=== PATIENT | female | born 1940 | race Caucasian/White ===

== ENCOUNTER 2019-01-06 11:16 | Emergency (ER) | payer MEDICARE ==
[2019-01-06] MEDS ORDERED: Sodium Chloride 0.9% 1000 ML 1,000 ML IV STA (11:47)
[2019-01-06] MEDS ORDERED: Sodium Chloride 0.9% 1000 ML 1,000 ML ONE (11:58)
[2019-01-06 12:00] LABS: Hematocrit 41.2 % (35-47); Hemoglobin 13.4 gm/dl (12.0-16.0); Mean Cell Volume 89.4 fl (78-100); Mean Corpuscular Hemoglobin 29.1 pg (26-32); Mean Corpuscular Hgb Concent. 32.5 g/dl (32-36); Platelet Count 523 K/mm3 (150-450); Red Blood Count 4.61 M/mm3 (4.1-5.4); Red Cell Distribution Width 13.5 % (11.5-14.0); White Blood Count 7.1 K/mm3 (4.0-10.5)
[2019-01-06 12:03] LABS: Appearance CLEAR (CLEAR); Bilirubin NEGATIVE (NEGATIVE); Blood NEGATIVE Ery/ul (0-5); Glucose NEGATIVE (NEGATIVE); Ketones NEGATIVE (NEGATIVE); Leukocyte Esterase NEGATIVE (NEGATIVE); Nitrite NEGATIVE (NEGATIVE); Protein,Urine Dip NEGATIVE (Negative); Specific Gravity 1.006 (1.005-1.025); Urobilinogen NEGATIVE mg/dL (0-1); WBC 0-2 /HPF (0-5)
[2019-01-06 12:14] LABS: ALBUMIN 4.2 g/dL (3.5-5.0); ALKALINE PHOSPHATASE 74 U/L (38-126); ANION GAP 16.4 MEQ/L (5-15); BLOOD UREA NITROGEN 16 mg/dL (7-17); CHLORIDE 99 mmol/L (98-107); Calcium 10.1 mg/dL (8.4-10.2); Carbon Dioxide 27 mmol/L (22-30); Creatinine 1 0.91 mg/dL (0.52-1.04); Glucose 106 mg/dL (74-106); Potassium 4.4 mmol/L (3.5-5.1); SGOT/AST 24 U/L (14-36); SGPT/ALT 21 U/L (0-35); SODIUM 138 mmol/L (137-145); Total Protein 7.8 g/dL (6.3-8.2)
--- NOTE | 2019-01-06 12:36 | ERPHSYRPT ---
- History of Present Illness Time Seen by Provider: 01/06/19 11:45 Source: patient Exam Limitations: no limitations Patient Subjective Stated Complaint: [place] like she has had flu like symptoms a couple of weeks ago and then thought she was getting better and now is extremely weak, decreased appetite, and night sweats Triage Nursing Assessment: Pt reports that about 2 weeks ago she felt like she had flu like symptoms and went and saw Kalpana French, was placed on Doxyclyline and also had an infusion of something, they found a spot on her lung and she is to have a CT done tomorrow at [facility], pt now feels extremely weak, has a decreased appetite and is waking with night sweats, BP 154/83, afebrile, denies diarrhea, denies vomiting, she found her daughter about a week ago with still unknown cause Physician History: 78 y/o white female presents with weakness, decreased appetite and flu sx for 2 weeks. pt states she did have to crawl through a window 2 weeks ago and found her daughter . pt has had a cxr within the last week. there is a "spot" present and pt has a chest ct scheduled for tomorrow. pt denies cp, denies abd pain, and denies n/v/d Timing/Duration: week(s) (2) Severity: mild Associated Symptoms: weakness Allergies/Adverse Reactions: No Known Drug Allergies Allergy (Unverified 01/06/19 11:44) Home Medications: Alendronate Sodium 70 mg [Fosamax 70 MG] 70 mg PO WEEKLY 01/04/19 [History ] Doxycycline Hyclate 100 mg [Vibramycin 100 MG] 100 mg PO DAILY 01/04/19 [ History] Enalapril Maleate 10 mg [Vasotec 10 MG] 10 mg PO DAILY 01/04/19 [History] Hx Tetanus, Diphtheria Vaccination/Date Given: Yes Hx Influenza Vaccination/Date Given: Yes Hx Pneumococcal Vaccination/Date Given: No - Review of Systems Constitutional: Weakness Eyes: No Symptoms Ears, Nose, & Throat: No Symptoms Respiratory: No Symptoms Cardiac: No Symptoms Abdominal/Gastrointestinal: Appetite Changes Genitourinary Symptoms: No Symptoms Musculoskeletal: No Symptoms Skin: No Symptoms Neurological: No Symptoms Psychological: No Symptoms Endocrine: No Symptoms Hematologic/Lymphatic: No Symptoms Immunological/Allergic: No Symptoms All Other Systems: Reviewed and Negative - Past Medical History Pertinent Past Medical History: Yes Neurological History: No Pertinent History ENT History: No Pertinent History Cardiac History: No Pertinent History Respiratory History: No Pertinent History Endocrine Medical History: No Pertinent History Musculoskeletal History: Osteoarthritis GI Medical History: Hemorrhoids History: No Pertinent History Psycho-Social History: Anxiety, Depression Female Reproductive Disorders: No Pertinent History Other Medical History: States " depression because i found my daughter a week ago" - Past Surgical History Past Surgical History: Yes Neuro Surgical History: No Pertinent History Cardiac: No Pertinent History Respiratory: No Pertinent History Gastrointestinal: No Pertinent History Genitourinary: No Pertinent History Musculoskeletal: No Pertinent History Female Surgical History: Hysterectomy Other Surgical History: BACK SURGERY - Social History Smoking Status: Never smoker Exposure to second hand smoke: No Drug Use: none Patient Lives Alone: Yes - Nursing Vital Signs Nursing Vital Signs: Initial Vital Signs Temperature 97.7 F 01/06/19 11:32 Blood Pressure 154/83 01/06/19 11:32 O2 Sat by Pulse Oximetry 96 01/06/19 11:32 Pain Scale Pain Intensity 0 - Physical Exam General Appearance: no apparent distress, alert, anxiety Eye Exam: PERRL/EOMI, eyes nml inspection Ears, Nose, Throat Exam: normal ENT inspection, moist mucous membranes Neck Exam: normal inspection, non-tender, supple, full range of motion Respiratory Exam: normal breath sounds, lungs clear, airway intact, No chest tenderness, No respiratory distress Cardiovascular Exam: regular rate/rhythm, normal heart sounds, normal peripheral pulses Gastrointestinal/Abdomen Exam: soft, normal bowel sounds, No tenderness, No guarding Pelvic Exam: not done Back Exam: normal inspection, normal range of motion, No CVA tenderness, No vertebral tenderness Extremity Exam: normal inspection, normal range of motion, pelvis stable Neurologic Exam: alert, oriented x 3, cooperative, synchronizer II-XII nml as tested Skin Exam: normal color, warm, dry Lymphatic Exam: No adenopathy SpO2 Interpretation: normal SpO2: 97 O2 Delivery: Room Air - Course Nursing assessment & vital signs reviewed: Yes EKG Interpreted by Me: RATE (78), Sinus Rhythm, NORMAL AXIS, Non-specific ST Changes, Other (no changes when compared to ekg dated 11/11/13) Ordered Tests: Active Orders 24 hr Category Date Time Status Clean Catch Urine Specimen STAT Care 01/06/19 11:47 Active EKG-ER Only STAT Care 01/06/19 11:48 Active IV Insertion STAT Care 01/06/19 11:47 Active Orthostatic Vital Signs STAT Care 01/06/19 11:47 Active CBC W DIFF Stat Lab 01/06/19 11:59 Completed CMP Stat Lab 01/06/19 11:59 Completed Manual Differential NC Stat Lab 01/06/19 11:59 Completed TROPONIN Q3H Lab 01/06/19 11:59 Completed TROPONIN Q3H Lab 01/06/19 15:00 Ordered TROPONIN Q3H Lab 01/06/19 18:00 Ordered TROPONIN Q3H Lab 01/06/19 21:00 Ordered UA W/RFX UR CULTURE Stat Lab 01/06/19 11:59 Completed Medication Summary Discontinued Medications Generic Name Dose Route Start Last Admin Trade Name Freq PRN Reason Stop Dose Admin Sodium Chloride 1,000 mls @ 999 mls/hr 01/06/19 11:47 01/06/19 12:01 Sodium Chloride 0.9% 1000 Ml IV 01/06/19 12:47 999 mls/hr .Q1H1M STA Administration Sodium Chloride Confirm 01/06/19 11:58 Sodium Chloride 0.9% 1000 Ml Administered 01/06/19 11:59 Dose 1,000 mls @ ud .ROUTE .STK-MED ONE Lab/Rad Data: Laboratory Result Diagrams 01/06/19 11:59 01/06/19 11:59 Laboratory Results 01/06/19 01/06/19 01/06/19 Range/Units 11:59 11:59 11:59 WBC 7.1 (4.0-10.5) K/mm3 RBC 4.61 (4.1-5.4) M/mm3 Hgb 13.4 (12.0-16.0) gm/dl Hct 41.2 (35-47) % MCV 89.4 (78-100) fl MCH 29.1 (26-32) pg MCHC 32.5 (32-36) g/dl RDW 13.5 (11.5-14.0) % Plt Count 523 H (150-450) K/mm3 MPV 10.0 H (6-9.5) fl Sodium 138 (137-145) mmol/L Potassium 4.4 (3.5-5.1) mmol/L Chloride 99 (98-107) mmol/L Carbon Dioxide 27 (22-30) mmol/L Anion Gap 16.4 H (5-15) MEQ/L BUN 16 (7-17) mg/dL Creatinine 0.91 (0.52-1.04) mg/dL Estimated GFR > 60.0 ML/MIN Glucose 106 (74-106) mg/dL Calcium 10.1 (8.4-10.2) mg/dL Total Bilirubin 0.40 (0.2-1.3) mg/dL AST 24 (14-36) U/L ALT 21 (0-35) U/L Alkaline Phosphatase 74 (38-126) U/L Troponin I < 0.012 (0.000-0.034) ng/mL Serum Total Protein 7.8 (6.3-8.2) g/dL Albumin 4.2 (3.5-5.0) g/dL Urine Color (YELLOW) Urine Appearance (CLEAR) Urine pH (5-6) Ur Specific [place] (1.005-1.025) Urine Protein (Negative) Urine Ketones (NEGATIVE) Urine Blood (0-5) Garth/ul Urine Nitrite (NEGATIVE) Urine Bilirubin (NEGATIVE) Urine Urobilinogen (0-1) mg/dL Ur Leukocyte Esterase (NEGATIVE) Urine WBC (Auto) (0-5) /HPF Urine RBC (Auto) (0-2) /HPF U Epithel Cells (Auto) (FEW) /HPF Urine Bacteria (Auto) (NEGATIVE) /HPF Urine Culture Reflexed (NO) Urine Glucose (NEGATIVE) mg/dL 01/06/19 Range/Units 11:59 WBC (4.0-10.5) K/mm3 RBC (4.1-5.4) M/mm3 Hgb (12.0-16.0) gm/dl Hct (35-47) % MCV (78-100) fl MCH (26-32) pg MCHC (32-36) g/dl RDW (11.5-14.0) % Plt Count (150-450) K/mm3 MPV (6-9.5) fl Sodium (137-145) mmol/L Potassium (3.5-5.1) mmol/L Chloride (98-107) mmol/L Carbon Dioxide (22-30) mmol/L Anion Gap (5-15) MEQ/L BUN (7-17) mg/dL Creatinine (0.52-1.04) mg/dL Estimated GFR ML/MIN Glucose (74-106) mg/dL Calcium (8.4-10.2) mg/dL Total Bilirubin (0.2-1.3) mg/dL AST (14-36) U/L ALT (0-35) U/L Alkaline Phosphatase (38-126) U/L Troponin I (0.000-0.034) ng/mL Serum Total Protein (6.3-8.2) g/dL Albumin (3.5-5.0) g/dL Urine Color STRAW (YELLOW) Urine Appearance CLEAR (CLEAR) Urine pH 6.0 (5-6) Ur Specific [place] 1.006 (1.005-1.025) Urine Protein NEGATIVE (Negative) Urine Ketones NEGATIVE (NEGATIVE) Urine Blood NEGATIVE (0-5) Garth/ul Urine Nitrite NEGATIVE (NEGATIVE) Urine Bilirubin NEGATIVE (NEGATIVE) Urine Urobilinogen NEGATIVE (0-1) mg/dL Ur Leukocyte Esterase NEGATIVE (NEGATIVE) Urine WBC (Auto) 0-2 (0-5) /HPF Urine RBC (Auto) NONE (0-2) /HPF U Epithel Cells (Auto) NONE (FEW) /HPF Urine Bacteria (Auto) NONE (NEGATIVE) /HPF Urine Culture Reflexed NO (NO) Urine Glucose NEGATIVE (NEGATIVE) mg/dL - Progress Progress: unchanged Counseled pt/family regarding: lab results, diagnosis, need for follow-up - Departure Departure Disposition: Home Clinical Impression: Weakness, Poor appetite Condition: Stable Critical Care Time: No Referrals: KAT FRENCH NP [Primary Care Provider] - Additional Instructions: increase your oral intake. keep your cat scan appointment for tomorrow. follow up with primary doctor for further management
[2019-01-06 13:37] LABS: Basophil 1 % (0.0-1.0); Eosinophil 1 % (0.00-3.0); Granulocyte Absolute (ANC) 4.48 (1.4-6.9); Lymphocytes 26 % (24-44); Monocyte 9 % (0.0-12.0); Neutrophils 63 % (36.0-66.0); Platelet Estimate INCREASED (NORMAL); Total Cells Counted 100
[2019-01-06 13:54] VITALS: BP 149/88; PULSE 77; O2SAT 95
== END 2019-01-06 13:56 | disposition home or self-care (01) ==
LOC: ED 11:16
DX: R53.1 Weakness (principal); R63.0 Anorexia
CPT/HCPCS: 36415; 80053; 81001; 84484; 85025; 93005; 96360; 99284

== ENCOUNTER 2019-07-22 04:13 | Emergency (ER) | payer BC, MEDICARE ==
[2019-07-22] MEDS ORDERED: PYRIDIUM 200 MG PO SCH (04:21)
[2019-07-22] MEDS ORDERED: PYRIDIUM 200 MG ONE (04:27)
[2019-07-22] MEDS ORDERED: Catapres 0.1 MG PO ONE (04:28)
[2019-07-22 04:32] VITALS: O2SAT 98
[2019-07-22] MEDS ORDERED: ZOFRAN ODT 4 MG PO ONE (04:34)
[2019-07-22 04:37] LABS: Appearance CLEAR (CLEAR); Bilirubin NEGATIVE (NEGATIVE); Blood NEGATIVE Ery/ul (0-5); Glucose NEGATIVE (NEGATIVE); Ketones SMALL (NEGATIVE); Leukocyte Esterase NEGATIVE (NEGATIVE); Mucus SLIGHT /HPF (NEGATIVE); Nitrite NEGATIVE (NEGATIVE); Protein,Urine Dip NEGATIVE (Negative); Specific Gravity 1.004 (1.005-1.025); Urobilinogen NEGATIVE mg/dL (0-1)
[2019-07-22] MEDS ORDERED: ZOFRAN ODT 4 MG ONE (04:37)
--- NOTE | 2019-07-22 04:42 | ERPHSYRPT ---
- History of Present Illness Time Seen by Provider: 07/22/19 04:20 Source: patient Exam Limitations: no limitations Patient Subjective Stated Complaint: pt arrived in er tonight stating that she cannot urinate and her uti seems to be getting worse.pt saw [employer] analyst yohana villela. has been on antibitics for this uti.has finished macrobid and is now taking cipro and is not feeling any better. pt has pain in lower abdomen and into legs. she rates pain as 8/10 Triage Nursing Assessment: pt shaking and gaurding lower abdomen stating that she has terrible pain there. Physician History: patient had urinary symptoms for the past 3 weeks. She been seen by her medical provider, who started her on Macrobid. She then was given a prescription for ciprofloxacin, but she finished Macrobid before starting ciprofloxacin. She's only been on ciprofloxacin for 2 days. She has dysuria, urinary frequency and suprapubic discomfort. Timing/Duration: week(s) (3), worse Activites at Onset: none Quality: burning Onset Location: suprapubic Pain Radiation: none Severity of Pain-Max: severe Severity of Pain-Current: severe Prior abdominal problems: similar symptoms, UTI Sexual intercourse history: not active Modifying Factors: Worsens With: urinating Associated Symptoms: dysuria, urinary frequency, No abdominal pain, No fever, No chills, No diaphoresis, No nausea, No vomiting, No nocturia, No polyuria, No loss of bladder control, No lower back pain, No lumps, No mass, No swelling, No syncope, No vaginal discharge, No vaginal fluid leakage Allergies/Adverse Reactions: No Known Drug Allergies Allergy (Verified 07/22/19 04:37) Home Medications: Alendronate Sodium 70 mg [Fosamax 70 MG] 70 mg PO WEEKLY 01/04/19 [History ] Doxycycline Hyclate 100 mg [Vibramycin 100 MG] 100 mg PO DAILY 01/04/19 [ History] Enalapril Maleate 10 mg [Vasotec 10 MG] 10 mg PO DAILY 01/04/19 [History] Ciprofloxacin HCl [Cipro] 500 mg PO DAILY 07/22/19 [History] Hx Tetanus, Diphtheria Vaccination/Date Given: Yes Hx Influenza Vaccination/Date Given: Yes Hx Pneumococcal Vaccination/Date Given: No - Review of Systems Constitutional: No Fever, No Chills, No Fatigue Eyes: No Eye Pain, No Vision Changes Ears, Nose, & Throat: No Mouth Pain, No Mouth Swelling, No Hoarse, No Painful Swallowing Respiratory: No Cough, No Dyspnea Cardiac: No Chest Pain, No Palpitations Abdominal/Gastrointestinal: Abdominal Pain, No Nausea, No Vomiting, No Hematemesis, No Hematochezia, No Melena Genitourinary Symptoms: Dysuria, Frequency, Urgency, No Hematuria, No Flank Pain , No Vaginal Discharge Musculoskeletal: No Arthralgias, No Back Pain, No Neck Pain Neurological: No Dizziness, No Focal Weakness, No Paralysis, No Parasthesia Psychological: No Anxiety Hematologic/Lymphatic: No Easy Bleeding, No Easy Bruising All Other Systems: Reviewed and Negative - Past Medical History Pertinent Past Medical History: Yes Neurological History: No Pertinent History ENT History: No Pertinent History Cardiac History: No Pertinent History, Hypertension Respiratory History: No Pertinent History Endocrine Medical History: No Pertinent History Musculoskeletal History: Osteoarthritis GI Medical History: Hemorrhoids History: No Pertinent History Psycho-Social History: Anxiety, Depression Female Reproductive Disorders: No Pertinent History Other Medical History: States " depression because i found my daughter a week ago" - Past Surgical History Past Surgical History: Yes Neuro Surgical History: No Pertinent History Cardiac: No Pertinent History Respiratory: No Pertinent History Gastrointestinal: No Pertinent History Genitourinary: No Pertinent History Musculoskeletal: No Pertinent History Female Surgical History: Hysterectomy Other Surgical History: BACK SURGERY - Social History Smoking Status: Never smoker Exposure to second hand smoke: No Drug Use: none Patient Lives Alone: Yes - Nursing Vital Signs Nursing Vital Signs: Initial Vital Signs Temperature 97.7 F 07/22/19 04:17 Pulse Rate 72 07/22/19 04:17 Respiratory Rate 18 07/22/19 04:17 O2 Sat by Pulse Oximetry 98 07/22/19 04:17 Pain Scale Pain Intensity 6 - Physical Exam General Appearance: no apparent distress Eye Exam: PERRL/EOMI, eyes nml inspection, No scleral icterus Ears, Nose, Throat Exam: normal ENT inspection, pharynx normal Neck Exam: normal inspection, non-tender, supple, full range of motion, No meningismus Respiratory Exam: normal breath sounds, lungs clear, airway intact, No chest tenderness, No respiratory distress, No diminished breath sounds, No accessory muscle use, No crackles/rales, No rhonchi, No wheezing, No stridor Cardiovascular Exam: regular rate/rhythm, normal heart sounds, normal peripheral pulses, capillary refill <2 sec Gastrointestinal/Abdomen Exam: soft, normal bowel sounds, No tenderness, No distention, No mass, No ecchymosis, No rebound Pelvic Exam: normal external exam, other (positive painless mass buldging out of the the vaginal introitus, consistent with the bladder prolaspsing; reductions attempts help place the anterior vaginal wall back into the vagina; examination chaperoned by Gisel Vasquez, DB and Paulina Dumont RN), No vaginal bleeding Rectal Exam: No hemorrhoids Back Exam: normal inspection, normal range of motion, No CVA tenderness, No vertebral tenderness, No decreased range of motion Extremity Exam: normal range of motion, pelvis stable, No inflammation, No swelling Neurologic Exam: alert, oriented x 3, cooperative, tnt powder worker II-XII nml as tested, normal mood/affect, sensation nml, No motor deficits, No agitation, No motor weakness Skin Exam: normal color, warm, dry, No rash, No jaundice, No cyanosis SpO2 Interpretation: normal SpO2: 98 O2 Delivery: Room Air - Course Nursing assessment & vital signs reviewed: Yes Ordered Tests: Active Orders 24 hr Category Date Time Status UA W/RFX UR CULTURE Stat Lab 07/22/19 04:20 Uncollected Medication Summary Generic Name Dose Route Start Last Admin Trade Name Freq PRN Reason Stop Dose Admin Phenazopyridine HCl 200 mg 07/22/19 04:21 07/22/19 04:30 Pyridium 200 Mg PO 08/21/19 04:20 200 mg TID KARLIE Administration Discontinued Medications Generic Name Dose Route Start Last Admin Trade Name Freq PRN Reason Stop Dose Admin Clonidine 0.1 mg 07/22/19 04:28 07/22/19 04:41 Catapres 0.1 Mg PO 07/22/19 04:29 Not Given STAT ONE Ondansetron HCl 4 mg 07/22/19 04:34 07/22/19 04:38 Zofran Odt 4 Mg PO 07/22/19 04:35 4 mg STAT ONE Administration Ondansetron HCl Confirm 07/22/19 04:37 Zofran Odt 4 Mg Administered 07/22/19 04:38 Dose 4 mg .ROUTE .STK-MED ONE Lab/Rad Data: Laboratory Results 07/22/19 Range/Units 04:25 Urine Color STRAW (YELLOW) Urine Appearance CLEAR (CLEAR) Urine pH 8.0 (5-6) Ur Specific [place] 1.004 (1.005-1.025) Urine Protein NEGATIVE (Negative) Urine Ketones SMALL (NEGATIVE) Urine Blood NEGATIVE (0-5) Garth/ul Urine Nitrite NEGATIVE (NEGATIVE) Urine Bilirubin NEGATIVE (NEGATIVE) Urine Urobilinogen NEGATIVE (0-1) mg/dL Ur Leukocyte Esterase NEGATIVE (NEGATIVE) Urine WBC (Auto) NONE (0-5) /HPF Urine RBC (Auto) NONE (0-2) /HPF U Epithel Cells (Auto) NONE (FEW) /HPF Urine Bacteria (Auto) NONE (NEGATIVE) /HPF Urine Mucus (Auto) SLIGHT (NEGATIVE) /HPF Urine Culture Reflexed NO (NO) Urine Glucose NEGATIVE (NEGATIVE) mg/dL patient has a urine culture from 07/06/2019: Grew out Proteus mirabilis and was pansensitive; did not mention if the culture was sensitive to nitrofurantoin. - Progress Progress: improved Air Movement: good Progress Note: 07/22/19 05:44 Some improvement with pyridium 07/22/19 06:05 Some success with reduction of bladder prolapse Counseled pt/family regarding: lab results, diagnosis, need for follow-up - Departure Departure Disposition: Home Clinical Impression: Dysuria, Female bladder prolapse, Essential hypertension Condition: Good Critical Care Time: No Referrals: KAT VILLELA NP [Primary Care Provider] - 07/22/19 (call to see if she has any referrals) GUY NINA [COURTESY STAFF] - 07/22/19 (Urologist for your reference-can help with your cystocele (bladder prolapse)) Instructions: High Blood Pressure (DC), Urinary Tract Infection, Adult (DC), Dysuria, Adult (DC), Cystocele and Rectocele (DC) Additional Instructions: it appears according to your examination that you have a prolapsed bladder also known as a cystocele. This is probably contributing to your urinary symptoms. Finish your ciprofloxacin and give the Urologist referral a call today to make an appointment to discuss further evaluation and management of your findings today. Use the medication prescribed for symptomatic relief as needed, but be aware that it will cause discoloration of urine and sometimes is excreted in tears and sweat also. Return immediately back to the emergency department if you have any new fever, no bowel pain, worsening back pain, new skin rashes, or any other concerning signs or symptoms that were not present on today's emergency department visit immediate reevaluation in the emergency department. Forms: Work/School Release Form Prescriptions: Phenazopyridine HCl 200 mg [Pyridium 200 mg] 200 mg PO TID PRN #6 tablet PRN Reason: Dysuria/Urinary Symptoms
[2019-07-22 06:28] VITALS: BP 148/89; PULSE 81
== END 2019-07-22 06:27 | disposition home or self-care (01) ==
LOC: ED 04:13
DX: R30.0 Dysuria (principal); N81.10 Cystocele, unspecified; I10 Essential (primary) hypertension; Z79.899 Other long term (current) drug therapy; F41.9 Anxiety disorder, unspecified; F32.9 Major depressive disorder, single episode, unspecified; M19.90 Unspecified osteoarthritis, unspecified site
CPT/HCPCS: 81001; 99283; Q0162; A9270-GY

== ENCOUNTER 2021-02-17 14:22 | Emergency (ER) | payer BC, MEDICARE ==
[2021-02-17] MEDS ORDERED: Zofran 4 MG/2 ML VIAL ONE (14:55)
[2021-02-17] MEDS ORDERED: Zofran 4 MG/2 ML VIAL IV ONE (15:45)
[2021-02-17] MEDS ORDERED: SUBLIMAZE 100 MCG/2 ML IV ONE (15:45)
[2021-02-17] MEDS ORDERED: SUBLIMAZE 100 MCG/2 ML ONE (15:53)
[2021-02-17 17:11] VITALS: BP 167/83; PULSE 73; O2SAT 95
--- NOTE | 2021-02-17 17:21 | ERPHSYRPT ---
- History of Present Illness Time Seen by Provider: 02/17/21 15:45 Source: patient Exam Limitations: no limitations Patient Subjective Stated Complaint: Fall Triage Nursing Assessment: Patient brought back to ED and transferred to bed with assist of 1. Patient A+O X 3. Patient's skin pink, warm and dry. Patient complains of injuries after a fall prior to coming into ED. Patient states she was standing on a 6 foot ladder cleaning out her gutters when she stood on the top of her trash can to reach for something causing the wheels on trashcan to move causing patient to fall landing on left arm and foot. Patient has obvious deformity to left wrist with bruising and swelling. Patient also has bruising and swelling to left outer ankle. Patient's left leg noted to be shorter. Patient complains of pain to left arm and foot 07/08. Patient diaphoretic. Physician History: Is an 80-year-old white female who was cleaning the gutters on her house standing on a 6 foot ladder when she attempted to step off the ladder onto a trash can that had wheels which went out from under her and she fell. She complains of pain in both feet and in the left wrist. She denies any loss of consciousness pain in her head neck back pelvis store abdomen. Occurred: just prior to arrival Reason for Fall: fell from height Injuries/Pain Location: upper extremity, lower extremity (Left wrist both feet) Loss of Consciousness: no loss of consciousness Quality: throbbing Severity of Pain-Max: severe Severity of Pain-Current: severe Modifying Factors: Improves With: movement Associated Symptoms (Fall): extremity injury Allergies/Adverse Reactions: No Known Drug Allergies Allergy (Verified 02/17/21 14:35) Home Medications: Alendronate Sodium 70 mg [Fosamax 70 MG] 70 mg PO WEEKLY 01/04/19 [History] Doxycycline Hyclate 100 mg [Vibramycin 100 MG] 100 mg PO DAILY 01/04/19 [History] Enalapril Maleate 10 mg [Vasotec 10 MG] 10 mg PO DAILY 01/04/19 [History] Ciprofloxacin HCl [Cipro] 500 mg PO DAILY 07/22/19 [History] Hx Tetanus, Diphtheria Vaccination/Date Given: Yes Hx Influenza Vaccination/Date Given: Yes Hx Pneumococcal Vaccination/Date Given: No Immunizations Up to Date: Yes Travel Risk - International Travel Have you traveled outside of the country in past 3 weeks: No - Coronavirus Screening Are you exhibiting any of the following symptoms?: No Close contact with a COVID-19 positive Pt in past 14-21 Days: No - Vaccine Status Have you recieved a Covid-19 vaccination: Yes Rad Technologist: Moderna - Vaccination Dates Date of 2cond Vaccination (if applicable): November 28, 2020 - Review of Systems Constitutional: No Fever, No Chills Eyes: No Symptoms Ears, Nose, & Throat: No Symptoms Respiratory: No Cough, No Dyspnea Cardiac: No Chest Pain, No Edema, No Syncope Abdominal/Gastrointestinal: No Abdominal Pain, No Nausea, No Vomiting, No Diarrhea Genitourinary Symptoms: No Dysuria Musculoskeletal: No Back Pain, No Neck Pain Skin: No Rash Neurological: No Dizziness, No Focal Weakness, No Sensory Changes Psychological: No Symptoms Endocrine: No Symptoms All Other Systems: Reviewed and Negative - Past Medical History Pertinent Past Medical History: Yes Neurological History: No Pertinent History ENT History: No Pertinent History Cardiac History: No Pertinent History, Hypertension Respiratory History: No Pertinent History Endocrine Medical History: No Pertinent History Musculoskeletal History: Osteoarthritis GI Medical History: Hemorrhoids History: No Pertinent History Psycho-Social History: Anxiety, Depression Female Reproductive Disorders: No Pertinent History Other Medical History: States " depression because i found my daughter a week ago" - Past Surgical History Past Surgical History: Yes Neuro Surgical History: No Pertinent History Cardiac: No Pertinent History Respiratory: No Pertinent History Gastrointestinal: No Pertinent History Genitourinary: No Pertinent History Musculoskeletal: No Pertinent History Female Surgical History: Hysterectomy Other Surgical History: BACK SURGERY - Social History Smoking Status: Never smoker Exposure to second hand smoke: Yes Drug Use: none Patient Lives Alone: Yes - Female History Hx Now: No - Nursing Vital Signs Nursing Vital Signs: Initial Vital Signs Pulse Rate 66 02/17/21 15:30 Respiratory Rate 18 02/17/21 15:30 Blood Pressure 152/65 02/17/21 15:30 O2 Sat by Pulse Oximetry 96 02/17/21 15:30 Pain Scale Pain Intensity 10 - [place] Coma Score Best Eye Response (Miki): (4) open spontaneously Best Verbal Response ([place]): (5) oriented Best Motor Response (Miki): (6) obeys commands [place] Total: 15 - Physical Exam General Appearance: moderate distress, alert Head Injury: no evidence of injury Eye Exam: PERRL/EOMI ENT Exam: airway nml Neck Exam: normal inspection, No tenderness Respiratory/Chest Exam: normal breath sounds, No chest tenderness, No respiratory distress Cardiovascular Exam: normal heart sounds Gastrointestinal Exam: soft, No tenderness, No distention, No guarding, No ecchymosis Rectal Exam: deferred Back Exam: normal inspection, No vertebral tenderness Extremity Exam: other (Examination of the left upper extremity shows a swan-neck deformity of the wrist with an obvious fracture neurovascular tendon are intact pulses intact cap refill is good. There is also tenderness in both heels the left worse than the right) Neurologic Exam: alert, oriented x 3, cooperative, nml cerebellar function, No motor deficits, No sensory deficit Skin Exam: normal color, warm, dry SpO2 Interpretation: normal SpO2: 95 O2 Delivery: Room Air Procedures - Splinting Location of Splint: Left, Wrist Type of Splint: Orthoglass Short Arm Splint Splint Applied By: ED Nurse Pre-Proc Neuro Vasc Exam: normal Post-Proc Neuro Vasc Exam: neurovascular intact - Course Nursing assessment & vital signs reviewed: Yes - Radiology Exams Other X-ray Interpretation: Interpreted by me, Other (X-rays of the feet show bilateral calcaneus fractures x-rays of the left wrist shows a comminuted displaced fracture of the wrist) Ordered Tests: Active Orders 24 hr Category Date Time Status ANKLE (3 VIEWS) Stat Exams 02/17/21 14:52 Taken ANKLE (3 VIEWS) Stat Exams 02/17/21 16:10 Taken FOOT (MINIMUM 3 VIEWS) Stat Exams 02/17/21 14:53 Taken FOOT (MINIMUM 3 VIEWS) Stat Exams 02/17/21 16:10 Taken WRIST (MIN 3 VIEWS) Stat Exams 02/17/21 14:53 Taken Medication Summary Discontinued Medications Generic Name Dose Route Start Last Admin Trade Name Freq PRN Reason Stop Dose Admin Fentanyl Citrate Confirm 02/17/21 15:53 Sublimaze 100 Mcg/2 Ml Administered 02/17/21 15:54 Dose 100 mcg .ROUTE .STK-MED ONE Ondansetron HCl Confirm 02/17/21 14:55 Zofran 4 Mg/2 Ml Vial Administered 02/17/21 14:56 Dose 4 mg .ROUTE .STK-MED ONE - Progress Progress: improved - Departure Departure Disposition: Transfer (Deferred to [facility] to Dr. June was the accepting physician) Clinical Impression: Bilateral calcaneal fractures, Left wrist fracture Condition: Fair Critical Care Time: No Referrals: KAT JARA, AYUSH [Primary Care Provider] -
--- NOTE | 2021-02-17 22:05 | XRAY ---
Indication: Pain following fall. Comparison: None 3 view right ankle demonstrates osteopenia. No other bony, articular, or soft tissue abnormalities.
--- NOTE | 2021-02-17 22:07 | XRAY ---
Indication: Pain following fall. Comparison: None 3 view left ankle demonstrates nondisplaced plantar calcaneus fracture with soft tissue swelling. Incidental osteopenia. No other bony, articular, or soft tissue abnormalities. Comment: Interpreting ER clinician does not report fracture. I gave telephone report to Dr. Yao at 2203 hrs on February 17, 2021.
--- NOTE | 2021-02-17 22:09 | XRAY ---
Indication: Pain following fall. Comparison: None 3 nonweightbearing views left foot demonstrates nondisplaced plantar calcaneus fracture with soft tissue swelling. Incidental osteopenia and old distal 5th metatarsal fracture. No other bony, articular, or soft tissue abnormalities. Comment: Interpreting ER clinician does not report fracture. I gave telephone report to Dr. Yao at 2203 hrs on February 17, 2021.
--- NOTE | 2021-02-17 22:09 | XRAY ---
Indication: Pain following fall. Comparison: None 3 nonweightbearing views right foot demonstrates osteopenia and old 3rd metatarsal head fracture. No other bony, articular, or soft tissue abnormalities.
--- NOTE | 2021-02-17 22:11 | XRAY ---
Indication: Pain following fall. Comparison: None 3 view left wrist demonstrates comminuted and displaced distal radius/ulna fractures with bayonet apposition/alignment, intra-articular fracture extension, and soft tissue swelling. Elsewhere osteopenia and mild degenerative changes 1st metacarpal multangular articulation. No other bony, articular, or soft tissue abnormalities. Comment: Interpreting ER clinician does not report fracture. I gave telephone report to Dr. Yao at 2203 hrs on February 17, 2021.
== END 2021-02-17 18:15 | disposition short-term general hospital (02) ==
LOC: ED 14:22
DX: S92.002A Unspecified fracture of left calcaneus, initial encounter for closed fracture (principal); S92.001A Unspecified fracture of right calcaneus, initial encounter for closed fracture; W11.XXXA Fall on and from ladder, initial encounter; Y93.9 Activity, unspecified; Y92.9 Unspecified place or not applicable
CPT/HCPCS: 73110; 73610; 73630; 96374; 96375; 99285; J2405; J3010

== ENCOUNTER 2022-05-05 16:34 | Emergency (ER) | payer MEDICARE, OTHER ==
--- NOTE | 2022-05-05 16:41 | ERPHSYRPT ---
- History of Present Illness Time Seen by Provider: 05/05/22 16:41 Source: patient Exam Limitations: no limitations Physician History: This is an 81-year-old white female who presents to the emergency department after 8 days of having back pain. Patient has a history of hypertension and osteoporosis. She went to urgent care a couple of days ago and they gave her an injection of some type of medication but she does not recall the name of that. She states she did not have any imaging done and she was not provided with any type of prescription. Her back pain has persisted. She did not fall or have any acute traumatic injury. She has no urinary issues. Patient drove herself into the hospital and cannot get a ride home per her report. Timing/Duration: day(s) (8) Method of Injury: other (No injury) Quality: aching, cramping Back Pain Location: lumbar spine, paraspinous muscles Severity of Pain-Max: moderate Severity of Pain-Current: moderate Modifying Factors: Improves With: movement Associated Symptoms: lower back pain, muscle spasms, No urinary incontinence, No loss of bowel control, No problems urinating, No numbness in legs/feet, No sensory/motor loss, No tingling in legs/feet Previous symptoms: no prior history Allergies/Adverse Reactions: No Known Drug Allergies Allergy (Verified 02/17/21 14:35) Home Medications: Alendronate Sodium 70 mg [Fosamax 70 MG] 70 mg PO WEEKLY 01/04/19 [History] Enalapril Maleate 10 mg [Vasotec 10 MG] 10 mg PO DAILY 01/04/19 [History] Carvedilol [Coreg ] 6.25 mg PO BID 05/05/22 [History] Pravastatin Sodium 20 mg PO DAILY 05/05/22 [History] Hx Tetanus, Diphtheria Vaccination/Date Given: Yes Hx Influenza Vaccination/Date Given: Yes Hx Pneumococcal Vaccination/Date Given: No Travel Risk - International Travel Have you traveled outside of the country in past 3 weeks: No - Coronavirus Screening Are you exhibiting any of the following symptoms?: No Close contact with a COVID-19 positive Pt in past 14-21 Days: No - Vaccine Status Have you recieved a Covid-19 vaccination: Yes Wire Bound Box Machine Helper: Moderna - Vaccination Dates Date of 2cond Vaccination (if applicable): November 28, 2020 - Review of Systems Constitutional: No Symptoms Eyes: No Symptoms Ears, Nose, & Throat: No Symptoms Respiratory: No Symptoms Cardiac: No Symptoms Abdominal/Gastrointestinal: No Symptoms Genitourinary Symptoms: No Symptoms Musculoskeletal: Back Pain Skin: No Symptoms Neurological: No Symptoms Psychological: No Symptoms Endocrine: No Symptoms Hematologic/Lymphatic: No Symptoms Immunological/Allergic: No Symptoms All Other Systems: Reviewed and Negative - Past Medical History Pertinent Past Medical History: Yes Neurological History: No Pertinent History ENT History: No Pertinent History Cardiac History: No Pertinent History, Hypertension Respiratory History: No Pertinent History Endocrine Medical History: No Pertinent History Musculoskeletal History: Osteoarthritis GI Medical History: Hemorrhoids History: No Pertinent History Psycho-Social History: Anxiety, Depression Female Reproductive Disorders: No Pertinent History Other Medical History: States " depression because i found my daughter a week ago" - Past Surgical History Past Surgical History: Yes Neuro Surgical History: No Pertinent History Cardiac: No Pertinent History Respiratory: No Pertinent History Gastrointestinal: No Pertinent History Genitourinary: No Pertinent History Musculoskeletal: No Pertinent History Female Surgical History: Hysterectomy Other Surgical History: BACK SURGERY - Social History Smoking Status: Never smoker Exposure to second hand smoke: Yes Drug Use: none Patient Lives Alone: Yes - Nursing Vital Signs Nursing Vital Signs: Initial Vital Signs Temperature 98.5 F 05/05/22 16:35 Pulse Rate 80 05/05/22 16:35 Respiratory Rate 18 05/05/22 16:35 Blood Pressure 184/122 05/05/22 16:35 O2 Sat by Pulse Oximetry 97 05/05/22 16:35 Pain Scale Pain Intensity [Left Lower 8 Back] Pain Intensity 8 - Physical Exam General Appearance: no apparent distress, alert, anxiety, thin Eye Exam: PERRL/EOMI, eyes nml inspection Ears, Nose, Throat Exam: normal ENT inspection, moist mucous membranes Neck Exam: normal inspection, non-tender, supple, full range of motion Respiratory Exam: normal breath sounds, lungs clear, airway intact, No chest tenderness, No respiratory distress Cardiovascular Exam: regular rate/rhythm, normal heart sounds, normal peripheral pulses Gastrointestinal Exam: soft, normal bowel sounds, No tenderness Pelvic Exam: not done Rectal Exam: not done Back Exam: vertebral tenderness (Mild lumbar level), decreased range of motion, muscle spasm, No CVA tenderness Extremity Exam: normal inspection, normal range of motion, pelvis stable, other (Pedal pulses are strong and equal bilaterally) Neurologic Exam: alert, oriented x 3, cooperative, retail brand ambassador II-XII nml as tested, normal mood/affect, nml cerebellar function, nml station & gait, sensation nml Skin Exam: normal color, warm, dry Lymphatic Exam: No adenopathy SpO2 Interpretation: normal O2 Delivery: Room Air - Course Nursing assessment & vital signs reviewed: Yes Ordered Tests: Active Orders 24 hr Category Date Time Status LUMBAR SPINE W/O [CT] Stat Exams 05/05/22 17:52 Taken Medication Summary Discontinued Medications Generic Name Dose Route Start Last Admin Trade Name Freq PRN Reason Stop Dose Admin Hydrocodone Bitart/Acetaminophen 2 tab 05/05/22 18:04 Hydrocodone/Apap 5/325 Mg Tablet PO 05/05/22 18:05 SENT HOME W/ PATIENT ONE Hydrocodone Bitart/Acetaminophen Confirm 05/05/22 18:09 Hydrocodone/Apap 5/325 Mg Tablet Administered 05/05/22 18:10 Dose 2 tab .ROUTE .STK-MED ONE - Progress Progress: unchanged Progress Note: 05/05/22 18:37 CAT scan of lumbar spine shows L1 compression fracture that is of indeterminate age. There is also some mild cord compression in the L3-L4, L4-L5 spaces. There are multilevel degenerative changes in the lumbar spine Counseled pt/family regarding: diagnosis, need for follow-up, rad results - Departure Departure Disposition: Home Clinical Impression: Compression fx, lumbar spine Condition: Stable Critical Care Time: No Referrals: KAT JARA NP [Primary Care Provider] - Follow up/PCP as directed Additional Instructions: Take your medication as prescribed. Call your primary care provider's office tomorrow to make arrangements for follow-up appointment and referral to a back specialist if indicated. Do not do any excessive lifting bending twisting running or jumping activity. Prescriptions: Hydrocodone/APAP 5/325 [[place] 5/325 mg] 1 each PO Q8H PRN PRN #6 tablet MDD 3 PRN Reason: Pain Prednisone 10 mg [Deltasone 10 mg] 10 mg PO TID #12 tablet
[2022-05-05 17:22] VITALS: BP 176/109; PULSE 89; O2SAT 95
[2022-05-05] MEDS ORDERED: NORCO 5/325 MG PO ONE (18:04)
[2022-05-05] MEDS ORDERED: NORCO 5/325 MG ONE (18:09)
--- NOTE | 2022-05-05 20:20 | XRAY ---
Indication: Low back pain 1 week. Multiple contiguous axial images obtained through the lumbar spine. Sagittal and coronal reformatted images obtained. Comparison: June 14, 2008 Osseous structures remain demineralized. Worsening L2-L3 and L4-S1 degenerative disc disease with now disc space loss and degenerative vacuum disc phenomena. Again bilateral L5 spondylolysis with worsening 5-6 mm anterolisthesis, previously 3-4 mm. Interval L4 kyphoplasty. New L1 compression fracture with approximately 25-50% height loss of uncertain chronicity without spinal canal or foraminal stenosis. Remaining visualized noncontrasted soft tissues again demonstrates mild bibasilar fibrosis/scarring and worsening mild scattered aortoiliac calcifications without AAA. Impression: 1. New L1 compression fracture of uncertain chronicity. 2. Status post L4 kyphoplasty. 3. Again osteopenia with worsening multilevel degenerative disc disease. 4. Again L5 spondylolysis with worsening grade 1-2 listhesis. Comment: Preliminary interpretation made by [facility]. No critical discrepancy.
== END 2022-05-05 18:45 | disposition home or self-care (01) ==
LOC: ED 16:34
DX: M48.56XA Collapsed vertebra, not elsewhere classified, lumbar region, initial encounter for fracture (principal); M54.50 Low back pain, unspecified; I10 Essential (primary) hypertension; Z79.891 Long term (current) use of opiate analgesic; Z79.52 Long term (current) use of systemic steroids; Z79.899 Other long term (current) drug therapy
CPT/HCPCS: 72131; 99283; A9270-GY

== ENCOUNTER 2022-09-29 16:00 | Emergency (ER) | payer MEDICARE, OTHER ==
[2022-09-29] MEDS ORDERED: NORCO 5/325 MG ONE ×2 (16:30→17:54)
[2022-09-29] MEDS ORDERED: NORCO 5/325 MG PO ONE ×2 (16:30→17:40)
[2022-09-29] MEDS ORDERED: DELTASONE 20 MG ONE (16:30)
[2022-09-29 16:34] VITALS: O2SAT 96
[2022-09-29 16:36] LABS: Appearance CLEAR (CLEAR); Bilirubin NEGATIVE (NEGATIVE); Glucose NEGATIVE (NEGATIVE); Ketones TRACE (NEGATIVE); RBC TRACE-INTACT Ery/ul (0-5); Specific Gravity 1.015 (1.005-1.025)
[2022-09-29 16:37] LABS: Dipstick done @ ? MAIN LAB; Nitrite NEGATIVE (NEGATIVE); Protein,Urine Dip NEGATIVE (Negative); Urobilinogen 0.2 mg/dL (0-1)
[2022-09-29 16:38] LABS: Bacteria RARE /HPF (NEGATIVE); Epithelial Cells RARE /HPF (FEW); Mucus SLIGHT /HPF (NEGATIVE); RBC 0-2 /HPF (0-2)
[2022-09-29 16:42] LABS: Urine Cultured Indicated? YES
[2022-09-29 17:13] LABS: INFLUENZA A NEGATIVE (NEGATIVE); INFLUENZA B NEGATIVE (NEGATIVE); RESPIRATORY SYNCTIAL VIRUS NEGATIVE (Negative)
[2022-09-29 17:18] LABS: SARS-CoV-2 Xpert Express POSITIVE (NEGATIVE)
[2022-09-29] MEDS ORDERED: Sodium Chloride 0.9% 1000 ML 1,000 ML IV SCH (17:45)
--- NOTE | 2022-09-29 17:53 | ERPHSYRPT ---
- History of Present Illness Time Seen by Provider: 09/29/22 16:30 Source: patient Exam Limitations: no limitations Patient Subjective Stated Complaint: C/O lower back pain that started yesterday. Patient states she was putting up [place] decorations at home yesterday and may have twisted her back lifting the heavy chest lid. Triage Nursing Assessment: Patient brought back to the ED in w/c. She is alert and oriented. No SOB. Body movements are slow related to pain level. Patient displaying s/s of pain. No skin alterations noted to back. Physician History: Patient is an 82-year-old female who is very pleasant who presents with low back pain. She was putting up [place] decorations yesterday in her home and thinks she lifted the lid of a very heavy chest which exacerbated her low back pain. In April of last year she had an episode of low back pain which was due to spinal stenosis and compression fracture of L1. 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 She does have a history of hypertension and osteopenia. Timing/Duration: yesterday Method of Injury: bending, lifting Quality: sharp, aching Back Pain Location: lumbar spine Back Pain Radiation: lower legs Modifying Factors: Improves With: movement Associated Symptoms: nausea, numbness in legs/feet, tingling in legs/feet, lower back pain Previous symptoms: no prior history Allergies/Adverse Reactions: No Known Drug Allergies Allergy (Verified 09/29/22 16:20) Home Medications: Alendronate Sodium 70 mg [Fosamax 70 MG] 70 mg PO WEEKLY 01/04/19 [History] Enalapril Maleate 10 mg [Vasotec 10 MG] 10 mg PO BID 01/04/19 [History] Carvedilol [Coreg ] 6.25 mg PO BID 05/05/22 [History] Pravastatin Sodium 40 mg PO DAILY 05/05/22 [History] Amlodipine Besylate [Norvasc] 1 tab PO DAILY 09/29/22 [History] Hx Tetanus, Diphtheria Vaccination/Date Given: Yes Hx Influenza Vaccination/Date Given: No (Last one in 2020) Hx Pneumococcal Vaccination/Date Given: No Immunizations Up to Date: Yes Travel Risk - International Travel Have you traveled outside of the country in past 3 weeks: No - Coronavirus Screening Are you exhibiting any of the following symptoms?: Yes Symptoms: Fever, Headaches/Body Aches/Fatigue - Vaccine Status Have you recieved a Covid-19 vaccination: Yes 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 - Vaccination Dates Date of 2cond Vaccination (if applicable): November 28, 2020 - Review of Systems Constitutional: No Fever, No Chills Eyes: No Symptoms Ears, Nose, & Throat: No Symptoms Respiratory: No Cough, No Dyspnea Cardiac: No Chest Pain, No Edema, No Syncope Abdominal/Gastrointestinal: No Abdominal Pain, No Nausea, No Vomiting, No Diarrhea Genitourinary Symptoms: No Dysuria Musculoskeletal: Arthralgias, Back Pain, Myalgias, No Neck Pain Skin: No Rash Neurological: No Dizziness, No Focal Weakness, No Sensory Changes Psychological: No Symptoms Endocrine: No Symptoms All Other Systems: Reviewed and Negative - Past Medical History Pertinent Past Medical History: Yes Neurological History: No Pertinent History ENT History: No Pertinent History Cardiac History: High Cholesterol, Hypertension Respiratory History: No Pertinent History Endocrine Medical History: No Pertinent History Musculoskeletal History: Osteoarthritis, Osteoporosis GI Medical History: Hemorrhoids History: No Pertinent History Psycho-Social History: Anxiety, Depression Female Reproductive Disorders: No Pertinent History Other Medical History: States " depression because i found my daughter a week ago" - Past Surgical History Past Surgical History: Yes Neuro Surgical History: No Pertinent History Cardiac: No Pertinent History Respiratory: No Pertinent History Gastrointestinal: No Pertinent History Genitourinary: No Pertinent History Musculoskeletal: No Pertinent History Female Surgical History: Hysterectomy Other Surgical History: BACK SURGERY - Social History Smoking Status: Never smoker Exposure to second hand smoke: Yes Drug Use: none Patient Lives Alone: Yes - Nursing Vital Signs Nursing Vital Signs: Initial Vital Signs Temperature 98 F 09/29/22 16:21 Pulse Rate 70 09/29/22 16:21 Respiratory Rate 19 09/29/22 16:21 Blood Pressure 186/100 09/29/22 16:21 O2 Sat by Pulse Oximetry 96 09/29/22 16:21 Pain Scale Pain Intensity [Lower back] 10 Pain Intensity 10 - Physical Exam General Appearance: moderate distress Eye Exam: PERRL/EOMI, eyes nml inspection Ears, Nose, Throat Exam: normal ENT inspection Neck Exam: normal inspection, non-tender, supple, full range of motion, No meningismus, No midline tenderness Respiratory Exam: normal breath sounds, lungs clear, No respiratory distress Cardiovascular Exam: regular rate/rhythm, normal heart sounds Gastrointestinal Exam: soft, normal bowel sounds Pelvic Exam: not done Rectal Exam: deferred Back Exam: vertebral tenderness, decreased range of motion, point tenderness Extremity Exam: normal inspection, normal range of motion, No calf tenderness, No pedal edema Neurologic Exam: alert, oriented x 3, cooperative Skin Exam: normal color, warm, dry, No rash SpO2 Interpretation: normal SpO2: 96 O2 Delivery: Room Air - Course Nursing assessment & vital signs reviewed: Yes Ordered Tests: Active Orders 24 hr Category Date Time Status IV Insertion STAT Care 09/29/22 17:41 Ordered LUMBAR SPINE W/O [CT] Stat Exams 09/29/22 16:26 Taken BLOOD CULTURE Stat Lab 09/29/22 17:42 Ordered CBC W DIFF Stat Lab 09/29/22 17:41 Ordered CMP Stat Lab 09/29/22 17:41 Ordered CULTURE,URINE Stat Lab 09/29/22 16:28 Received Lactic Acid Stat Lab 09/29/22 17:41 Ordered UA W/RFX CULTURE Stat Lab 09/29/22 16:28 Completed Medication Summary Generic Name Dose Route Start Last Admin Trade Name Freq PRN Reason Stop Dose Admin Sodium Chloride 1,000 mls @ 100 mls/hr 09/29/22 17:45 Sodium Chloride 0.9% 1000 Ml IV 10/29/22 17:44 .Q10H KARLIE Prednisone 20 mg 09/30/22 16:30 09/29/22 16:33 Prednisone 20 Mg Tablet PO 09/30/22 16:31 20 mg STAT ONE Administration Discontinued Medications Generic Name Dose Route Start Last Admin Trade Name Freq PRN Reason Stop Dose Admin Hydrocodone Bitart/Acetaminophen 1 tab 09/29/22 16:30 09/29/22 16:33 Hydrocodone/Apap 5/325 1 Tab Tablet PO 09/29/22 16:31 1 tab STAT ONE Administration Hydrocodone Bitart/Acetaminophen Confirm 09/29/22 16:30 Hydrocodone/Apap 5/325 1 Tab Tablet Administered 09/29/22 16:31 Dose 1 tab .ROUTE .STK-MED ONE Hydrocodone Bitart/Acetaminophen 1 tab 09/29/22 17:40 Hydrocodone/Apap 5/325 1 Tab Tablet PO 09/29/22 17:41 STAT ONE Prednisone Confirm 09/29/22 16:30 Prednisone 20 Mg Tablet Administered 09/29/22 16:31 Dose 20 mg .ROUTE .STK-MED ONE Lab/Rad Data: Laboratory Results 09/29/22 09/29/22 Range/Units 16:40 16:28 Urinalys Dipstick Clnc MAIN LAB Urine Color YELLOW (YELLOW) Urine Appearance CLEAR (CLEAR) Urine pH 7.0 (5-6) Ur Specific [place] 1.015 (1.005-1.025) POC Urine Protein Conf NEGATIVE (Negative) Urine Ketones TRACE A (NEGATIVE) Urine Nitrite NEGATIVE (NEGATIVE) Urine Bilirubin NEGATIVE (NEGATIVE) Urine Urobilinogen 0.2 (0-1) mg/dL Urine Leukocytes TRACE A (NEGATIVE) Urine WBC (Auto) 6-10 A (0-5) /HPF Urine RBC (Auto) 0-2 (0-2) /HPF U Epithel Cells (Auto) RARE (FEW) /HPF Urine Bacteria (Auto) RARE (NEGATIVE) /HPF Urine RBC TRACE-INTACT A (0-5) Garth/ul Urine Mucus (Auto) SLIGHT A (NEGATIVE) /HPF Ur Culture Indicated? YES Urine Glucose NEGATIVE (NEGATIVE) mg/dL Influenza Type A Ag NEGATIVE (NEGATIVE) Influenza Type B Ag NEGATIVE (NEGATIVE) RSV (PCR) NEGATIVE (Negative) SARS-CoV-2 (PCR) POSITIVE A (NEGATIVE) - Progress Progress Note: 09/29/22 17:53 There is some uncertainty as to whether the patient's back discomfort is a result of exacerbation of some of her chronic back problems or whether it could represent back pain related to COVID. Either way the patient is insistent on going home she wants some pain medicine and some steroids which is the regimen she was treated with before and she did well. 09/29/22 18:07 I wish to make certain that it is clear that this patient was offered admission. Patient is quite adamant that she wants to go home. It appears that most of her pain is due to compression fracture new of L2, endplate deformities of T11, and a suspected fracture of the left sacrum. - Departure Departure Disposition: Home Clinical Impression: Compression fx, lumbar spine, COVID Condition: Stable Critical Care Time: No Referrals: KAT JARA VETERINARY PHYSIOLOGIST [Primary Care Provider] - Follow up/PCP as directed Instructions: Low Back Pain (DC) Prescriptions: Hydrocodone/Acetaminophen [Hydrocodone-Acetamin 5-325 mg] 1 tab PO Q6HPRN PRN 3 Days #12 tablet MDD 4 PRN Reason: Pain Prednisone 5 mg [Deltasone 5 mg] 10 mg PO BID 6 Days #12 tablet ondansetron HCL [Zofran] 4 mg PO Q8H 7 Days #21 tablet
[2022-09-29] MEDS ORDERED: Hydromorphone 1 mg/ml Injection IM ONE (17:54)
[2022-09-29] MEDS ORDERED: ZOFRAN ODT 4 MG PO ONE (17:55)
[2022-09-29] MEDS ORDERED: ZOFRAN ODT 4 MG ONE (18:07)
[2022-09-29] MEDS ORDERED: Hydromorphone 1 mg/ml Injection ONE (18:07)
[2022-09-29 18:09] VITALS: BP 181/95; PULSE 70
--- NOTE | 2022-09-29 19:48 | XRAY ---
Indication: New onset low back pain. No known injury. Multiple contiguous axial images obtained through the lumbar spine. Sagittal and coronal reformatted images obtained. Comparison: May 05, 2022 Again age-related osteopenia, multilevel broadbase degenerative disc disease again greatest at L4-S1 levels, and L4 kyphoplasty. Progressive worsening L1 compression fracture with now near-complete collapse now encroaching on the spinal canal and T12-L1 foramina. New nondisplaced corner fracture left anterior sacrum adjacent to SI joint and also new incompletely visualized T11 fracture. No obvious large central disc herniation or canal stenosis. Again incidental bilateral L5 spondylolysis with grade 1-2 listhesis. Visualized noncontrasted soft tissues again demonstrates mild scattered aortoiliac calcifications. New small hiatal hernia. Impression: 1. New nondisplaced left sacral fracture and incompletely visualized T11 fracture. 2. Progressive worsening L1 compression fracture with spinal canal and foraminal encroachment as detailed. 3. New small hiatal hernia. 4. Stable chronic findings including osteopenia, multilevel degenerative spondylosis, bilateral L5 spondylolysis with grade 1-2 listhesis, and arteriosclerotic disease. Comment: Preliminary interpretation made by [facility] [[email or web address]]. No critical discrepancy.
[2022-09-30] MEDS ORDERED: DELTASONE 20 MG PO ONE (16:30)
== END 2022-09-29 18:31 | disposition home or self-care (01) ==
LOC: ED 16:00
DX: S32.020A Wedge compression fracture of second lumbar vertebra, initial encounter for closed fracture (principal); X50.0XXA Overexertion from strenuous movement or load, initial encounter; Y93.E9 Activity, other interior property and clothing maintenance; U07.1 COVID-19; M54.50 Low back pain, unspecified; I10 Essential (primary) hypertension; E78.5 Hyperlipidemia, unspecified; Z79.891 Long term (current) use of opiate analgesic; Z79.52 Long term (current) use of systemic steroids; Z79.899 Other long term (current) drug therapy
CPT/HCPCS: 0241U; 72131; 81015; 87086; 96372; 99284; J1170; Q0162; A9270-GY

== ENCOUNTER 2022-10-02 03:44 | Emergency (ER) | payer MEDICARE, OTHER ==
[2022-10-02] MEDS ORDERED: TYLENOL EXTRA STRENGTH 500 MG PO STA (04:09)
[2022-10-02 04:11] VITALS: BP 166/90; PULSE 82; O2SAT 93
[2022-10-02] MEDS ORDERED: TYLENOL EXTRA STRENGTH 500 MG ONE (04:15)
[2022-10-02] MEDS ORDERED: NORCO 5/325 MG PO ONE (04:37)
[2022-10-02] MEDS ORDERED: NORCO 5/325 MG ONE (04:43)
--- NOTE | 2022-10-02 04:45 | ERPHSYRPT ---
- History of Present Illness Time Seen by Provider: 10/02/22 04:07 Source: patient Exam Limitations: no limitations Patient Subjective Stated Complaint: pt states she is having lower back pain, since 09/28/22. she was here on 09/29/22 and was given medications but she has ran out of them. states she hasnt lifted anything or pulled anything Triage Nursing Assessment: pt brought to room via wheelchair, was able to transfer to bed SBA. pt is A&O x 3. complaint of lower back pain 07/08. pt drove herself here, states she lives alone. Physician History: 82 years old female presented today in the ER with chief complaint of low back pain for the last 4 days. Patient apparently was lifting some [employer] tree boxes and started to have pain in the low back. She was evaluated in the ER the next day and had a CT done with nondisplaced sacral fracture, does have chronic compression fracture of L1. She does not have any numbness tingling or weakness of lower extremities. She was also positive for COVID-19 and was given pain medication as she did not wanted to stay in the hospital. She is done with her pain medication but still having a lot of pain and cannot sleep as she ran out of pain medicine this evening. She denies a fall or trauma. Timing/Duration: day(s) (4), gradual onset, worse Method of Injury: unknown Quality: sharp, throbbing Back Pain Location: lumbar spine, coccyx, paraspinous muscles Severity of Pain-Max: severe Severity of Pain-Current: severe Modifying Factors: Improves With: pain medication. Worsens With: movement Associated Symptoms: lower back pain, muscle spasms, No fever, No sweating, No urinary incontinence, No loss of bowel control, No nausea, No vomiting, No problems urinating, No numbness in legs/feet, No weakness, No sensory/motor loss, No tingling in legs/feet Previous symptoms: same symptoms as today Allergies/Adverse Reactions: No Known Drug Allergies Allergy (Verified 10/03/22 02:23) Home Medications: Alendronate Sodium 70 mg [Fosamax 70 MG] 70 mg PO WEEKLY 01/04/19 [History] Enalapril Maleate 10 mg [Vasotec 10 MG] 10 mg PO BID 01/04/19 [History] Carvedilol [Coreg ] 6.25 mg PO BID 05/05/22 [History] Pravastatin Sodium 40 mg PO EVENING MEAL 05/05/22 [History] Amlodipine Besylate [Norvasc] 5 mg PO BID 09/29/22 [History] Hx Tetanus, Diphtheria Vaccination/Date Given: No Hx Influenza Vaccination/Date Given: No Hx Pneumococcal Vaccination/Date Given: No Immunizations Up to Date: No Travel Risk - International Travel Have you traveled outside of the country in past 3 weeks: No - Coronavirus Screening Are you exhibiting any of the following symptoms?: No - Vaccine Status Have you recieved a Covid-19 vaccination: Yes Manager Voice: Moderna - Vaccination Dates Date of 2cond Vaccination (if applicable): November 28, 2020 - Review of Systems Constitutional: No Symptoms Ears, Nose, & Throat: No Symptoms Respiratory: No Symptoms Cardiac: No Symptoms Abdominal/Gastrointestinal: No Symptoms Genitourinary Symptoms: No Symptoms Musculoskeletal: Back Pain Skin: No Symptoms Neurological: No Symptoms Psychological: No Symptoms Endocrine: No Symptoms Hematologic/Lymphatic: No Symptoms Immunological/Allergic: No Symptoms - Past Medical History Pertinent Past Medical History: Yes Neurological History: No Pertinent History ENT History: No Pertinent History Cardiac History: High Cholesterol, Hypertension Respiratory History: No Pertinent History Endocrine Medical History: No Pertinent History Musculoskeletal History: Osteoarthritis, Osteoporosis GI Medical History: Hemorrhoids History: No Pertinent History Psycho-Social History: Anxiety, Depression Female Reproductive Disorders: No Pertinent History Other Medical History: States " depression because i found my daughter a week ago" - Past Surgical History Past Surgical History: Yes Neuro Surgical History: No Pertinent History Cardiac: No Pertinent History Respiratory: No Pertinent History Gastrointestinal: No Pertinent History Genitourinary: No Pertinent History Musculoskeletal: No Pertinent History Female Surgical History: Hysterectomy Other Surgical History: BACK SURGERY - Social History Smoking Status: Never smoker Exposure to second hand smoke: Yes Drug Use: none Patient Lives Alone: Yes - Nursing Vital Signs Nursing Vital Signs: Initial Vital Signs Pulse Rate 82 10/02/22 04:00 Blood Pressure 166/90 10/02/22 04:00 O2 Sat by Pulse Oximetry 93 L 10/02/22 04:00 Pain Scale Pain Intensity 6 - Physical Exam General Appearance: no apparent distress, alert Eye Exam: PERRL/EOMI Ears, Nose, Throat Exam: normal ENT inspection Neck Exam: normal inspection, supple, full range of motion Respiratory Exam: normal breath sounds, lungs clear Cardiovascular Exam: regular rate/rhythm, normal heart sounds Gastrointestinal Exam: soft, normal bowel sounds, No tenderness Back Exam: normal inspection, vertebral tenderness, decreased range of motion (Lower lumbar/sacral area), muscle spasm, point tenderness, No normal range of motion, No CVA tenderness Extremity Exam: normal inspection, normal range of motion, pelvis stable Neurologic Exam: alert, oriented x 3, cooperative, steel cutter II-XII nml as tested, sensation nml, No motor deficits Skin Exam: normal color SpO2 Interpretation: normal SpO2: 93 O2 Delivery: Room Air Ordered Tests: Medication Summary Discontinued Medications Generic Name Dose Route Start Last Admin Trade Name Kieran PRN Reason Stop Dose Admin Acetaminophen 1,000 mg 10/02/22 04:09 10/02/22 04:16 Acetaminophen 500 Mg Tablet PO 10/02/22 04:10 1,000 mg STAT STA Administration Acetaminophen Confirm 10/02/22 04:15 Acetaminophen 500 Mg Tablet Administered 10/02/22 04:16 Dose 1,000 mg .ROUTE .STK-MED ONE Hydrocodone Bitart/Acetaminophen 1 tab 10/02/22 04:37 10/02/22 04:43 Hydrocodone/Apap 5/325 1 Tab Tablet PO 10/02/22 04:38 1 tab SENT HOME W/ PATIENT ONE Administration Hydrocodone Bitart/Acetaminophen Confirm 10/02/22 04:43 Hydrocodone/Apap 5/325 1 Tab Tablet Administered 10/02/22 04:44 Dose 1 tab .ROUTE .STK-MED ONE - Progress Progress: improved, pain not gone completely Progress Note: 10/02/22 04:38 82-year-old is evaluated for low back pain for the last 4 to 5 days after she tried to lift something. She was evaluated the next day and here and had a nondisplaced sacral fracture and also has old compression fracture L1 with no severe stenosis but what she has at her baseline from previous scan. She is moving lower extremities but has pain. Patient drove herself and does not want any narcotic pain medication. She is given Tylenol with some relief but still have pain. Negative neuro exam in lower extremity. I have given her 1 pill to go home and given a prescription of [place] to go home as well. She is advised to follow-up with Ortho/pain management for reevaluation and may need some injectables locally to control the pain. At this point I do not think she needs any other work-up or neuroimaging and can be discharged with outpatient follow- up. Counseled pt/family regarding: diagnosis, need for follow-up - Departure Departure Disposition: Home Clinical Impression: Low back pain Condition: Stable Critical Care Time: No Referrals: KAT JARA NP [Primary Care Provider] - Follow up/PCP as directed (Call today for appointment) Instructions: Low Back Pain (DC) Additional Instructions: Follow-up with primary care for reevaluation. Use cane/walker for ambulation to avoid a fall. Return to ER for excruciating back pain, numbness tingling weakness of lower extremities/loss of bowel or bladder control Prescriptions: Hydrocodone/Acetaminophen [Hydrocodone-Acetamin 5-325 mg] 1 tab PO Q6HPRN PRN 3 Days #12 tablet MDD 4 PRN Reason: Pain
== END 2022-10-02 04:50 | disposition home or self-care (01) ==
LOC: ED 03:44
DX: M54.50 Low back pain, unspecified (principal); E78.5 Hyperlipidemia, unspecified; I10 Essential (primary) hypertension; Z79.891 Long term (current) use of opiate analgesic; Z79.899 Other long term (current) drug therapy
CPT/HCPCS: 99281; A9270-GY

== ENCOUNTER 2022-10-03 02:21 | Inpatient (IN) | payer MEDICARE, OTHER ==
--- NOTE | 2022-10-03 02:43 | ERPHSYRPT ---
- History of Present Illness Time Seen by Provider: 10/03/22 02:30 Source: patient, EMS Exam Limitations: no limitations Patient Subjective Stated Complaint: Pt reports "My back is hurting and the medicine they gave me yesterday isn't helping." Triage Nursing Assessment: Pt transfered from EMS cot to ED cot by staff. Alert and oriented x3. No apparent respiratory distress. Skin W/D/P. No obvious deformities of low back. Intact ROM. Intact sensation. Physician History: This is an 82-year-old white female who has been to our emergency department 3 times in the last 5 days for complaints of lower back pain. This morning she was brought into the emergency department via ambulance service. Patient was given prescriptions for [place] 5/325 two different times and each time for 3 days as well as 6 days worth of prednisone. Patient was here in this emergency department 24 hours ago and was given the second round of the [place] medication. She states that that pain is not helping her. Patient has a history of anxiety and depression. Patient states that in the last 5 days she has never fallen or tripped or injured her back that way. She has a history of osteopenia and is taking Fosamax. She has history of hypertension and hyperlipidemia. A CT scan of the lumbar spine and pelvis reveals an old compression fracture of L1, T11 endplate deformity as well as a compression fracture of L2 and a possible sacral fracture. Patient is here primarily because the pain medicine that she last took at 9 PM on 10/02/2022 has not helped her much. She has not lost sensation in her legs. She has no loss of bowel or bladder control. Patient has thus far refused admission into the hospital. She does have an appointment to see her primary care provider, nurse nick French in 24 hours. On 09/29/2022, the patient's COVID status was positive. Timing/Duration: day(s) (5) Method of Injury: other (No injury) Quality: aching Back Pain Location: lumbar spine Back Pain Radiation: buttocks Severity of Pain-Max: moderate Severity of Pain-Current: moderate Modifying Factors: Improves With: movement Associated Symptoms: lower back pain, No urinary incontinence, No numbness in legs/feet, No sensory/motor loss, No tingling in legs/feet Previous symptoms: same symptoms as today, recently seen, recently treated Allergies/Adverse Reactions: No Known Drug Allergies Allergy (Verified 10/03/22 02:23) Home Medications: Alendronate Sodium 70 mg [Fosamax 70 MG] 70 mg PO WEEKLY 01/04/19 [History] Enalapril Maleate 10 mg [Vasotec 10 MG] 10 mg PO BID 01/04/19 [History] Carvedilol [Coreg ] 6.25 mg PO BID 05/05/22 [History] Pravastatin Sodium 40 mg PO DAILY 05/05/22 [History] Amlodipine Besylate [Norvasc] 5 mg PO BID 09/29/22 [History] Hx Tetanus, Diphtheria Vaccination/Date Given: No Hx Influenza Vaccination/Date Given: No Hx Pneumococcal Vaccination/Date Given: No Travel Risk - International Travel Have you traveled outside of the country in past 3 weeks: No - Coronavirus Screening Are you exhibiting any of the following symptoms?: Yes Symptoms: Vomiting/Diarrhea, Headaches/Body Aches/Fatigue Close contact with a COVID-19 positive Pt in past 14-21 Days: No - Vaccine Status Have you recieved a Covid-19 vaccination: Yes 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 - Vaccination Dates Date of 2cond Vaccination (if applicable): November 28, 2020 - Review of Systems Constitutional: No Symptoms Eyes: No Symptoms Ears, Nose, & Throat: No Symptoms Respiratory: No Symptoms Cardiac: No Symptoms Abdominal/Gastrointestinal: No Symptoms Genitourinary Symptoms: No Symptoms Musculoskeletal: Back Pain Skin: No Symptoms Neurological: No Symptoms Psychological: No Symptoms Endocrine: No Symptoms Hematologic/Lymphatic: Easy Bruising Immunological/Allergic: No Symptoms All Other Systems: Reviewed and Negative - Past Medical History Pertinent Past Medical History: Yes Neurological History: No Pertinent History ENT History: No Pertinent History Cardiac History: High Cholesterol, Hypertension Respiratory History: No Pertinent History Endocrine Medical History: No Pertinent History Musculoskeletal History: Osteoarthritis, Osteoporosis GI Medical History: Hemorrhoids History: No Pertinent History Psycho-Social History: Anxiety, Depression Female Reproductive Disorders: No Pertinent History Other Medical History: States " depression because i found my daughter a week ago" - Past Surgical History Past Surgical History: Yes Neuro Surgical History: No Pertinent History Cardiac: No Pertinent History Respiratory: No Pertinent History Gastrointestinal: No Pertinent History Genitourinary: No Pertinent History Musculoskeletal: No Pertinent History Female Surgical History: Hysterectomy Other Surgical History: BACK SURGERY - Social History Smoking Status: Never smoker Exposure to second hand smoke: No Drug Use: none Patient Lives Alone: Yes - Nursing Vital Signs Nursing Vital Signs: Initial Vital Signs Temperature 98.9 F 10/03/22 02:23 Pulse Rate 79 10/03/22 02:23 Respiratory Rate 17 10/03/22 02:23 Blood Pressure 178/90 10/03/22 02:23 O2 Sat by Pulse Oximetry 96 10/03/22 02:23 Pain Scale Pain Intensity [Lower Back] 10 Pain Intensity 10 - Physical Exam General Appearance: mild distress (To moderate distress), alert, anxiety, thin Eye Exam: PERRL/EOMI, post op pupil defect (L) Ears, Nose, Throat Exam: normal ENT inspection, moist mucous membranes Neck Exam: normal inspection, non-tender, supple, full range of motion Respiratory Exam: normal breath sounds, lungs clear, airway intact, No chest tenderness, No respiratory distress Cardiovascular Exam: regular rate/rhythm, normal heart sounds, normal peripheral pulses Gastrointestinal Exam: soft, normal bowel sounds, No tenderness Pelvic Exam: not done Rectal Exam: not done Back Exam: normal inspection, vertebral tenderness (Lumbar level), decreased range of motion Extremity Exam: normal inspection, normal range of motion, pelvis stable Peripheral Pulses: dorsalis-pedis (R): 3+, dorsalis-pedis (L): 3+ Neurologic Exam: alert, oriented x 3, cooperative, 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, normal mood/affect Skin Exam: normal color, warm, dry Lymphatic Exam: No adenopathy SpO2 Interpretation: normal SpO2: 96 O2 Delivery: Room Air Ordered Tests: Medication Summary Discontinued Medications Generic Name Dose Route Start Last Admin Trade Name Javyq PRN Reason Stop Dose Admin Methylprednisolone Sodium 0 mg 10/03/22 03:05 10/03/22 03:19 Succinate 125 mg/ Sterile IM 10/03/22 03:06 125 mg Water 2 ml STAT ONE Administration Hydromorphone HCl 0.5 mg 10/03/22 03:05 10/03/22 03:24 Hydromorphone 1 Mg/1ml Inj 1 Mg/Ml Syringe IM 10/03/22 03:06 0.5 mg STAT ONE Administration Hydromorphone HCl Confirm 10/03/22 03:11 Hydromorphone 1 Mg/1ml Inj 1 Mg/Ml Syringe Administered 10/03/22 03:12 Dose 1 mg .ROUTE .STK-MED ONE Methylprednisolone Sodium Succinate Confirm 10/03/22 03:11 Methylprednis Sod Succ 125 Mg/2 Ml Vial Administered 10/03/22 03:12 Dose 125 mg .ROUTE .STK-MED ONE Ondansetron HCl 4 mg 10/03/22 03:06 10/03/22 03:19 Zofran 4 Mg/Udtablet Orally Disintegrating PO 10/03/22 03:07 4 mg STAT ONE Administration Ondansetron HCl Confirm 10/03/22 03:11 Zofran 4 Mg/Udtablet Orally Disintegrating Administered 10/03/22 03:12 Dose 4 mg .ROUTE .STK-MED ONE Orphenadrine Citrate 60 mg 10/03/22 03:05 10/03/22 03:20 Orphenadrine Citrate 60 Mg/2 Ml Vial IM 10/03/22 03:06 60 mg STAT ONE Administration Orphenadrine Citrate Confirm 10/03/22 03:11 Orphenadrine Citrate 60 Mg/2 Ml Vial Administered 10/03/22 03:12 Dose 60 mg .ROUTE .STK-MED ONE Sterile Water Confirm 10/03/22 03:11 Water For Injection,Sterile 10 Ml Vial Administered 10/03/22 03:12 Dose 10 ml IJ .STK-MED ONE - Progress Progress: improved, pain not gone completely Progress Note: 10/03/22 02:41 Medical decision making: This patient has plenty of pain medication at home. It does not seem to be helping her much. She has appointment to see her primary care provider tomorrow morning. There does not appear to be any need for emergent surgery. She may require physical therapy and rehab as an outpatient at an extended care facility. We will provide her with injections of pain medication, muscle relaxant, and steroids. We will reassess her pain after she receives these medications here. During her stay in the emergency department the other 2 visits, she received oral steroids and oral pain medication. 10/03/22 02:58 Medical decision-making: This patient has lower back pain. The outpatient therapy that she is on is not helping. I reviewed the CAT scan of her lumbar spine which shows a nondisplaced sacral fracture. A worsening L1 compression fracture that is encroaching the spinal canal but is not compressing the cord. There is no obvious central disc herniation or canal stenosis. There is a T11 endplate deformity present. The patient does not have loss of bowel or bladder control. I did speak with Dr. Reyna, the hospitalist today for the hospital. The patient is COVID-positive and Dr. Reyna states that there is nothing different that he can do to help her pain than what she would be doing as an outpatient. Dr. Reyna declines admission/placement in observation. With a positive COVID test, I voiced my concern that she would likely not be able to be evaluated as an outpatient at her appointment tomorrow. My plan is to provide the patient with medication as stated above here in the emergency department and have her contact her primary care provider later today by phone to make arrangements for evaluation and possible admission to an extended care facility to arrange physical therapy. 10/03/22 03:02 Discussed with : Rad Counseled pt/family regarding: diagnosis, need for follow-up - Departure Departure Disposition: Home Clinical Impression: Lumbar compression fracture, Nondisplaced zone I fracture of sacrum Condition: Stable Critical Care Time: No Referrals: KAT FRENCH NP [Primary Care Provider] - Follow up/PCP as directed Additional Instructions: Continue the [place] pain medication as prescribed. Continue your steroid medication as prescribed. Fill the prescription for new medication which will help your pain as well. Call nurse practitioner Manolo this morning, 10/03/2022, and let them know you are COVID-positive. Also let them know that you have a compression fracture at the L1 level as well as a sacral fracture. Discussed with them options of physical therapy and possible rehab at extended-care facility on a short-term basis. Prescriptions: Orphenadrine Citrate 100 mg [Norflex 100 MG Tablet] 100 mg PO BID #10 tab
[2022-10-03] MEDS ORDERED: Hydromorphone 1 mg/ml Injection IM ONE ×3 (03:05→06:45)
[2022-10-03] MEDS ORDERED: Norflex 60 MG/2 ML IM ONE (03:05)
[2022-10-03] MEDS ORDERED: solu-MEDROL 125 MG, Sterile H2O 10 ml 2 ML IM ONE ×2 (03:05)
[2022-10-03] MEDS ORDERED: ZOFRAN ODT 4 MG PO ONE (03:06)
[2022-10-03] MEDS ORDERED: ZOFRAN ODT 4 MG ONE (03:11)
[2022-10-03] MEDS ORDERED: solu-MEDROL ONE (03:11)
[2022-10-03] MEDS ORDERED: Sterile H2O 10 ml IJ ONE (03:11)
[2022-10-03] MEDS ORDERED: Hydromorphone 1 mg/ml Injection ONE ×3 (03:11→07:01)
[2022-10-03] MEDS ORDERED: Norflex 60 MG/2 ML ONE (03:11)
[2022-10-03 07:49] LABS: INFLUENZA A NEGATIVE (NEGATIVE); INFLUENZA B NEGATIVE (NEGATIVE); RESPIRATORY SYNCTIAL VIRUS NEGATIVE (Negative); SARS-CoV-2 Xpert Express NEGATIVE (NEGATIVE)
[2022-10-03] MEDS ORDERED: DUONEB 0.5-3 MG/3 ml Neb IH PRN (09:13)
--- NOTE | 2022-10-03 10:50 | XRAY ---
Indication: shelter placement. Comparison: January 04, 2019 Portable chest again demonstrates COPD with tiny calcified granulomas. New small right effusion with adjacent minimal infiltrate/atelectasis. Heart not enlarged. Bony thorax intact with osteopenia, degenerative changes, and T8/L4 kyphoplasty. New recent CT proven L1 compression fracture.
[2022-10-03] MEDS: Hydromorphone 1 mg/ml Injection IV PRN ×3 (10:52→20:27)
[2022-10-03] MEDS: Zofran 4 MG/2 ML VIAL IV PRN ×2 (10:52→15:48)
[2022-10-03] MEDS: PROTONIX 40 MG IV IV SCH (10:52)
[2022-10-03 11:55] LABS: Hematocrit 43.2 % (35-47); Hemoglobin 14.6 g/dL (12.0-16.0); Mean Cell Volume 87.1 fL (78-100); Mean Corpuscular Hemoglobin 29.4 pg (26-32); Mean Corpuscular Hgb Concent. 33.8 g/dL (32-36); Platelet Count 306 x10^3/uL (150-450); Red Blood Count 4.96 x10^6/uL (4.1-5.4); Red Cell Distribution Width 11.9 % (11.5-14.0)
[2022-10-03 12:05] LABS: ALBUMIN 4.7 g/dL (3.5-5.0); ALKALINE PHOSPHATASE 87 U/L (38-126); ANION GAP 14.8 MEQ/L (5-15); BLOOD UREA NITROGEN 17 mg/dL (7-17); CHLORIDE 90 mmol/L (98-107); Calcium 9.1 mg/dL (8.4-10.2); Carbon Dioxide 24 mmol/L (22-30); Creatinine 1 0.51 mg/dL (0.52-1.04); EST GLOMERULAR FILTRATION RATE > 60.0 ML/MIN; Glucose 129 mg/dL (74-106); Potassium 3.7 mmol/L (3.5-5.1); SGOT/AST 34 U/L (14-36); SGPT/ALT 23 U/L (0-35); SODIUM 125 mmol/L (137-145)
[2022-10-03] MEDS ORDERED: Zofran 4 MG/2 ML VIAL IV PRN (16:21)
[2022-10-03] MEDS ORDERED: NON-FORMULARY ITEM (Pravastatin Sodium [Pravastatin Sodium] 20 MG Tablet) PO SCH (18:00)
[2022-10-03] MEDS: Cyclobenzaprine 10 MG PO PRN (18:09)
[2022-10-03] MEDS: ZOCOR 20MG PO SCH (18:09)
[2022-10-03] MEDS: Sodium Chloride 0.9% 1000 ML 1,000 ML IV SCH (18:10)
[2022-10-03 19:18] LABS: Appearance Clear (Clear); Bilirubin Negative (Negative); Blood Trace (Negative); Glucose Negative (Negative); Ketones 80 (Negative); Leukocyte Esterase Moderate (Negative); Nitrite Negative (Negative); Ph 5.5 (4.6-8.0); Protein,Urine Dip 30 (Negative); Specific Gravity 1.015 (1.005-1.030); Urobilinogen 0.2 mg/dL (0.2)
[2022-10-03 19:52] LABS: ADD URINE CULTURE? NO (NO); Bacteria None Seen /HPF (None Seen); Epithelial Cells Few /HPF (None Seen); RBC NONE SEEN /HPF (0-5); WBC NONE SEEN /HPF (0-5)
[2022-10-03] MEDS: Vasotec 10 MG PO SCH (21:33)
[2022-10-03] MEDS: NORVASC 5 MG PO SCH (21:33)
[2022-10-03] MEDS: Coreg PO SCH (21:33)
[2022-10-03] MEDS ORDERED: ENALAPRIL MALEATE 10 MG PO SCH (22:00)
[2022-10-03] MEDS ORDERED: NON-FORMULARY ITEM (Amlodipine Besylate [Norvasc] 2.5 MG Tablet) PO SCH (22:00)
[2022-10-03 23:08] LABS: TSH, 3RD Generation 1.23 mIU/L (0.47-4.68)
[2022-10-04] MEDS: Hydromorphone 1 mg/ml Injection IV PRN ×2 (00:25→07:09)
[2022-10-04] MEDS: Cyclobenzaprine 10 MG PO PRN (01:51)
[2022-10-04 06:11] LABS: Absolute Neutrophil Ct (ANC) 4.62 x10^3/uL (1.4-6.9); BASOPHIL % 0.3 % (0.0-0.4); Basophil (Absolute #) 0.02 x10^3/uL (0-0.4); Eosinophil (Absolute #) 0.07 x10^3/uL (0-0.5); Hematocrit 39.6 % (35-47); Hemoglobin 12.9 g/dL (12.0-16.0); IMMATURE GRAN # 0.04 x10^3u/L (0.00-0.03); IMMATURE GRAN % 0.6 % (0.00-0.4); Lymphocyte (Absolute #) 1.03 x10^3/uL (1.0-4.6); Mean Cell Volume 88.2 fL (78-100); Mean Corpuscular Hemoglobin 28.7 pg (26-32); Mean Corpuscular Hgb Concent. 32.6 g/dL (32-36); Mean Platelet Volume 10.1 fL (7.5-11.0); Neutrophil % 67.1 % (36.0-66.0); Platelet Count 266 x10^3/uL (150-450); Red Blood Count 4.49 x10^6/uL (4.1-5.4); White Blood Count 6.9 x10^3/uL (4.0-10.5)
[2022-10-04 06:45] LABS: ALBUMIN 3.6 g/dL (3.5-5.0); ALKALINE PHOSPHATASE 67 U/L (38-126); ANION GAP 5.7 MEQ/L (5-15); BLOOD UREA NITROGEN 20 mg/dL (7-17); CHLORIDE 95 mmol/L (98-107); Calcium 8.2 mg/dL (8.4-10.2); Carbon Dioxide 31 mmol/L (22-30); EST GLOMERULAR FILTRATION RATE > 60.0 ML/MIN; Glucose 104 mg/dL (74-106); SGOT/AST 25 U/L (14-36); SGPT/ALT 16 U/L (0-35); SODIUM 128 mmol/L (137-145); Total Protein 6.3 g/dL (6.3-8.2)
[2022-10-04] MEDS: Sodium Chloride 0.9% 1000 ML 1,000 ML IV SCH ×2 (07:09→18:54)
--- NOTE | 2022-10-04 07:41 | PCM.HP ---
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 States she lifted a cedar chest lid 6 days ago putting away [employer] things when back pain started. CT lumbar spine shows new nondisplaced left sacral fracture and incompletely visualized T11 fracture and progressive worsening L1 compression fracture with spinal canal and foraminal encroachment . I spoke to Neurosurgeon Dr Coyle at [facility] who does Kyphoplasty and he states ptn will need back brace and if this fails after 6 weeks then possible Kyphoplasty. PMHx includes HTN,HLD,Arthritis,Osteoporosis,depression,anxiety.Patient is admitted for pain control ,brace and PT . - Review of Systems Constitutional: No Symptoms Eyes: No Symptoms Ears, Nose, & Throat: No Symptoms Respiratory: No Symptoms Cardiac: No Symptoms Abdominal/Gastrointestinal: No Symptoms Genitourinary Symptoms: No Symptoms Musculoskeletal: Back Pain, Injury Skin: No Symptoms Neurological: No Symptoms Psychological: Anxiety, Depression Endocrine: No Symptoms Hematologic/Lymphatic: No Symptoms Medications & Allergies Home Medications: Home Medication List Alendronate Sodium 70 mg [Fosamax 70 MG] 70 mg PO WEEKLY 01/04/19 [History Confirmed 10/03/22] Enalapril Maleate 10 mg [Vasotec 10 MG] 10 mg PO BID 01/04/19 [History Confirmed 10/03/22] Carvedilol [Coreg ] 6.25 mg PO BID 05/05/22 [History Confirmed 10/03/22] Pravastatin Sodium 40 mg PO EVENING MEAL 05/05/22 [History Confirmed 10/03/22] Amlodipine Besylate [Norvasc] 5 mg PO BID 09/29/22 [History Confirmed 10/03/22] Hydrocodone/Acetaminophen [Hydrocodone-Acetamin 5-325 mg] 1 tab PO Q6HPRN PRN 3 Days #12 tablet MDD 4 10/02/22 [Rx Confirmed 10/03/22] Orphenadrine Citrate 100 mg [Norflex 100 MG Tablet] 100 mg PO BID #10 tab 10/03/22 [Rx] Allergies/Adverse Reactions: Allergies Allergy/AdvReac Type Severity Reaction Status Date / Time No Known Drug Allergies Allergy Verified 10/03/22 02:23 - Past Medical History Past Medical History: Yes Neurological History: No Pertinent History ENT History: No Pertinent History Cardiac History: High Cholesterol, Hypertension Respiratory History: No Pertinent History Endocrine Medical History: No Pertinent History Musculoskelatal History: Fractures, Osteoarthritis, Osteoporosis GI Medical History: Hemorrhoids History: No Pertinent History Pyscho-Social History: Anxiety, Depression Reproductive Disorders: No Pertinent History Comment: States " depression because i found my daughter a week ago" - Female History Are you now?: No - Past Surgical History Past Surgical History: Yes Neuro Surgical History: No Pertinent History Cardiac History: No Pertinent History Respiratory Surgery: No Pertinent History GI Surgical History: Appendectomy Genitourinary Surgical Hx: No Pertinent History Musculskeletal Surgical Hx: No Pertinent History Female Surgical History: Hysterectomy Other Surgical History: BACK SURGERY 2015 - Social History Smoking Status: Never smoker Exposure to second hand smoke: No Alcohol: None Drug Use: none - Physical Exam Vital Signs: Vital Signs - 24 hr Temp Pulse Resp BP Pulse Ox 10/04/22 04:00 98.7 F 71 17 153/65 95 10/04/22 00:00 97.1 F 76 16 134/77 95 10/03/22 20:00 98.0 F 80 16 130/83 95 10/03/22 15:40 98.0 F 84 16 182/82 93 L 10/03/22 12:54 91 H 18 96 10/03/22 11:46 98.2 F 81 16 166/79 96 10/03/22 09:33 98.0 F 75 18 170/80 94 L 10/03/22 09:26 98.0 F 75 18 170/80 10/03/22 08:23 95 H 18 166/106 96 General Appearance: mild distress (LBP radiating to flank(fron L1 compressionfx)) Neurologic Exam: alert, oriented x 3, cooperative, sensation nml Eye Exam: eyes nml inspection Ears, Nose, Throat Exam: normal ENT inspection Neck Exam: normal inspection Respiratory Exam: normal breath sounds Cardiovascular Exam: regular rate/rhythm Gastrointestinal/Abdomen Exam: soft, No tenderness Pelvic Exam: not done Rectal Exam: not done Back Exam: vertebral tenderness (low thoracic to lumbar), muscle spasm Extremity Exam: normal inspection Results - Labs Lab/Micro Results: Lab Results-Last 24 Hours 10/03/22 10/03/22 10/03/22 Range/Units 07:00 11:42 11:42 WBC 7.0 (4.0-10.5) x10^3/uL RBC 4.96 (4.1-5.4) x10^6/uL Hgb 14.6 (12.0-16.0) g/dL Hct 43.2 (35-47) % MCV 87.1 (78-100) fL MCH 29.4 (26-32) pg MCHC 33.8 (32-36) g/dL RDW 11.9 (11.5-14.0) % Plt Count 306 (150-450) x10^3/uL MPV 10.0 (7.5-11.0) fL Gran % (36.0-66.0) % Immature Gran % (Auto) (0.00-0.4) % Nucleat RBC Rel Count (0.00-0.1) % Eos # (Auto) (0-0.5) x10^3/uL Immature Gran # (Auto) (0.00-0.03) x10^3u/L Absolute Lymphs (auto) (1.0-4.6) x10^3/uL Absolute Monos (auto) (0.0-1.3) x10^3/uL Absolute Nucleated RBC (0.00-0.01) x10^3u/L Lymphocytes % (24.0-44.0) % Monocytes % (0.0-12.0) % Eosinophils % (0.00-5.0) % Basophils % (0.0-0.4) % Absolute Granulocytes (1.4-6.9) x10^3/uL Basophils # (0-0.4) x10^3/uL Sodium 125 L (137-145) mmol/L Potassium 3.7 (3.5-5.1) mmol/L Chloride 90 L (98-107) mmol/L Carbon Dioxide 24 (22-30) mmol/L Anion Gap 14.8 (5-15) MEQ/L BUN 17 (7-17) mg/dL Creatinine 0.51 L (0.52-1.04) mg/dL Estimated GFR > 60.0 ML/MIN Glucose 129 H (74-106) mg/dL Calcium 9.1 (8.4-10.2) mg/dL Total Bilirubin 1.00 (0.2-1.3) mg/dL AST 34 (14-36) U/L ALT 23 (0-35) U/L Alkaline Phosphatase 87 (38-126) U/L NT-Pro-B Natriuret Pep (0-1800) pg/mL Serum Total Protein 8.0 (6.3-8.2) g/dL Albumin 4.7 (3.5-5.0) g/dL Vitamin B12 (239-931) pg/mL TSH 3rd Generation (0.47-4.68) mIU/L Urine Color (Yellow) Urine Appearance (Clear) Urine pH (4.6-8.0) Ur Specific Fence (1.005-1.030) Urine Protein (Negative) Urine Ketones (Negative) Urine Blood (Negative) Urine Nitrite (Negative) Urine Bilirubin (Negative) Urine Urobilinogen (0.2) mg/dL Ur Leukocyte Esterase (Negative) Urine Microscopic RBC (0-5) /HPF Urine Microscopic WBC (0-5) /HPF Ur Epithelial Cells (None Seen) /HPF Urine Bacteria (None Seen) /HPF Urine Culture Reflexed (NO) Urine Glucose (Negative) mg/dL Influenza Type A Ag NEGATIVE (NEGATIVE) Influenza Type B Ag NEGATIVE (NEGATIVE) RSV (PCR) NEGATIVE (Negative) SARS-CoV-2 (PCR) NEGATIVE (NEGATIVE) 10/03/22 10/03/22 10/03/22 Range/Units 16:19 Unknown Unknown WBC (4.0-10.5) x10^3/uL RBC (4.1-5.4) x10^6/uL Hgb (12.0-16.0) g/dL Hct (35-47) % MCV (78-100) fL MCH (26-32) pg MCHC (32-36) g/dL RDW (11.5-14.0) % Plt Count (150-450) x10^3/uL MPV (7.5-11.0) fL Gran % (36.0-66.0) % Immature Gran % (Auto) (0.00-0.4) % Nucleat RBC Rel Count (0.00-0.1) % Eos # (Auto) (0-0.5) x10^3/uL Immature Gran # (Auto) (0.00-0.03) x10^3u/L Absolute Lymphs (auto) (1.0-4.6) x10^3/uL Absolute Monos (auto) (0.0-1.3) x10^3/uL Absolute Nucleated RBC (0.00-0.01) x10^3u/L Lymphocytes % (24.0-44.0) % Monocytes % (0.0-12.0) % Eosinophils % (0.00-5.0) % Basophils % (0.0-0.4) % Absolute Granulocytes (1.4-6.9) x10^3/uL Basophils # (0-0.4) x10^3/uL Sodium (137-145) mmol/L Potassium (3.5-5.1) mmol/L Chloride (98-107) mmol/L Carbon Dioxide (22-30) mmol/L Anion Gap (5-15) MEQ/L BUN (7-17) mg/dL Creatinine (0.52-1.04) mg/dL Estimated GFR ML/MIN Glucose (74-106) mg/dL Calcium (8.4-10.2) mg/dL Total Bilirubin (0.2-1.3) mg/dL AST (14-36) U/L ALT (0-35) U/L Alkaline Phosphatase (38-126) U/L NT-Pro-B Natriuret Pep 599 (0-1800) pg/mL Serum Total Protein (6.3-8.2) g/dL Albumin (3.5-5.0) g/dL Vitamin B12 955 H (239-931) pg/mL TSH 3rd Generation 1.230 (0.47-4.68) mIU/L Urine Color Yellow (Yellow) Urine Appearance Clear (Clear) Urine pH 5.5 (4.6-8.0) Ur Specific Fence 1.015 (1.005-1.030) Urine Protein 30 (Negative) Urine Ketones 80 A (Negative) Urine Blood Trace (Negative) Urine Nitrite Negative (Negative) Urine Bilirubin Negative (Negative) Urine Urobilinogen 0.2 (0.2) mg/dL Ur Leukocyte Esterase Moderate A (Negative) Urine Microscopic RBC NONE SEEN (0-5) /HPF Urine Microscopic WBC NONE SEEN (0-5) /HPF Ur Epithelial Cells Few (None Seen) /HPF Urine Bacteria None Seen (None Seen) /HPF Urine Culture Reflexed NO (NO) Urine Glucose Negative (Negative) mg/dL Influenza Type A Ag (NEGATIVE) Influenza Type B Ag (NEGATIVE) RSV (PCR) (Negative) SARS-CoV-2 (PCR) (NEGATIVE) 10/04/22 10/04/22 Range/Units 05:30 05:30 WBC 6.9 (4.0-10.5) x10^3/uL RBC 4.49 (4.1-5.4) x10^6/uL Hgb 12.9 (12.0-16.0) g/dL Hct 39.6 (35-47) % MCV 88.2 (78-100) fL MCH 28.7 (26-32) pg MCHC 32.6 (32-36) g/dL RDW 12.0 (11.5-14.0) % Plt Count 266 (150-450) x10^3/uL MPV 10.1 (7.5-11.0) fL Gran % 67.1 H (36.0-66.0) % Immature Gran % (Auto) 0.6 H (0.00-0.4) % Nucleat RBC Rel Count 0.0 (0.00-0.1) % Eos # (Auto) 0.07 (0-0.5) x10^3/uL Immature Gran # (Auto) 0.04 H (0.00-0.03) x10^3u/L Absolute Lymphs (auto) 1.03 (1.0-4.6) x10^3/uL Absolute Monos (auto) 1.10 (0.0-1.3) x10^3/uL Absolute Nucleated RBC 0.00 (0.00-0.01) x10^3u/L Lymphocytes % 15.0 L (24.0-44.0) % Monocytes % 16.0 H (0.0-12.0) % Eosinophils % 1.0 (0.00-5.0) % Basophils % 0.3 (0.0-0.4) % Absolute Granulocytes 4.62 (1.4-6.9) x10^3/uL Basophils # 0.02 (0-0.4) x10^3/uL Sodium 128 L (137-145) mmol/L Potassium 4.0 (3.5-5.1) mmol/L Chloride 95 L (98-107) mmol/L Carbon Dioxide 31 H (22-30) mmol/L Anion Gap 5.7 (5-15) MEQ/L BUN 20 H (7-17) mg/dL Creatinine 0.60 (0.52-1.04) mg/dL Estimated GFR > 60.0 ML/MIN Glucose 104 (74-106) mg/dL Calcium 8.2 L (8.4-10.2) mg/dL Total Bilirubin 0.70 (0.2-1.3) mg/dL AST 25 (14-36) U/L ALT 16 (0-35) U/L Alkaline Phosphatase 67 (38-126) U/L NT-Pro-B Natriuret Pep (0-1800) pg/mL Serum Total Protein 6.3 (6.3-8.2) g/dL Albumin 3.6 (3.5-5.0) g/dL Vitamin B12 (239-931) pg/mL TSH 3rd Generation (0.47-4.68) mIU/L Urine Color (Yellow) Urine Appearance (Clear) Urine pH (4.6-8.0) Ur Specific Fence (1.005-1.030) Urine Protein (Negative) Urine Ketones (Negative) Urine Blood (Negative) Urine Nitrite (Negative) Urine Bilirubin (Negative) Urine Urobilinogen (0.2) mg/dL Ur Leukocyte Esterase (Negative) Urine Microscopic RBC (0-5) /HPF Urine Microscopic WBC (0-5) /HPF Ur Epithelial Cells (None Seen) /HPF Urine Bacteria (None Seen) /HPF Urine Culture Reflexed (NO) Urine Glucose (Negative) mg/dL Influenza Type A Ag (NEGATIVE) Influenza Type B Ag (NEGATIVE) RSV (PCR) (Negative) SARS-CoV-2 (PCR) (NEGATIVE) - Radiology Impressions Radiology Exams & Impressions: Radiology Procedures Category Date Time Status CHEST 1 VIEW (PORTABLE) Urgent Exams 10/03/22 10:07 Completed Assessment/Plan (1) Compression fx, lumbar spine Current Visit: Yes Status: Acute Qualifiers: Lumbar vertebra fracture level: L1 Assessment & Plan: Lumbar brace (2) Nondisplaced zone I fracture of sacrum Current Visit: Yes Status: Acute Qualifiers: Encounter type: subsequent encounter Code(s): S32.110A - NONDISPLACED ZONE I FRACTURE OF SACRUM, INIT FOR CLOS FX (3) Osteoporosis Current Visit: Yes Status: Chronic Assessment & Plan: currently on Fosamax, Vitamin D= Aug Code(s): M81.0 - AGE-RELATED OSTEOPOROSIS W/O CURRENT PATHOLOGICAL FRACTURE (4) Intractable back pain Current Visit: Yes Status: Acute Code(s): M54.9 - DORSALGIA, UNSPECIFIED
[2022-10-04] MEDS: DILAUDID 1 MG/1ML PCA SYRINGE IV PRN (07:51)
[2022-10-04] MEDS: PROTONIX 40 MG IV IV SCH (09:29)
[2022-10-04] MEDS: Vasotec 10 MG PO SCH ×2 (09:29→21:55)
[2022-10-04] MEDS: Coreg PO SCH ×2 (09:29→21:55)
[2022-10-04] MEDS: NEURONTIN PO SCH ×3 (09:29→21:55)
[2022-10-04] MEDS: NORVASC 5 MG PO SCH ×2 (09:29→21:55)
[2022-10-04] MEDS: Lidoderm Patch 5% TOP SCH (16:22)
[2022-10-04] MEDS: ZOCOR 20MG PO SCH (18:22)
[2022-10-05] MEDS: Sodium Chloride 0.9% 1000 ML 1,000 ML IV SCH ×2 (08:26→21:01)
[2022-10-05] MEDS: Coreg PO SCH ×2 (09:27→21:01)
[2022-10-05] MEDS: NORVASC 5 MG PO SCH ×2 (09:27→21:01)
[2022-10-05] MEDS: NEURONTIN PO SCH ×3 (09:27→21:01)
[2022-10-05] MEDS: Vasotec 10 MG PO SCH ×2 (09:27→21:01)
[2022-10-05] MEDS: Lidoderm Patch 5% TOP SCH (09:27)
[2022-10-05] MEDS: PROTONIX 40 MG IV IV SCH (09:27)
[2022-10-05] MEDS: ZOCOR 20MG PO SCH (17:42)
[2022-10-05] MEDS ORDERED: Robitussin 100 MG/5 ML PO PRN (17:55)
[2022-10-05] MEDS: Zithromax 250 MG TABLET PO SCH (18:10)
[2022-10-05] MEDS: Cyclobenzaprine 10 MG PO PRN (21:01)
[2022-10-05] MEDS ORDERED: OXYCODONE-ACETAMINOPHEN 10-325 PO PRN (21:08)
[2022-10-05] MEDS ORDERED: Duragesic 50MCG Patch TD SCH (21:15)
[2022-10-05] MEDS: DILAUDID 1 MG/1ML PCA SYRINGE IV PRN (21:44)
[2022-10-06] MEDS ORDERED: Fosamax 70 MG PO SCH (06:00)
[2022-10-06] MEDS: DILAUDID 1 MG/1ML PCA SYRINGE IV PRN (06:20)
[2022-10-06 06:27] LABS: Hematocrit 34.6 % (35-47); Hemoglobin 11.1 g/dL (12.0-16.0); Mean Cell Volume 90.6 fL (78-100); Mean Corpuscular Hemoglobin 29.1 pg (26-32); Mean Corpuscular Hgb Concent. 32.1 g/dL (32-36); Mean Platelet Volume 10.5 fL (7.5-11.0); Platelet Count 208 x10^3/uL (150-450); Red Blood Count 3.82 x10^6/uL (4.1-5.4); Red Cell Distribution Width 12.2 % (11.5-14.0); White Blood Count 6.8 x10^3/uL (4.0-10.5)
[2022-10-06 06:54] LABS: ANION GAP 3.2 MEQ/L (5-15); BLOOD UREA NITROGEN 13 mg/dL (7-17); CHLORIDE 102 mmol/L (98-107); Calcium 7.2 mg/dL (8.4-10.2); Carbon Dioxide 27 mmol/L (22-30); Creatinine 1 0.47 mg/dL (0.52-1.04); EST GLOMERULAR FILTRATION RATE > 60.0 ML/MIN; Glucose 104 mg/dL (74-106); Potassium 3.3 mmol/L (3.5-5.1); SODIUM 129 mmol/L (137-145)
[2022-10-06] MEDS: Sodium Chloride 0.9% 1000 ML 1,000 ML IV SCH ×2 (09:51→21:17)
[2022-10-06] MEDS: Vasotec 10 MG PO SCH ×2 (09:52→21:03)
[2022-10-06] MEDS: Coreg PO SCH ×2 (09:52→21:02)
[2022-10-06] MEDS: PROTONIX 40 MG IV IV SCH (09:52)
[2022-10-06] MEDS: Zithromax 250 MG TABLET PO SCH (09:52)
[2022-10-06] MEDS: NEURONTIN PO SCH ×3 (09:52→21:02)
[2022-10-06] MEDS: Lidoderm Patch 5% TOP SCH (09:53)
[2022-10-06] MEDS: NORVASC 5 MG PO SCH ×2 (09:57→21:03)
[2022-10-06] MEDS ORDERED: Duragesic 50MCG Patch TOP ONE (11:30)
[2022-10-06] MEDS: OXYCODONE-ACETAMINOPHEN 10-325 PO PRN ×2 (11:41→18:19)
[2022-10-06] MEDS: Cyclobenzaprine 10 MG PO PRN ×2 (11:41→21:09)
[2022-10-06] MEDS: Klor Con PO SCH ×4 (11:41→18:19)
[2022-10-06] MEDS: ZOCOR 20MG PO SCH (18:19)
[2022-10-07] MEDS: Sodium Chloride 0.9% 1000 ML 1,000 ML IV SCH (04:33)
[2022-10-07 05:30] LABS: Hematocrit 34.6 % (35-47); Hemoglobin 11.3 g/dL (12.0-16.0); Mean Cell Volume 89.2 fL (78-100); Mean Corpuscular Hemoglobin 29.1 pg (26-32); Mean Corpuscular Hgb Concent. 32.7 g/dL (32-36); Mean Platelet Volume 10.5 fL (7.5-11.0); Platelet Count 222 x10^3/uL (150-450); Red Blood Count 3.88 x10^6/uL (4.1-5.4); Red Cell Distribution Width 12.5 % (11.5-14.0); White Blood Count 9.6 x10^3/uL (4.0-10.5)
[2022-10-07] MEDS: OXYCODONE-ACETAMINOPHEN 10-325 PO PRN ×3 (05:44→22:41)
[2022-10-07 06:14] LABS: ANION GAP 4.8 MEQ/L (5-15); BLOOD UREA NITROGEN 11 mg/dL (7-17); CHLORIDE 101 mmol/L (98-107); Calcium 7.5 mg/dL (8.4-10.2); Carbon Dioxide 28 mmol/L (22-30); EST GLOMERULAR FILTRATION RATE > 60.0 ML/MIN; Glucose 117 mg/dL (74-106); MAGNESIUM 1.6 mg/dL (1.6-2.3); Potassium 4.1 mmol/L (3.5-5.1); SODIUM 130 mmol/L (137-145)
[2022-10-07] MEDS ORDERED: NEURONTIN PO SCH (07:15)
[2022-10-07] MEDS: Neurontin PO SCH ×4 (08:12→23:34)
[2022-10-07] MEDS: Lidoderm Patch 5% TOP SCH (08:12)
[2022-10-07] MEDS: Vasotec 10 MG PO SCH ×2 (08:13→22:41)
[2022-10-07] MEDS: NORVASC 5 MG PO SCH ×2 (08:13→22:41)
[2022-10-07] MEDS: PROTONIX 40 MG IV IV SCH (08:13)
[2022-10-07] MEDS: Coreg PO SCH ×2 (08:13→22:41)
[2022-10-07] MEDS: Zithromax 250 MG TABLET PO SCH (08:13)
[2022-10-07] MEDS ORDERED: Neurontin PO SCH (10:00)
[2022-10-07] MEDS: ENOXAPARIN SODIUM SQ SCH (11:11)
--- NOTE | 2022-10-07 14:05 | XRAY ---
Indication: Cough. Hypoxemia. Comparison: October 03, 2022 Portable chest now demonstrates borderline cardiomegaly with increasing small right and new tiny left effusions concerning for cardiac decompensation versus fluid overload. Worsening right mid to lower lung infiltrates/atelectasis. Stable COPD and old granulomatous disease.
[2022-10-07] MEDS: PIPERACILLIN/TAZOBACTAM 4.5 GM in Sodium Chloride 100ML MINI-BAG PLUS 100 ML IV SCH ×2 (16:07→23:33)
--- NOTE | 2022-10-07 17:12 | PCM.NOTE ---
Date and Time: 10/07/22 1706 Subjective Assessment: Patient states feeling weak ,lungs with coarse BS right mid lung. Is heavily sedated to control back pain. Is on Zithromax and will change to Zosyn. Will stop [employer] pump and patch that was started over the weekend . Will continue prn percocet and gabapentin. Objective Exam General Appearance: lethargy (alert when spoken to then falls to sleep ,is comfortable partially reclined in bed) Skin Exam: normal color, warm, dry Respiratory Exam: rhonchi (right mid) Cardiovascular Exam: regular rate/rhythm Gastrointestinal/Abdomen Exam: soft (nontender) Extremity Exam: normal inspection OBJECTIVE DATA Vital Signs: Vital Signs - 24 hr Temp Pulse Resp BP Pulse Ox 10/07/22 16:00 100.2 F 81 16 115/74 91 L 10/07/22 12:00 98.2 F 72 16 120/60 93 L 10/07/22 07:51 16 93 L 10/07/22 07:16 98.4 F 80 14 142/70 93 L 10/07/22 07:05 93 L 10/07/22 05:41 20 93 L 10/07/22 04:00 97.9 F 83 16 134/63 94 L 10/07/22 03:30 16 92 L 10/07/22 00:00 97.7 F 83 16 134/64 93 L 10/06/22 23:30 20 92 L 10/06/22 22:20 20 93 L 10/06/22 19:51 98.0 F 84 16 108/53 89 L 10/06/22 19:30 16 92 L 10/06/22 19:19 92 L 10/06/22 18:20 19 97 Pain Assessment - Last Documented Pain Intensity [Lower Back] 10 Pain Intensity 9 Pain Scale Used [facility] Intake and Output: Intake & Output 10/05/22 10/06/22 10/07/22 10/08/22 11:59 11:59 11:59 11:59 Intake Total 2849 2442 2584 240 Output Total 900 2000 1000 Balance 2849 1542 584 -423 Weight 46.1 kg 46.1 kg 43.8 kg Lab Results: Lab Results-Last 24 Hours 10/06/22 10/07/22 10/07/22 Range/Units 20:47 05:02 05:02 WBC 9.6 (4.0-10.5) x10^3/uL RBC 3.88 L (4.1-5.4) x10^6/uL Hgb 11.3 L (12.0-16.0) g/dL Hct 34.6 L (35-47) % MCV 89.2 (78-100) fL MCH 29.1 (26-32) pg MCHC 32.7 (32-36) g/dL RDW 12.5 (11.5-14.0) % Plt Count 222 (150-450) x10^3/uL MPV 10.5 (7.5-11.0) fL Sodium 130 L (137-145) mmol/L Potassium 4.1 4.1 (3.5-5.1) mmol/L Chloride 101 (98-107) mmol/L Carbon Dioxide 28 (22-30) mmol/L Anion Gap 4.8 L (5-15) MEQ/L BUN 11 (7-17) mg/dL Creatinine 0.40 L (0.52-1.04) mg/dL Estimated GFR > 60.0 ML/MIN Glucose 117 H (74-106) mg/dL Calcium 7.5 L (8.4-10.2) mg/dL Magnesium 1.6 (1.6-2.3) mg/dL NT-Pro-B Natriuret Pep (0-1800) pg/mL 10/07/22 Range/Units 05:02 WBC (4.0-10.5) x10^3/uL RBC (4.1-5.4) x10^6/uL Hgb (12.0-16.0) g/dL Hct (35-47) % MCV (78-100) fL MCH (26-32) pg MCHC (32-36) g/dL RDW (11.5-14.0) % Plt Count (150-450) x10^3/uL MPV (7.5-11.0) fL Sodium (137-145) mmol/L Potassium (3.5-5.1) mmol/L Chloride (98-107) mmol/L Carbon Dioxide (22-30) mmol/L Anion Gap (5-15) MEQ/L BUN (7-17) mg/dL Creatinine (0.52-1.04) mg/dL Estimated GFR ML/MIN Glucose (74-106) mg/dL Calcium (8.4-10.2) mg/dL Magnesium (1.6-2.3) mg/dL NT-Pro-B Natriuret Pep 309 (0-1800) pg/mL Radiology Exams: Radiology Procedures Category Date Time Status CHEST 1 VIEW (PORTABLE) Urgent Exams 10/07/22 13:05 Completed Multi-Disciplinary Progress Notes: Multi-Disciplinary Progress Notes 10/07/22 16:06 Physical Therapy Note by Manolo(L#[id number])Marycruz PT. WAS SEEN BY P.T. THIS AM. IN BED AND SLEEPY W/ GRANDDAUGHTER PRESENT. C/O LBP AT 8-10/10. PN INCREASES W/ FUNCTIONAL MOBILITY. LUMBOSACRAL CORSET POSITIONED TOO HIGH ON PT. PT. AGREEABLE TO ATTEMPT TO WALK W/ P.T. PERFORMED SUPINE TO SIT W/ CGA W/ INCREASED PN. ABLE TO SIT ON SIDE OF BED FOR 1 MIN @ A TIME AND THEN WISHES TO LIE BACK DOWN D/T INCREASED LBP. PT. ABLE TO PERFORM SIT TO STAND W/ CGA-MIN ASSIST BUT NOTES INCREASED LBP. ONLY ABLE TO STAND FOR ~ 30 SECS W/ FLEXED TRUNK AND SUPPORT OF RW LONG ENOUGH TO ADJUST CORSET PROPERLY. PT. TOOK 2-3 STEPS W/ RW AND MIN ASSIST X 2 BEFORE REQUESTING TO RETURN TO BED D/T INCREASED PN. PT. MOVES IMPULSIVELY TO SIT THEN TO S/L POSITION D/T PN. IN PM PT. IN BED AND DID NOT WISH TO ATTEMPT TO GET UP D/T BEING TIRED AND NOT FEELING WELL. NSG REPORTED PT. IS RUNNING A TEMP. PT. DENIED CP FOR PN MG'T WELL. WILL CONT. P.T. 5X/WK TO PREP FOR REHAB STAY AND TO ASSIST W/ PN MG'T. Initialized on 10/07/22 16:06 - END OF NOTE 10/07/22 14:41 Case Management Note by Skye Henson PATIENT CONTINUES TO PLAN TO GO TO [facility] FOR SHORT TERM REHAB AT TIME OF DC Initialized on 10/07/22 14:41 - END OF NOTE 10/07/22 13:24 Respiratory Note by [place],Carrie INCENTIVE SPIROMETRY NOT DONE WITH PT AT THIS TIME. PT SLEEPING. Initialized on 10/07/22 13:24 - END OF NOTE Assessment/Plan (1) Compression fx, lumbar spine Current Visit: Yes Status: Acute Qualifiers: Lumbar vertebra fracture level: L1 Assessment & Plan: pain control required high dose meds over weekend but decreased due to lethargy (2) Nondisplaced zone I fracture of sacrum Current Visit: Yes Status: Acute Qualifiers: Encounter type: subsequent encounter Code(s): S32.110A - NONDISPLACED ZONE I FRACTURE OF SACRUM, INIT FOR CLOS FX (3) Osteoporosis Current Visit: Yes Status: Chronic Code(s): M81.0 - AGE-RELATED OSTEOPOROSIS W/O CURRENT PATHOLOGICAL FRACTURE (4) Intractable back pain Current Visit: Yes Status: Acute Assessment & Plan: improved Code(s): M54.9 - DORSALGIA, UNSPECIFIED (5) Pneumonia Current Visit: Yes Status: Acute Assessment & Plan: possible aspiration - started Zosyn Code(s): J18.9 - PNEUMONIA, UNSPECIFIED ORGANISM
[2022-10-07] MEDS: ZOCOR 20MG PO SCH (17:17)
[2022-10-07] MEDS ORDERED: PIPERACILLIN/TAZOBACTAM 3.375 GM in Sodium Chloride 100ML MINI-BAG PLUS 100 ML IV SCH (18:00)
[2022-10-08] MEDS: Cyclobenzaprine 10 MG PO PRN ×2 (05:24→22:06)
[2022-10-08] MEDS: OXYCODONE-ACETAMINOPHEN 10-325 PO PRN ×3 (05:24→22:05)
[2022-10-08] MEDS: PIPERACILLIN/TAZOBACTAM 4.5 GM in Sodium Chloride 100ML MINI-BAG PLUS 100 ML IV SCH ×3 (05:25→22:05)
[2022-10-08 05:55] LABS: Absolute Neutrophil Ct (ANC) 5.62 x10^3/uL (1.4-6.9); BASOPHIL % 0.5 % (0.0-0.4); Basophil (Absolute #) 0.04 x10^3/uL (0-0.4); Eosinophil % 3.2 % (0.00-5.0); Eosinophil (Absolute #) 0.25 x10^3/uL (0-0.5); Hematocrit 34.7 % (35-47); Hemoglobin 11.5 g/dL (12.0-16.0); IMMATURE GRAN # 0.03 x10^3u/L (0.00-0.03); IMMATURE GRAN % 0.4 % (0.00-0.4); Lymphocyte (Absolute #) 1.12 x10^3/uL (1.0-4.6); Lymphocytes % 14.4 % (24.0-44.0); Mean Cell Volume 88.5 fL (78-100); Mean Corpuscular Hemoglobin 29.3 pg (26-32); Mean Corpuscular Hgb Concent. 33.1 g/dL (32-36); Mean Platelet Volume 10.5 fL (7.5-11.0); Monocyte (Absolute #) 0.74 x10^3/uL (0.0-1.3); Monocytes % 9.5 % (0.0-12.0); Platelet Count 242 x10^3/uL (150-450); Red Blood Count 3.92 x10^6/uL (4.1-5.4); Red Cell Distribution Width 12.5 % (11.5-14.0); White Blood Count 7.8 x10^3/uL (4.0-10.5)
[2022-10-08] MEDS: Neurontin PO SCH ×3 (06:22→18:17)
[2022-10-08 06:57] LABS: ANION GAP 6.1 MEQ/L (5-15); BLOOD UREA NITROGEN 7 mg/dL (7-17); CHLORIDE 98 mmol/L (98-107); Calcium 7.8 mg/dL (8.4-10.2); Carbon Dioxide 30 mmol/L (22-30); Creatinine 1 0.41 mg/dL (0.52-1.04); EST GLOMERULAR FILTRATION RATE > 60.0 ML/MIN; Glucose 101 mg/dL (74-106); Potassium 3.7 mmol/L (3.5-5.1); SODIUM 130 mmol/L (137-145)
[2022-10-08] MEDS: ENOXAPARIN SODIUM SQ SCH (08:42)
[2022-10-08] MEDS: Lidoderm Patch 5% TOP SCH (08:43)
[2022-10-08] MEDS: PROTONIX 40 MG IV IV SCH (08:43)
[2022-10-08] MEDS: Vasotec 10 MG PO SCH ×2 (08:44→22:05)
[2022-10-08] MEDS: Coreg PO SCH ×2 (08:44→22:06)
[2022-10-08] MEDS: NORVASC 5 MG PO SCH ×2 (08:44→22:05)
[2022-10-08] MEDS ORDERED: Duragesic 50MCG Patch TD SCH (10:00)
[2022-10-08] MEDS: ZOCOR 20MG PO SCH (18:17)
--- NOTE | 2022-10-08 18:22 | PCM.NOTE ---
Date and Time: 10/08/221821 Subjective Assessment: Patient still having alot of LBP states brace moves up to her chest when she moves in bed states she was seeing strangers in her room- thinks due to the Gabapentin. so I reduced 400 qid to 300mg bid. She is on Percocet 10mg q 4 and Flexeril and Fentynal 25 patch.Over the weekend had been on 100 mg Fentanyl but was drooling per Granddaughter and not eating. . Objective Exam General Appearance: mild distress (with any movement of torso) Neurologic Exam: alert, oriented x 3, normal mood/affect Skin Exam: normal color, warm, dry Respiratory Exam: diminished breath sounds (bases), crackles/rales, other (CXR - see report) Cardiovascular Exam: regular rate/rhythm Gastrointestinal/Abdomen Exam: soft Extremity Exam: normal inspection OBJECTIVE DATA Vital Signs: Vital Signs - 24 hr Temp Pulse Resp BP Pulse Ox 10/08/22 16:00 98.0 F 80 18 116/37 91 L 10/08/22 12:00 97.8 F 74 19 154/70 94 L 10/08/22 10:41 94 L 10/08/22 07:39 97.7 F 69 18 102/57 90 L 10/08/22 06:51 94 L 10/08/22 04:00 97.7 F 73 16 118/60 92 L 10/07/22 23:32 98.6 F 98 H 16 145/76 91 L 10/07/22 19:34 97.6 F 102 H 17 158/78 87 L 10/07/22 19:20 91 L Pain Assessment - Last Documented Pain Intensity [Lower Back] 10 Pain Intensity 0 Pain Scale Used 0-10 Pain Scale Intake and Output: Intake & Output 10/06/22 10/07/22 10/08/22 10/09/22 11:59 11:59 11:59 11:59 Intake Total 2442 6154 1453 75 Output Total 900 2000 2500 Balance 1546 964 -6952 75 Weight 46.1 kg 43.8 kg 43.8 kg 43.8 kg Lab Results: Lab Results-Last 24 Hours 10/08/22 10/08/22 10/08/22 Range/Units 05:10 05:10 05:10 WBC 7.8 (4.0-10.5) x10^3/uL RBC 3.92 L (4.1-5.4) x10^6/uL Hgb 11.5 L (12.0-16.0) g/dL Hct 34.7 L (35-47) % MCV 88.5 (78-100) fL MCH 29.3 (26-32) pg MCHC 33.1 (32-36) g/dL RDW 12.5 (11.5-14.0) % Plt Count 242 (150-450) x10^3/uL MPV 10.5 (7.5-11.0) fL Gran % 72.0 H (36.0-66.0) % Immature Gran % (Auto) 0.4 (0.00-0.4) % Nucleat RBC Rel Count 0.0 (0.00-0.1) % Eos # (Auto) 0.25 (0-0.5) x10^3/uL Immature Gran # (Auto) 0.03 (0.00-0.03) x10^3u/L Absolute Lymphs (auto) 1.12 (1.0-4.6) x10^3/uL Absolute Monos (auto) 0.74 (0.0-1.3) x10^3/uL Absolute Nucleated RBC 0.00 (0.00-0.01) x10^3u/L Lymphocytes % 14.4 L (24.0-44.0) % Monocytes % 9.5 (0.0-12.0) % Eosinophils % 3.2 (0.00-5.0) % Basophils % 0.5 (0.0-0.4) % Absolute Granulocytes 5.62 (1.4-6.9) x10^3/uL Basophils # 0.04 (0-0.4) x10^3/uL Sodium 130 L (137-145) mmol/L Potassium 3.7 (3.5-5.1) mmol/L Chloride 98 (98-107) mmol/L Carbon Dioxide 30 (22-30) mmol/L Anion Gap 6.1 (5-15) MEQ/L BUN 7 (7-17) mg/dL Creatinine 0.41 L (0.52-1.04) mg/dL Estimated GFR > 60.0 ML/MIN Glucose 101 (74-106) mg/dL Calcium 7.8 L (8.4-10.2) mg/dL NT-Pro-B Natriuret Pep 436 (0-1800) pg/mL Radiology Exams: Radiology Procedures Category Date Time Status CHEST 1 VIEW (PORTABLE) Urgent Exams 10/07/22 13:05 Completed Multi-Disciplinary Progress Notes: Multi-Disciplinary Progress Notes 10/08/22 11:35 Case Management Note by Skye Henson NO CHANGE IN DC PLANS AT THIS TIME- PATIENT TO DC TO [facility] Initialized on 10/08/22 11:35 - END OF NOTE 10/08/22 10:56 Physical Therapy Note by Manolo(Radha#[id number]),Marycruz PT. WAS SEEN BY P.T. THIS AM. IN BED UPON P.T. ARRIVAL TO ROOM. RATES LBP at 6-7/10 @ REST. HAS PN PATCH IN PLACE. ENERGY MANAGEMENT SPECIALIST HAS BEEN D/C'ED. PT. ON 2 L O2. SATS 96% AT REST. PT. AGREEABLE TO GET UP AFTER DISCUSSING IMPORTANCE OF MOVING D/T DIFFICULTY BREATHING AND POTENTIAL FOR PNEUMONIA. PT. NOTED, "SHE WISHED WE WOULD LEAVE HER ALONE. WE KEEP COMING IN JUST SHE IS GETTING COMFORTABLE." PT. PERFORMED SUPINE TO SIT W/ CGA W/ USE OF BED RAIL. SIT TO STAND PERFORMED W/ CGA W/ RW IN FRONT OF HER. PT. NEEDS FREQUENT V.C. TO SLOW MOVEMENTS SHE TENDS TO MOVE QUICKLY AND IMPULSIVELY D/T PN. ATTEMPTED TO LOWER LSO AND PT. REPORTED SHE COULD NOT STAND AND NEEDED TO SIT IN CHAIR. APPLIED CP X 20 MINS TO L-SPINE WHILE IN BED SIDE CHAIR. PERFORMED SEATED LAQS, MARCHES, CALF AND TOE RAISES X 10 REPS. PT. SAT X 30" W/ CP IN PLACE BEFORE ASKING TO GO BACK TO BED. ASSISTED PT. TO DON LSO - APPLIED BARRIER CREAM TO T-L SPINE D/T REDNESS FROM LSO AND PERSPIRATION FROM BEING IN BED. PT. TRANSFERRED BACK TO BED W/ MIN- MOD ASSIST. SIT TO SUPINE PERFORMED W/ CGA. O2 SATS 91% ON RA AFTER TRANSFER. O2 PLACED BACK ON PT. AT 2L. PROGRESS IN P.T. LIMITED BY PERSISTENT AND SEVERE LBP. PT. HAS CONT. NEED FOR SNF PLACEMENT TO INCREASE STRENGTH AND ACTIVITY TOLERANCE WHILE ACUTE LBP FROM COMPRESSION FX IS MANAGED. WILL CONT. P.T. 5X/WK UNTIL D/C TO PREP FOR REHAB STAY. Initialized on 10/08/22 10:56 - END OF NOTE Assessment/Plan (1) Compression fx, lumbar spine Status: Acute Qualifiers: Lumbar vertebra fracture level: L1 Assessment & Plan: trying to acieve pain control without oversedation (2) Nondisplaced zone I fracture of sacrum Status: Acute Qualifiers: Encounter type: subsequent encounter Code(s): S32.110A - NONDISPLACED ZONE I FRACTURE OF SACRUM, INIT FOR CLOS FX (3) Osteoporosis Status: Chronic Qualifiers: Encounter type: subsequent encounter Assessment & Plan: fracture occured while on Fosamax-agrees to HRT testosterone to drive calcium into bone and improve muscle strength Code(s): M81.0 - AGE-RELATED OSTEOPOROSIS W/O CURRENT PATHOLOGICAL FRACTURE (4) Intractable back pain Status: Inactive Assessment & Plan: improved-will go to Rehab soon Code(s): M54.9 - DORSALGIA, UNSPECIFIED (5) Pneumonia Status: Acute Qualifiers: Laterality: right Lung location: lower lobe of lung Assessment & Plan: improved on IV antibiotics and resp following Code(s): J18.9 - PNEUMONIA, UNSPECIFIED ORGANISM
[2022-10-08] MEDS: Calcium 500MG W/Vit D Tablet PO SCH (22:05)
[2022-10-09] MEDS ORDERED: Duragesic 25MCG Patch TD SCH (01:15)
[2022-10-09] MEDS: PIPERACILLIN/TAZOBACTAM 4.5 GM in Sodium Chloride 100ML MINI-BAG PLUS 100 ML IV SCH ×3 (06:52→22:10)
[2022-10-09] MEDS: OXYCODONE-ACETAMINOPHEN 10-325 PO PRN ×2 (06:53→12:38)
[2022-10-09] MEDS: Cyclobenzaprine 10 MG PO PRN ×2 (06:53→12:38)
[2022-10-09] MEDS ORDERED: Neurontin PO SCH (09:00)
[2022-10-09] MEDS: NORVASC 5 MG PO SCH ×2 (09:07→22:06)
[2022-10-09] MEDS: PROTONIX 40 MG IV IV SCH (09:07)
[2022-10-09] MEDS: Calcium 500MG W/Vit D Tablet PO SCH ×2 (09:08→22:06)
[2022-10-09] MEDS: Lidoderm Patch 5% TOP SCH (09:08)
[2022-10-09] MEDS: Coreg PO SCH ×2 (09:08→22:06)
[2022-10-09] MEDS: Vasotec 10 MG PO SCH ×2 (09:08→22:08)
[2022-10-09] MEDS: ENOXAPARIN SODIUM SQ SCH (09:08)
[2022-10-09] MEDS: NEURONTIN PO SCH ×2 (09:08→22:06)
[2022-10-09] MEDS ORDERED: PHARMACY DOSING REQUIRED: DILAUDID PCA IV STA (14:46)
[2022-10-09] MEDS ORDERED: DILAUDID 1 MG/1ML PCA SYRINGE IV PRN ×2 (14:54→15:16)
[2022-10-09] MEDS ORDERED: Sodium Chloride 0.9% 1000 ML 1,000 ML IV SCH (15:15)
[2022-10-09] MEDS ORDERED: Narcan 0.4 MG/ML IV PRN (15:15)
[2022-10-09] MEDS: MAG-OX 400 PO SCH (15:50)
[2022-10-09] MEDS: Duragesic 75 MCG Patch TOP SCH (15:50)
[2022-10-09] MEDS: MILK OF MAGNESIA 30 ML PO PRN (15:50)
[2022-10-09] MEDS: ZOCOR 20MG PO SCH (17:55)
[2022-10-09] MEDS: PATIENT OWN MEDICATION TOP SCH (22:06)
[2022-10-10] MEDS: PIPERACILLIN/TAZOBACTAM 4.5 GM in Sodium Chloride 100ML MINI-BAG PLUS 100 ML IV SCH ×3 (05:44→21:48)
[2022-10-10] MEDS: MILK OF MAGNESIA 30 ML PO PRN (07:44)
[2022-10-10] MEDS: Cyclobenzaprine 10 MG PO PRN (07:48)
[2022-10-10] MEDS: Vasotec 10 MG PO SCH ×2 (09:27→21:45)
[2022-10-10] MEDS: MAG-OX 400 PO SCH (09:27)
[2022-10-10] MEDS: NORVASC 5 MG PO SCH ×2 (09:27→21:44)
[2022-10-10] MEDS: Coreg PO SCH ×2 (09:27→21:45)
[2022-10-10] MEDS: Calcium 500MG W/Vit D Tablet PO SCH ×2 (09:27→21:44)
[2022-10-10] MEDS: Lidoderm Patch 5% TOP SCH (09:28)
[2022-10-10] MEDS: ENOXAPARIN SODIUM SQ SCH (09:28)
[2022-10-10] MEDS: NEURONTIN PO SCH ×2 (09:28→21:45)
[2022-10-10] MEDS: PROTONIX 40 MG IV IV SCH (09:33)
[2022-10-10] MEDS: ZOCOR 20MG PO SCH (17:10)
[2022-10-10] MEDS: PATIENT OWN MEDICATION TOP SCH (21:46)
[2022-10-11] MEDS: PIPERACILLIN/TAZOBACTAM 4.5 GM in Sodium Chloride 100ML MINI-BAG PLUS 100 ML IV SCH ×3 (05:05→20:54)
[2022-10-11] MEDS ORDERED: MILK OF MAGNESIA 30 ML PO ONE (08:59)
[2022-10-11] MEDS: Miralax Powder 17GM PACKET PO SCH (10:20)
[2022-10-11] MEDS: MAG-OX 400 PO SCH (10:22)
[2022-10-11] MEDS: NORVASC 5 MG PO SCH ×2 (10:22→20:55)
[2022-10-11] MEDS: Coreg PO SCH ×2 (10:22→20:55)
[2022-10-11] MEDS: Calcium 500MG W/Vit D Tablet PO SCH ×2 (10:22→20:55)
[2022-10-11] MEDS: Vasotec 10 MG PO SCH ×2 (10:22→20:55)
[2022-10-11] MEDS: NEURONTIN PO SCH ×3 (10:22→21:01)
[2022-10-11] MEDS: PROTONIX 40 MG IV IV SCH (10:22)
[2022-10-11] MEDS: ENOXAPARIN SODIUM SQ SCH (10:28)
[2022-10-11] MEDS: Lidoderm Patch 5% TOP SCH (10:30)
[2022-10-11] MEDS: OXYCODONE-ACETAMINOPHEN 10-325 PO PRN ×2 (11:41→18:06)
[2022-10-11] MEDS: ZOCOR 20MG PO SCH (18:02)
--- NOTE | 2022-10-11 20:17 | PCM.NOTE ---
Date and Time: 10/11/222010 Subjective Assessment: patient states back pain is less intense,still very painful with twisting of torso,is dewayne po Objective Exam General Appearance: no apparent distress (trying to fall aslepp) Neurologic Exam: alert, oriented x 3 Skin Exam: normal color, warm, dry Respiratory Exam: diminished breath sounds (no crackles or wheeze or ronchi) Cardiovascular Exam: regular rate/rhythm Back Exam: other (brace on and in correct placement over T-shirt) OBJECTIVE DATA Vital Signs: Vital Signs - 24 hr Temp Pulse Resp BP Pulse Ox 10/11/22 18:39 92 L 10/11/22 15:53 98.0 F 85 16 121/63 91 L 10/11/22 11:47 98.2 F 93 H 16 127/69 90 L 10/11/22 10:59 90 L 10/11/22 08:13 90 L 10/11/22 07:46 97.5 F 89 16 133/69 97 10/11/22 06:59 16 93 L 10/11/22 04:00 98.4 F 81 16 165/74 94 L 10/11/22 00:00 93 L 10/10/22 23:40 97.8 F 91 H 17 120/70 95 Pain Assessment - Last Documented Pain Intensity [Lower Back] 10 Pain Intensity 8 Pain Scale Used 0-10 Pain Scale Intake and Output: Intake & Output 10/09/22 10/10/22 10/11/22 10/12/22 11:59 11:59 11:59 11:59 Intake Total 755 1051 1289 1018 Output Total 1999 1700 2350 300 [facility] -[phone] Weight 50.1 kg 48.1 kg 48.3 kg Multi-Disciplinary Progress Notes: Multi-Disciplinary Progress Notes 10/11/22 17:07 Physical Therapy Note by Kathie(Radha#[id number]),Jessica PATIENT WAS SEEN ON THIS DATE FOR ADL/MOBILITY TRAINING. PATIENT ABLE TO COME TO SIT ON EDGE OF BED MODIFIED INDEP WITH BED RAIL ASSIST. PATIENT REPORTED PAIN AT REST 5/10 BUT WITH SITTING ON EOB 9/10. PATIENT THEN ABLE TO COMPLETE BED TO CHAIR TRANSFER WITH 2 WHEELED WALKER WITH SBA FOR IV/EQUIPMENT MANAGEMENT. PATIENT REPORTS ONCE IN STANDING AND WITH UE SUPPORT ON WALKER PAIN SLIGHTLY DECREASED. IN SITTING LOOSENED LUMBAR BRACE AND APPLIED ELECTRODES TO LUMBAR REGION AND PRO VIDED ELECTRICAL STIMULATION TREATMENT (TENS) X 20 MINUTES TO MAX SENSORY TOLERANCE. PATIENT REPORTED NO BENEFIT SO TENS REMOVED. FOLLOWING TREATMENT SUPPORT REAPPLIED. Initialized on 10/11/22 17:07 - END OF NOTE 10/11/22 11:26 Case Management Note by Skye Henson Addendum entered by Skye Henson 10/11/22 11:29: THEY CAN RECEIVE PATIENT OVER THE WEEKEND WELL Original Note: PATIENT STILL AGREEABLE TO GO TO [facility]. THEY ARE READY FOR HER AT TIME OF DC. Initialized on 10/11/22 11:26 - END OF NOTE Assessment/Plan (1) Compression fx, lumbar spine Current Visit: Yes Status: Acute Qualifiers: Lumbar vertebra fracture level: L1 (2) Nondisplaced zone I fracture of sacrum Current Visit: Yes Status: Acute Qualifiers: Encounter type: subsequent encounter Code(s): S32.110A - NONDISPLACED ZONE I FRACTURE OF SACRUM, INIT FOR CLOS FX (3) Osteoporosis Current Visit: Yes Status: Chronic Code(s): M81.0 - AGE-RELATED OSTEOPOROSIS W/O CURRENT PATHOLOGICAL FRACTURE (4) Intractable back pain Current Visit: Yes Status: Acute Assessment & Plan: improved Code(s): M54.9 - DORSALGIA, UNSPECIFIED (5) Pneumonia Current Visit: Yes Status: Acute Assessment & Plan: improved clinically - CXR in AM Code(s): J18.9 - PNEUMONIA, UNSPECIFIED ORGANISM
[2022-10-11] MEDS: PATIENT OWN MEDICATION TOP SCH (20:56)
[2022-10-11] MEDS ORDERED: Duragesic 25MCG Patch TD SCH (22:00)
[2022-10-12] MEDS: OXYCODONE-ACETAMINOPHEN 10-325 PO PRN ×2 (00:25→07:58)
[2022-10-12] MEDS: PIPERACILLIN/TAZOBACTAM 4.5 GM in Sodium Chloride 100ML MINI-BAG PLUS 100 ML IV SCH ×2 (06:05→14:23)
--- NOTE | 2022-10-12 07:48 | XRAY ---
Indication: Pneumonia. Comparison: October 07, 2022 Portable chest demonstrates improving right base infiltrate/atelectasis with mild residual. Also diminished cardiomegaly and diminished bibasilar effusions. Stable COPD and right midlung subsegmental atelectasis. No new cardiopulmonary abnormalities.
[2022-10-12] MEDS: Miralax Powder 17GM PACKET PO SCH (10:59)
[2022-10-12] MEDS: NORVASC 5 MG PO SCH (11:00)
[2022-10-12] MEDS: NEURONTIN PO SCH ×2 (11:00→13:17)
[2022-10-12] MEDS: Vasotec 10 MG PO SCH (11:00)
[2022-10-12] MEDS: PROTONIX 40 MG IV IV SCH (11:00)
[2022-10-12] MEDS: MAG-OX 400 PO SCH (11:00)
[2022-10-12] MEDS: ENOXAPARIN SODIUM SQ SCH (11:00)
[2022-10-12] MEDS: Coreg PO SCH (11:00)
[2022-10-12] MEDS: Calcium 500MG W/Vit D Tablet PO SCH (11:00)
[2022-10-12 11:33] VITALS: BP 140/100; PULSE 95; O2SAT 91
[2022-10-12] MEDS ORDERED: Cyclobenzaprine 10 MG PO SCH (12:00)
[2022-10-12] MEDS: Lidoderm Patch 5% TOP SCH (12:18)
[2022-10-12] MEDS: Duragesic 75 MCG Patch TOP SCH (13:18)
== END 2022-10-12 15:33 | DRG 551 ==
LOC: ED 02:21 → MED SURG 09:05 → OBSVTOIN 10-04 13:00
PROVIDERS: ADMIT Family Medicine; ATTEND Family Medicine
DX: S32.010A Wedge compression fracture of first lumbar vertebra, initial encounter for closed fracture (principal); J18.9 Pneumonia, unspecified organism; S32.110A Nondisplaced Zone I fracture of sacrum, initial encounter for closed fracture; M81.0 Age-related osteoporosis without current pathological fracture; U07.1 COVID-19; M54.9 Dorsalgia, unspecified; E07.1 Dyshormogenetic goiter; I10 Essential (primary) hypertension; Z79.899 Other long term (current) drug therapy; Z20.828 Contact with and (suspected) exposure to other viral communicable diseases
CPT/HCPCS: 0241U; 36000; 36415; 71045; 80048; 80053; 81001; 82607; 83735; 83880; 84132; 84443; 85025; 85027; 94760; 94762; 96372; 97110; 97162; 97530; 99281; 99284; G0283; G0378; 97014; J1170; J1650; J2360; J2405; J2543; J2930; Q0162; A9270-GY

== ENCOUNTER 2023-03-07 15:11 | Emergency (ER) | payer MEDICARE, OTHER ==
--- NOTE | 2023-03-07 15:12 | ERPHSYRPT ---
- History of Present Illness Time Seen by Provider: 03/07/23 15:12 Historian: patient, family Exam Limitations: no limitations Physician History: This is an 82-year-old white female resident at [facility] who presents to the emergency department with her daughter who provided independent information history on this patient's rectal bleeding that occurred this morning. Patient had a large bowel movement this morning that was normal in color and consistency. Approximately 15 to 20 minutes later she had a significant amount of blood that passed rectally. This is followed by intermittent episodes of milder amount throughout the day. Patient denies chest pain. Patient denies shortness of breath. Patient feels distended. Patient has a history of gastroesophageal reflux disease and hypertension. Is been several years since her last colonoscopy. Patient denies dizziness. Patient has not had vaginal bleeding. She has had no vomiting episodes. Patient is on oral antibiotics as well as a fentanyl patch for chronic low back pain/co mpression fractures and pain from osteoporosis. This has caused constipation and her in the past. She had been using MiraLAX until recently. However her stools have been softer since that time. Patient arrives to the emergency department with vital signs stable. On 10/08/2022 patient's hemoglobin was 11.5. Patient has never had this before. She does have a history of intermittent hemorrhoidal bleeding but its not like it was today. She is not on any anticoagulation therapy. Timing/Duration: today Activities at Onset: none Quality: pressure (Mild diffuse) Abdominal Pain Onset Location: generalized abdomen (Mild diffuse pressure) Severity of Pain-Max: mild Severity of Pain-Current: mild Associated Symptoms: denies symptoms Previous symptoms: no prior history Allergies/Adverse Reactions: No Known Drug Allergies Allergy (Verified 03/07/23 15:45) Home Medications: Alendronate Sodium 70 mg [Fosamax 70 MG] 70 mg PO WEEKLY 01/04/19 [History] Carvedilol [Coreg ] 6.25 mg PO BID 05/05/22 [History] Amlodipine Besylate [Norvasc] 5 mg PO BID 09/29/22 [History] Atorvastatin Calcium [Lipitor] 10 mg PO DAILY 03/07/23 [History] Docusate Sodium 100 mg [Docusate Sodium 100 MG] 100 mg PO DAILY 03/07/23 [History] Fentanyl 75Mcg Patch [Duragesic 75 MCG Patch] 50 mcg TOP Q3D MDD 1 03/07/23 [History] Hydrocodone/Acetaminophen [Hydrocodone-Acetamin 10-325 mg] 1 tablet PO UD 03/07/23 [History] Hydrocodone/Acetaminophen [Hydrocodone-Acetamin 5-325 mg] 1 each PO UD 03/07/23 [History] Lisinopril 20 mg [Zestril 20 MG] 20 mg PO DAILY 03/07/23 [History] Magnesium 200 mg PO BID 03/07/23 [History] Mirtazapine 15 mg PO HS 03/07/23 [History] Omeprazole 20 mg PO DAILY 03/07/23 [History] ondansetron HCL [Ondansetron HCl] 4 mg PO UD 03/07/23 [History] Hx Tetanus, Diphtheria Vaccination/Date Given: No Hx Influenza Vaccination/Date Given: No Hx Pneumococcal Vaccination/Date Given: No Travel Risk - International Travel Have you traveled outside of the country in past 3 weeks: No - Coronavirus Screening Are you exhibiting any of the following symptoms?: No Close contact with a COVID-19 positive Pt in past 14-21 Days: No - Vaccine Status Have you recieved a Covid-19 vaccination: Yes Phlebotomy Director: Unknown - Vaccination Dates Date of 2cond Vaccination (if applicable): November 28, 2020 - Review of Systems Constitutional: No Symptoms Eyes: No Symptoms Ears, Nose, & Throat: No Symptoms Respiratory: No Symptoms Cardiac: No Symptoms Abdominal/Gastrointestinal: Abdominal Pain (Mild diffuse), Hematochezia Genitourinary Symptoms: No Symptoms (Mild) Musculoskeletal: No Symptoms Skin: No Symptoms Neurological: No Symptoms Psychological: No Symptoms Endocrine: No Symptoms Hematologic/Lymphatic: No Symptoms Immunological/Allergic: No Symptoms All Other Systems: Reviewed and Negative - Past Medical History Pertinent Past Medical History: Yes Neurological History: No Pertinent History ENT History: No Pertinent History Cardiac History: High Cholesterol, Hypertension Respiratory History: No Pertinent History Endocrine Medical History: No Pertinent History Musculoskeletal History: Fractures, Osteoarthritis, Osteoporosis GI Medical History: Hemorrhoids History: No Pertinent History Psycho-Social History: Anxiety, Depression Female Reproductive Disorders: No Pertinent History Other Medical History: States " depression because i found my daughter a week ago" - Past Surgical History Past Surgical History: Yes Neuro Surgical History: No Pertinent History Cardiac: No Pertinent History Respiratory: No Pertinent History Gastrointestinal: Appendectomy Genitourinary: No Pertinent History Musculoskeletal: No Pertinent History Female Surgical History: Hysterectomy Other Surgical History: BACK SURGERY 2016 - Social History Smoking Status: Never smoker Exposure to second hand smoke: No Drug Use: none Patient Lives Alone: Yes - Nursing Vital Signs Nursing Vital Signs: Initial Vital Signs Temperature 98.1 F 03/07/23 15:33 Pulse Rate 87 03/07/23 15:33 Blood Pressure 170/95 03/07/23 15:33 O2 Sat by Pulse Oximetry 94 L 03/07/23 15:33 Pain Scale Pain Intensity 0 - Physical Exam General Appearance: no apparent distress, alert, anxiety, thin Eye Exam: PERRL/EOMI, eyes nml inspection Ears, Nose, Throat Exam: normal ENT inspection, moist mucous membranes Neck Exam: normal inspection, non-tender, supple, full range of motion Respiratory Exam: normal breath sounds, lungs clear, airway intact, No chest tenderness, No respiratory distress Cardiovascular Exam: regular rate/rhythm, normal heart sounds, normal peripheral pulses Gastrointestinal/Abdomen Exam: soft, normal bowel sounds, No tenderness Pelvic Exam: not done Rectal Exam: not done Back Exam: normal inspection, normal range of motion, No CVA tenderness, No vertebral tenderness Extremity Exam: normal inspection, normal range of motion, pelvis stable Neurologic Exam: alert, oriented x 3, cooperative, car top bolter II-XII nml as tested, no rmal mood/affect, nml cerebellar function, nml station & gait, sensation nml Skin Exam: normal color, warm, dry Lymphatic Exam: No adenopathy SpO2 Interpretation: normal O2 Delivery: Room Air - Course Nursing assessment & vital signs reviewed: Yes Ordered Tests: Active Orders 24 hr Category Date Time Status IV Insertion STAT Care 03/07/23 15:49 Active ABDOMEN AND PELVIS W/0 CONTRAS [CT] Stat Exams 03/07/23 15:50 Completed AMYLASE Stat Lab 03/07/23 16:00 Completed CBC W DIFF Stat Lab 03/07/23 16:00 Completed CMP Stat Lab 03/07/23 16:00 Completed LIPASE Stat Lab 03/07/23 16:00 Completed PROTIME WITH INR Stat Lab 03/07/23 16:00 Completed UA W/RFX UR CULTURE Stat Lab 03/07/23 15:30 Completed Lab/Rad Data: Laboratory Result Diagrams 03/07/23 16:00 03/07/23 16:00 Laboratory Results 03/07/23 03/07/23 03/07/23 Range/Units 16:00 16:00 16:00 WBC 7.3 (4.0-10.5) x10^3/uL RBC 3.27 L (4.1-5.4) x10^6/uL Hgb 9.1 L (12.0-16.0) g/dL Hct 29.0 L (35-47) % MCV 88.7 (78-100) fL MCH 27.8 (26-32) pg MCHC 31.4 L (32-36) g/dL RDW 13.5 (11.5-14.0) % Plt Count 366 (150-450) x10^3/uL MPV 9.5 (7.5-11.0) fL Gran % 72.0 H (36.0-66.0) % Immature Gran % (Auto) 0.4 (0.00-0.4) % Nucleat RBC Rel Count 0.0 (0.00-0.1) % Eos # (Auto) 0.08 (0-0.5) x10^3/uL Immature Gran # (Auto) 0.03 (0.00-0.03) x10^3u/L Absolute Lymphs (auto) 1.25 (1.0-4.6) x10^3/uL Absolute Monos (auto) 0.65 (0.0-1.3) x10^3/uL Absolute Nucleated RBC 0.00 (0.00-0.01) x10^3u/L Lymphocytes % 17.1 L (24.0-44.0) % Monocytes % 8.9 (0.0-12.0) % Eosinophils % 1.1 (0.00-5.0) % Basophils % 0.5 (0.0-0.4) % Absolute Granulocytes 5.26 (1.4-6.9) x10^3/uL Basophils # 0.04 (0-0.4) x10^3/uL PT 10.6 (9.4-12.5) SECONDS INR 0.97 (0.8-3.0) Sodium 129 L (137-145) mmol/L Potassium 3.8 (3.5-5.1) mmol/L Chloride 94 L (98-107) mmol/L Carbon Dioxide 28 (22-30) mmol/L Anion Gap 11.2 (5-15) MEQ/L BUN 19 H (7-17) mg/dL Creatinine 0.56 (0.52-1.04) mg/dL Estimated GFR > 60.0 ML/MIN Glucose 131 H (74-106) mg/dL Calcium 8.1 L (8.4-10.2) mg/dL Total Bilirubin 0.30 (0.2-1.3) mg/dL AST 28 (14-36) U/L ALT 19 (0-35) U/L Alkaline Phosphatase 79 (38-126) U/L Serum Total Protein 6.1 L (6.3-8.2) g/dL Albumin 3.4 L (3.5-5.0) g/dL Amylase 35 (30-110) U/L Lipase 43 (23-300) U/L Urine Color (Yellow) Urine Appearance (Clear) Urine pH (4.6-8.0) Ur Specific Copen (1.005-1.030) Urine Protein (Negative) Urine Glucose (UA) (Negative) mg/dL Urine Ketones (Negative) Urine Blood (Negative) Urine Nitrite (Negative) Urine Bilirubin (Negative) Urine Urobilinogen (0.2) mg/dL Ur Leukocyte Esterase (Negative) U Hyaline Cast (Auto) (0-2) /LPF Urine Microscopic RBC (0-5) /HPF Urine Microscopic WBC (0-5) /HPF Ur Epithelial Cells (None Seen) /HPF Urine Bacteria (None Seen) /HPF Urine Culture Reflexed (NO) 03/07/23 Range/Units 15:30 WBC (4.0-10.5) x10^3/uL RBC (4.1-5.4) x10^6/uL Hgb (12.0-16.0) g/dL Hct (35-47) % MCV (78-100) fL MCH (26-32) pg MCHC (32-36) g/dL RDW (11.5-14.0) % Plt Count (150-450) x10^3/uL MPV (7.5-11.0) fL Gran % (36.0-66.0) % Immature Gran % (Auto) (0.00-0.4) % Nucleat RBC Rel Count (0.00-0.1) % Eos # (Auto) (0-0.5) x10^3/uL Immature Gran # (Auto) (0.00-0.03) x10^3u/L Absolute Lymphs (auto) (1.0-4.6) x10^3/uL Absolute Monos (auto) (0.0-1.3) x10^3/uL Absolute Nucleated RBC (0.00-0.01) x10^3u/L Lymphocytes % (24.0-44.0) % Monocytes % (0.0-12.0) % Eosinophils % (0.00-5.0) % Basophils % (0.0-0.4) % Absolute Granulocytes (1.4-6.9) x10^3/uL Basophils # (0-0.4) x10^3/uL PT (9.4-12.5) SECONDS INR (0.8-3.0) Sodium (137-145) mmol/L Potassium (3.5-5.1) mmol/L Chloride (98-107) mmol/L Carbon Dioxide (22-30) mmol/L Anion Gap (5-15) MEQ/L BUN (7-17) mg/dL Creatinine (0.52-1.04) mg/dL Estimated GFR ML/MIN Glucose (74-106) mg/dL Calcium (8.4-10.2) mg/dL Total Bilirubin (0.2-1.3) mg/dL AST (14-36) U/L ALT (0-35) U/L Alkaline Phosphatase (38-126) U/L Serum Total Protein (6.3-8.2) g/dL Albumin (3.5-5.0) g/dL Amylase (30-110) U/L Lipase (23-300) U/L Urine Color Yellow (Yellow) Urine Appearance Clear (Clear) Urine pH 6.5 (4.6-8.0) Ur Specific Copen 1.020 (1.005-1.030) Urine Protein 30 (Negative) Urine Glucose (UA) Negative (Negative) mg/dL Urine Ketones Negative (Negative) Urine Blood Negative (Negative) Urine Nitrite Negative (Negative) Urine Bilirubin Negative (Negative) Urine Urobilinogen 0.2 (0.2) mg/dL Ur Leukocyte Esterase Negative (Negative) U Hyaline Cast (Auto) NONE SEEN (0-2) /LPF Urine Microscopic RBC 0-2 (0-5) /HPF Urine Microscopic WBC 0-2 (0-5) /HPF Ur Epithelial Cells None Seen (None Seen) /HPF Urine Bacteria None Seen (None Seen) /HPF Urine Culture Reflexed NO (NO) - Progress Progress: improved, pain not gone completely Progress Note: 03/07/23 17:28 The CAT scan of the abdomen pelvis without contrast shows mild to moderate fecal stasis. There is sigmoid diverticulosis without diverticulitis. There is acute L3 endplate fracture without spinal canal or foraminal compromise. This patient's medical issue is 1 of moderate complexity. The the level of complexity and the work-up performed is based on the review of the patient's past medical history, review of the patient's medication list, review of the patient's drug allergy list, history present illness and physical findings on examination. Work-up includes CBC, CMP, PT/INR, urinalysis, CT scan of the abdomen pelvis without contrast. The results of the work-up was reviewed by me. Patient has anemia but not to the point where she needs admission or blood transfusion. She is hemodynamically stable. There is no intra-abdominal or intrapelvic findings that are acute or emergent. Patient has multiple degenerative changes in her thoracolumbar spine. She is known to have spinal compression fractures. I will send the patient home with a prescription to return to the lab on 03/08/2023 to repeat a CBC. If her hemoglobin drops under 8 she should proceed to the emergency department at that time. Patient has pain medicine to treat her chronic back pain and the known acute spinal compression fracture. Counseled pt/family regarding: lab results, diagnosis, need for follow-up, rad results Medical Desision Making - Independent Historian Additional History obtained from: Child (Daughter) - Diagnostic Testing Diagnostic test were ordered, analyzed, and reviewed by me: Yes Radiological Interpretation: Reviewed by me, Teleradiologist Report - Risk of complications Low Risk: Low risk of morbidity from additional dx testing or treatment - Departure Departure Disposition: Home Clinical Impression: Rectal bleeding, Spinal compression fracture, Anemia Condition: Stable Critical Care Time: No Referrals: [facility] [LOCATION] - Follow up/PCP as directed Additional Instructions: Drop your diet to a clear liquid diet. Do not use aspirin or ibuprofen medic ation. Return to the hospitalist lab tomorrow morning after 8 AM to repeat a blood count. If the hemoglobin is less than 8 proceed to the emergency department for reevaluation. Return to the emergency department if you have significant bleeding that is causing dizziness or you are having severe a bdominal pain and cramping.
[2023-03-07 16:04] LABS: Absolute Neutrophil Ct (ANC) 5.26 x10^3/uL (1.4-6.9); BASOPHIL % 0.5 % (0.0-0.4); Basophil (Absolute #) 0.04 x10^3/uL (0-0.4); Eosinophil % 1.1 % (0.00-5.0); Eosinophil (Absolute #) 0.08 x10^3/uL (0-0.5); Hemoglobin 9.1 g/dL (12.0-16.0); IMMATURE GRAN # 0.03 x10^3u/L (0.00-0.03); IMMATURE GRAN % 0.4 % (0.00-0.4); Lymphocyte (Absolute #) 1.25 x10^3/uL (1.0-4.6); Lymphocytes % 17.1 % (24.0-44.0); Mean Cell Volume 88.7 fL (78-100); Mean Corpuscular Hemoglobin 27.8 pg (26-32); Mean Corpuscular Hgb Concent. 31.4 g/dL (32-36); Mean Platelet Volume 9.5 fL (7.5-11.0); Monocyte (Absolute #) 0.65 x10^3/uL (0.0-1.3); Monocytes % 8.9 % (0.0-12.0); Platelet Count 366 x10^3/uL (150-450); Red Blood Count 3.27 x10^6/uL (4.1-5.4); Red Cell Distribution Width 13.5 % (11.5-14.0); White Blood Count 7.3 x10^3/uL (4.0-10.5)
[2023-03-07 16:09] LABS: Appearance Clear (Clear); Bacteria None Seen /HPF (None Seen); Bilirubin Negative (Negative); Blood Negative (Negative); Epithelial Cells None Seen /HPF (None Seen); Glucose, Urine Negative (Negative); Hyaline Casts NONE SEEN /LPF (0-2); Ketones Negative (Negative); Leukocyte Esterase Negative (Negative); Nitrite Negative (Negative); Ph 6.5 (4.6-8.0); Protein,Urine Dip 30 (Negative); RBC 0-2 /HPF (0-5); Urobilinogen 0.2 mg/dL (0.2); WBC 0-2 /HPF (0-5)
[2023-03-07 16:20] LABS: ADD URINE CULTURE? NO (NO)
[2023-03-07 16:25] LABS: INR 0.97 (0.8-3.0); PROTIME 10.6 SECONDS (9.4-12.5)
[2023-03-07 16:26] LABS: ALBUMIN 3.4 g/dL (3.5-5.0); ALKALINE PHOSPHATASE 79 U/L (38-126); AMYLASE 35 U/L (30-110); ANION GAP 11.2 MEQ/L (5-15); BLOOD UREA NITROGEN 19 mg/dL (7-17); CHLORIDE 94 mmol/L (98-107); Calcium 8.1 mg/dL (8.4-10.2); Carbon Dioxide 28 mmol/L (22-30); Creatinine 1 0.56 mg/dL (0.52-1.04); EST GLOMERULAR FILTRATION RATE > 60.0 ML/MIN; Glucose 131 mg/dL (74-106); LIPASE 43 U/L (23-300); Potassium 3.8 mmol/L (3.5-5.1); SGOT/AST 28 U/L (14-36); SGPT/ALT 19 U/L (0-35); SODIUM 129 mmol/L (137-145); Total Protein 6.1 g/dL (6.3-8.2)
--- NOTE | 2023-03-07 16:47 | XRAY ---
Indication: Rectal bleeding. Multiple contiguous axial images obtained through the abdomen and pelvis without contrast. Comparison: None Lung bases hyperinflated with mild scattered fibrosis/scarring. No infiltrate or effusion. Heart not enlarged. Small hiatal hernia. Noncontrasted stomach and bowel loops appear nonobstructed. Appendix not visualized. There is mild/moderate diffuse scattered colonic fecal debris. Sigmoid diverticulosis without diverticulitis. Distended gallbladder without gallstones. Previous hysterectomy. Mildly distended urinary bladder with moderate prolapse through vagina. No free fluid/air. Remaining liver, gallbladder, pancreas, spleen, adrenal glands, kidneys, ureters, and bladder are unremarkable for noncontrast exam. Mild scattered aortoiliac calcifications without AAA. Osseous structures intact with osteopenia, mild/moderate multilevel degenerative spondylosis, bilateral L5 spondylolysis with 5-6 mm anterolisthesis, remote L1/L4 compression fractures, L4 kyphoplasty, and old right proximal femur fracture with 3 orthopedic nails. Acute appearing L3 superior endplate fracture with 25-50% height loss. Impression: 1. Mild/moderate diffuse fecal stasis and sigmoid diverticulosis. 2. Distended gallbladder better evaluated with sonogram if clinically warranted. 3. Prolapsed urinary bladder. 4. Acute appearing L3 endplate fracture without spinal canal or foraminal compromise. Remote L1/L3 compression fractures with L4 kyphoplasty. 5. Chronic findings including pulmonary fibrosis/scarring, hiatal hernia, arteriosclerotic disease, and chronic bony findings.
[2023-03-07 18:19] VITALS: BP 155/89; PULSE 96; O2SAT 99
== END 2023-03-07 18:19 | disposition home or self-care (01) ==
LOC: ED 15:11
DX: K62.5 Hemorrhage of anus and rectum (principal); M80.88XA Other osteoporosis with current pathological fracture, vertebra(e), initial encounter for fracture; D64.9 Anemia, unspecified; I10 Essential (primary) hypertension; E78.5 Hyperlipidemia, unspecified; Z79.891 Long term (current) use of opiate analgesic; Z79.899 Other long term (current) drug therapy
CPT/HCPCS: 36000; 36415; 74176; 80053; 81001; 82150; 83690; 85025; 85610; 99283

== ENCOUNTER 2023-03-12 07:05 | Observation (INO) | payer MEDICARE, OTHER ==
--- NOTE | 2023-03-12 08:04 | ERPHSYRPT ---
- History of Present Illness Source: patient, EMS Exam Limitations: other (Poor historian) Patient Subjective Stated Complaint: Pt states that she fell in August and has been at [facility] until about 3 weeks ago, last night she went to get out of bed to go urinate and pt wasn't able to move around very well and finally got to her walker but she still wasn't able to move very well which is not normal, pt got to the restroom and got her walker stuck and so she sat down on the floor with a blanket and tried to urinate and is unable to, pt is here due to lower left back pain and unable to urinate Triage Nursing Assessment: Pt brought to the ER by EMS, hypertensive, rates pain as 10/10, pt was here a couple of days ago and had a CT that shows lumbar fractures, c/o of not being able to urinate, pulses normal, skin n/w/d, unable to move without pain, no difficulties breathing, A&O x3 Physician History: 82 yo WF who was recently released from the [facility] presents w lumbar pain after near fall on way to the bathroom when her walker got stuck. Pt complains of mid- lumbar pain and urinary retention. Pain is 10 on scale. Pt takes hydrocodone regularly for chronic pain. She lives by herself and has a caregiver. Pt denies chest pain/focal weakness/fever/dyspnea/nausea/vomiting/diarrhea. She also hit her head when EMS moved her onto the stretcher. Occurred: this morning Reason for Fall: lost balance (Walker got stuck) Injuries/Pain Location: back Loss of Consciousness: no loss of consciousness Quality: aching Severity of Pain-Max: severe Severity of Pain-Current: severe Modifying Factors: Improves With: nothing, movement Associated Symptoms (Fall): denies symptoms, back pain Allergies/Adverse Reactions: No Known Drug Allergies Allergy (Verified 03/12/23 07:30) Home Medications: Alendronate Sodium 70 mg [Fosamax 70 MG] 70 mg PO WEEKLY 01/04/19 [History] Carvedilol [Coreg ] 6.25 mg PO BID 05/05/22 [History] Amlodipine Besylate [Norvasc] 5 mg PO BID 09/29/22 [History] Atorvastatin Calcium [Lipitor] 10 mg PO DAILY 03/07/23 [History] Docusate Sodium 100 mg [Docusate Sodium 100 MG] 100 mg PO DAILY 03/07/23 [History] Fentanyl 75Mcg Patch [Duragesic 75 MCG Patch] 50 mcg TOP Q3D MDD 1 03/07/23 [History] Hydrocodone/Acetaminophen [Hydrocodone-Acetamin 10-325 mg] 1 tablet PO UD 03/07/23 [History] Hydrocodone/Acetaminophen [Hydrocodone-Acetamin 5-325 mg] 1 each PO UD 03/07/23 [History] Lisinopril 20 mg [Zestril 20 MG] 20 mg PO DAILY 03/07/23 [History] Magnesium 200 mg PO BID 03/07/23 [History] Mirtazapine 15 mg PO HS 03/07/23 [History] Omeprazole 20 mg PO DAILY 03/07/23 [History] ondansetron HCL [Ondansetron HCl] 4 mg PO UD 03/07/23 [History] Hx Tetanus, Diphtheria Vaccination/Date Given: No Hx Influenza Vaccination/Date Given: No Hx Pneumococcal Vaccination/Date Given: No Travel Risk - International Travel Have you traveled outside of the country in past 3 weeks: No - Coronavirus Screening Are you exhibiting any of the following symptoms?: No Close contact with a COVID-19 positive Pt in past 14-21 Days: No - Vaccine Status Have you recieved a Covid-19 vaccination: Yes Feather Trimmer: Unknown - Vaccination Dates Date of 2cond Vaccination (if applicable): November 28, 2020 Dates if Unknown: 2020 - Review of Systems Constitutional: No Symptoms Eyes: No Symptoms Ears, Nose, & Throat: No Symptoms Respiratory: No Symptoms Cardiac: No Symptoms Abdominal/Gastrointestinal: No Symptoms Genitourinary Symptoms: No Symptoms Skin: No Symptoms Neurological: No Symptoms Psychological: No Symptoms Endocrine: No Symptoms Hematologic/Lymphatic: No Symptoms Immunological/Allergic: No Symptoms - Past Medical History Pertinent Past Medical History: Yes Neurological History: No Pertinent History ENT History: No Pertinent History Cardiac History: High Cholesterol, Hypertension Respiratory History: No Pertinent History Endocrine Medical History: No Pertinent History Musculoskeletal History: Fractures, Osteoarthritis, Osteoporosis GI Medical History: Hemorrhoids History: No Pertinent History Psycho-Social History: Anxiety, Depression Female Reproductive Disorders: No Pertinent History Other Medical History: depression due to finding her daughter - Past Surgical History Past Surgical History: Yes Neuro Surgical History: No Pertinent History Cardiac: No Pertinent History Respiratory: No Pertinent History Gastrointestinal: Appendectomy Genitourinary: No Pertinent History Musculoskeletal: No Pertinent History Female Surgical History: Hysterectomy Other Surgical History: BACK SURGERY 2016 - Social History Smoking Status: Never smoker Exposure to second hand smoke: No Drug Use: none Patient Lives Alone: Yes - Nursing Vital Signs Nursing Vital Signs: Initial Vital Signs Temperature 98.2 F 03/12/23 07:08 Pulse Rate 92 H 03/12/23 07:08 Blood Pressure 160/83 03/12/23 07:08 O2 Sat by Pulse Oximetry 92 L 03/12/23 07:08 Pain Scale Pain Intensity [] 10 Pain Intensity 10 Hypertensive/Borderline sats - [place] Coma Score Best Eye Response (Miki): (4) open spontaneously Best Verbal Response (Miki): (5) oriented Best Motor Response (Miki): (6) obeys commands [place] Total: 15 - Physical Exam General Appearance: no apparent distress Head Injury: no evidence of injury Eye Exam: PERRL/EOMI, eyes nml inspection ENT Exam: airway nml, No evidence of ENT injury, No clear fluid (ears), No clear fluid (nose) Neck Exam: supple, trachea midline, full range of motion Respiratory/Chest Exam: rales (Faint rales B bases), No chest tenderness, No respiratory distress Cardiovascular Exam: normal heart sounds, regular rate/rhythm, normal peripheral pulses, No murmur Gastrointestinal Exam: soft, normal bowel sounds, No tenderness Back Exam: vertebral tenderness (Mod superior and mid-L-spine TTP) Extremity Exam: normal inspection, normal range of motion, capillary refill <3 sec, pelvis stable Peripheral Pulses: carotid (R): 2+, carotid (L): 2+ Neurologic Exam: alert, oriented x 3, cooperative, automobile upholsterer II-XII nml as tested, normal mood/affect, sensation nml Skin Exam: normal color, warm SpO2 Interpretation: borderline oxygenation SpO2: 92 O2 Delivery: Room Air - Course Nursing assessment & vital signs reviewed: Yes EKG Interpreted by Me: RATE (NSR/Rate89/Prolonged QTc/1st degree AV block) - CT Exams Head CT Interpretation: Discussed w/radiologist (CT head-nothing acute) Cervical Spine CT Interpretation: Discussed w/radiologist (CT C-spine nothing acute) Chest CT Interpretation: Discussed w/radiologist (RLL airspace dz/Small B effusions/New T9-L3 compression fx's/Remote T11-L1 compression fx's/TAA 4.2 cm) Abdomen/Pelvis CT Interpretation: Discussed w/radiologist (Distended gallbladder/fecal stasis/Acute L3 endplate fx/Remote G21-H7-R8 compression fx's) Ordered Tests: Active Orders 24 hr Category Date Time Status Bedrest ROUTINE Activity 03/12/23 10:06 Active Code Status Order ROUTINE Care 03/12/23 10:04 Active EKG-ER Only STAT Care 03/12/23 07:24 Active IV Care Q6H Care 03/12/23 10:[address] in Observation ROUTINE Care 03/12/23 10:04 Active Vital Signs Q4H Care 03/12/23 10:04 Active House Regular Diet Diet 03/12/23 Lunch Active ABDOMEN AND PELVIS W/0 CONTRAS [CT] Stat Exams 03/12/23 07:24 Completed CERVICAL SPINE WO CONTRAST [CT] Stat Exams 03/12/23 07:23 Completed CHEST WITHOUT CONTRAST [CT] Stat Exams 03/12/23 07:23 Completed HEAD WITHOUT CONTRAST [CT] Stat Exams 03/12/23 07:23 Completed BLOOD CULTURE Stat Lab 03/12/23 Ordered CBC W DIFF AM.LAB Lab 03/13/23 04:00 Ordered CBC W DIFF Stat Lab 03/12/23 08:30 Completed CMP AM.LAB Lab 03/13/23 04:00 Ordered CMP Stat Lab 03/12/23 08:30 Completed CULTURE,URINE Stat Lab 03/12/23 07:38 Received Lactic Acid Stat Lab 03/12/23 09:12 Completed NT PRO BNPII Stat Lab 03/12/23 07:15 Completed PROTIME WITH INR Stat Lab 03/12/23 08:30 Completed PTT Stat Lab 03/12/23 08:30 Completed TROPONIN Q4H Lab 03/12/23 08:30 Completed TROPONIN Q4H Lab 03/12/23 11:30 Ordered TROPONIN Q4H Lab 03/12/23 15:30 Ordered UA W/RFX UR CULTURE Stat Lab 03/12/23 07:38 Completed Transfer Order Routine Transfer 03/12/23 Ordered Medication Summary Generic Name Dose Route Start Last Admin Trade Name Freq PRN Reason Stop Dose Admin Sodium Chloride 1,000 mls @ 80 mls/hr 03/12/23 10:15 Sodium Chloride 0.9% 1000 Ml IV 04/11/23 10:14 .[id number] KARLIE Azithromycin 500 mg in 250 mls @ 250 mls/hr 03/13/23 10:00 Zithromax 500 Mg/ 250 Ml Nacl Premix IV 04/12/23 09:59 Q24H10 KARLIE Morphine Sulfate 2 mg 03/12/23 10:10 Morphine Sulfate 2 Mg/Ml Inj IV 03/17/23 10:09 Q2H PRN PRN PAIN Ondansetron HCl 4 mg 03/12/23 10:04 03/12/23 10:20 Ondansetron Hcl 4 Mg/2 Ml Vial IV 04/11/23 10:03 4 mg Q6H PRN PRN Administration NAUSEA/VOMITING Discontinued Medications Generic Name Dose Route Start Last Admin Trade Name Kieran PRN Reason Stop Dose Admin Ceftriaxone Sodium/Dextrose 1 g in 50 mls @ 100 mls/hr 03/12/23 09:56 03/12/23 10:04 Rocephin 1 Gm-D5w 50 Ml Bag IV 03/12/23 10:25 100 mls/hr STAT STA 100 mls/hr Administration Ceftriaxone Sodium/Dextrose Confirm 03/12/23 10:01 Rocephin 1 Gm-D5w 50 Ml Bag Administered 03/12/23 10:02 Dose 1 g in 50 mls @ ud IV .STK-MED ONE Ketorolac Tromethamine 15 mg 03/12/23 08:17 03/12/23 08:23 Ketorolac Tromethamine 30 Mg/Ml Inj IV 03/12/23 08:18 15 mg STAT ONE Administration Ketorolac Tromethamine Confirm 03/12/23 08:19 Ketorolac Tromethamine 30 Mg/Ml Inj Administered 03/12/23 08:20 Dose 30 mg .ROUTE .STK-MED ONE Morphine Sulfate 2 mg 03/12/23 10:17 03/12/23 10:20 Morphine Sulfate 2 Mg/Ml Inj IV 03/12/23 10:18 2 mg STAT ONE Administration Ondansetron HCl 4 mg 03/12/23 10:19 Ondansetron Hcl 4 Mg/2 Ml Vial IV 06/14/23 10:20 STAT ONE Lab/Rad Data: Laboratory Result Diagrams 03/12/23 08:30 03/12/23 08:30 Laboratory Results 03/12/23 03/12/23 03/12/23 Range/Units 09:12 08:30 08:30 WBC (4.0-10.5) x10^3/uL RBC (4.1-5.4) x10^6/uL Hgb (12.0-16.0) g/dL Hct (35-47) % MCV (78-100) fL MCH (26-32) pg MCHC (32-36) g/dL RDW (11.5-14.0) % Plt Count (150-450) x10^3/uL MPV (7.5-11.0) fL Gran % (36.0-66.0) % Immature Gran % (Auto) (0.00-0.4) % Nucleat RBC Rel Count (0.00-0.1) % Eos # (Auto) (0-0.5) x10^3/uL Immature Gran # (Auto) (0.00-0.03) x10^3u/L Absolute Lymphs (auto) (1.0-4.6) x10^3/uL Absolute Monos (auto) (0.0-1.3) x10^3/uL Absolute Nucleated RBC (0.00-0.01) x10^3u/L Lymphocytes % (24.0-44.0) % Monocytes % (0.0-12.0) % Eosinophils % (0.00-5.0) % Basophils % (0.0-0.4) % Absolute Granulocytes (1.4-6.9) x10^3/uL Basophils # (0-0.4) x10^3/uL PT 10.6 (9.4-12.5) SECONDS INR 0.97 (0.8-3.0) APTT 28.0 (25.1-36.5) SECONDS Sodium (137-145) mmol/L Potassium (3.5-5.1) mmol/L Chloride (98-107) mmol/L Carbon Dioxide (22-30) mmol/L Anion Gap (5-15) MEQ/L BUN (7-17) mg/dL Creatinine (0.52-1.04) mg/dL Estimated GFR ML/MIN Glucose (74-106) mg/dL Lactic Acid 1.1 (0.4-2.0) Calcium (8.4-10.2) mg/dL Total Bilirubin (0.2-1.3) mg/dL AST (14-36) U/L ALT (0-35) U/L Alkaline Phosphatase (38-126) U/L Troponin I < 0.012 (0.000-0.034) ng/mL NT-Pro-B Natriuret Pep (<300) pg/mL Serum Total Protein (6.3-8.2) g/dL Albumin (3.5-5.0) g/dL Urine Color (Yellow) Urine Appearance (Clear) Urine pH (4.6-8.0) Ur Specific [place] (1.005-1.030) Urine Protein (Negative) Urine Glucose (UA) (Negative) mg/dL Urine Ketones (Negative) Urine Blood (Negative) Urine Nitrite (Negative) Urine Bilirubin (Negative) Urine Urobilinogen (0.2) mg/dL Ur Leukocyte Esterase (Negative) U Hyaline Cast (Auto) (0-2) /LPF Urine Microscopic RBC (0-5) /HPF Urine Microscopic WBC (0-5) /HPF Ur Epithelial Cells (None Seen) /HPF Urine Bacteria (None Seen) /HPF Urine Culture Reflexed (NO) 03/12/23 03/12/23 03/12/23 Range/Units 08:30 08:30 07:38 WBC 7.8 (4.0-10.5) x10^3/uL RBC 2.99 L (4.1-5.4) x10^6/uL Hgb 8.4 L (12.0-16.0) g/dL Hct 25.8 L (35-47) % MCV 86.3 (78-100) fL MCH 28.1 (26-32) pg MCHC 32.6 (32-36) g/dL RDW 13.3 (11.5-14.0) % Plt Count 404 (150-450) x10^3/uL MPV 9.8 (7.5-11.0) fL Gran % 79.5 H (36.0-66.0) % Immature Gran % (Auto) 0.5 H (0.00-0.4) % Nucleat RBC Rel Count 0.0 (0.00-0.1) % Eos # (Auto) 0.02 (0-0.5) x10^3/uL Immature Gran # (Auto) 0.04 H (0.00-0.03) x10^3u/L Absolute Lymphs (auto) 0.64 L (1.0-4.6) x10^3/uL Absolute Monos (auto) 0.89 (0.0-1.3) x10^3/uL Absolute Nucleated RBC 0.00 (0.00-0.01) x10^3u/L Lymphocytes % 8.2 L (24.0-44.0) % Monocytes % 11.4 (0.0-12.0) % Eosinophils % 0.3 (0.00-5.0) % Basophils % 0.1 (0.0-0.4) % Absolute Granulocytes 6.20 (1.4-6.9) x10^3/uL Basophils # 0.01 (0-0.4) x10^3/uL PT (9.4-12.5) SECONDS INR (0.8-3.0) APTT (25.1-36.5) SECONDS Sodium 125 L (137-145) mmol/L Potassium 3.5 (3.5-5.1) mmol/L Chloride 88 L (98-107) mmol/L Carbon Dioxide 28 (22-30) mmol/L Anion Gap 12.9 (5-15) MEQ/L BUN 17 (7-17) mg/dL Creatinine 0.51 L (0.52-1.04) mg/dL Estimated GFR > 60.0 ML/MIN Glucose 113 H (74-106) mg/dL Lactic Acid (0.4-2.0) Calcium 8.0 L (8.4-10.2) mg/dL Total Bilirubin 0.60 (0.2-1.3) mg/dL AST 28 (14-36) U/L ALT 18 (0-35) U/L Alkaline Phosphatase 101 (38-126) U/L Troponin I (0.000-0.034) ng/mL NT-Pro-B Natriuret Pep (<300) pg/mL Serum Total Protein 6.1 L (6.3-8.2) g/dL Albumin 3.4 L (3.5-5.0) g/dL Urine Color Yellow (Yellow) Urine Appearance Clear (Clear) Urine pH 6.5 (4.6-8.0) Ur Specific [place] 1.010 (1.005-1.030) Urine Protein 30 (Negative) Urine Glucose (UA) Negative (Negative) mg/dL Urine Ketones 15 A (Negative) Urine Blood Negative (Negative) Urine Nitrite Negative (Negative) Urine Bilirubin Negative (Negative) Urine Urobilinogen 0.2 (0.2) mg/dL Ur Leukocyte Esterase Negative (Negative) U Hyaline Cast (Auto) NONE SEEN (0-2) /LPF Urine Microscopic RBC 0-2 (0-5) /HPF Urine Microscopic WBC 0-2 (0-5) /HPF Ur Epithelial Cells None Seen (None Seen) /HPF Urine Bacteria None Seen (None Seen) /HPF Urine Culture Reflexed ORDERED SEPARATELY (NO) 03/12/23 Range/Units 07:15 WBC (4.0-10.5) x10^3/uL RBC (4.1-5.4) x10^6/uL Hgb (12.0-16.0) g/dL Hct (35-47) % MCV (78-100) fL MCH (26-32) pg MCHC (32-36) g/dL RDW (11.5-14.0) % Plt Count (150-450) x10^3/uL MPV (7.5-11.0) fL Gran % (36.0-66.0) % Immature Gran % (Auto) (0.00-0.4) % Nucleat RBC Rel Count (0.00-0.1) % Eos # (Auto) (0-0.5) x10^3/uL Immature Gran # (Auto) (0.00-0.03) x10^3u/L Absolute Lymphs (auto) (1.0-4.6) x10^3/uL Absolute Monos (auto) (0.0-1.3) x10^3/uL Absolute Nucleated RBC (0.00-0.01) x10^3u/L Lymphocytes % (24.0-44.0) % Monocytes % (0.0-12.0) % Eosinophils % (0.00-5.0) % Basophils % (0.0-0.4) % Absolute Granulocytes (1.4-6.9) x10^3/uL Basophils # (0-0.4) x10^3/uL PT (9.4-12.5) SECONDS INR (0.8-3.0) APTT (25.1-36.5) SECONDS Sodium (137-145) mmol/L Potassium (3.5-5.1) mmol/L Chloride (98-107) mmol/L Carbon Dioxide (22-30) mmol/L Anion Gap (5-15) MEQ/L BUN (7-17) mg/dL Creatinine (0.52-1.04) mg/dL Estimated GFR ML/MIN Glucose (74-106) mg/dL Lactic Acid (0.4-2.0) Calcium (8.4-10.2) mg/dL Total Bilirubin (0.2-1.3) mg/dL AST (14-36) U/L ALT (0-35) U/L Alkaline Phosphatase (38-126) U/L Troponin I (0.000-0.034) ng/mL NT-Pro-B Natriuret Pep 684 (<300) pg/mL Serum Total Protein (6.3-8.2) g/dL Albumin (3.5-5.0) g/dL Urine Color (Yellow) Urine Appearance (Clear) Urine pH (4.6-8.0) Ur Specific [place] (1.005-1.030) Urine Protein (Negative) Urine Glucose (UA) (Negative) mg/dL Urine Ketones (Negative) Urine Blood (Negative) Urine Nitrite (Negative) Urine Bilirubin (Negative) Urine Urobilinogen (0.2) mg/dL Ur Leukocyte Esterase (Negative) U Hyaline Cast (Auto) (0-2) /LPF Urine Microscopic RBC (0-5) /HPF Urine Microscopic WBC (0-5) /HPF Ur Epithelial Cells (None Seen) /HPF Urine Bacteria (None Seen) /HPF Urine Culture Reflexed (NO) - Progress Progress Note: 03/12/23 10:29 Nursing note and vital signs reviewed No food or housing insecurities noted Additional history per caregiver All lab results reviewed and shared w pt/caregiver All CT results reviewed and shared w pt/caregiver Blood cultures x2 ordered 1gm IV Rocephin 2mg IV MSO4/4mg IV Zofran Admit per Dr. Canas,warehouse driver wants pt to be an observation admit 03/12/23 10:32 Pt is a DNR Discussed with : Art Counseled pt/family regarding: lab results, diagnosis, rad results Medical Desision Making - Independent Historian Additional History obtained from: Pivot End Polisher - Discussion of managment Care discussed with:: on-call "doc" Reviewed:: Test results, Need for additional workup - Social Determinants of Health Pt's dx & treatment plan are significantly limited by SDOH: financial hardships - Diagnostic Testing Diagnostic test were ordered, analyzed, and reviewed by me: Yes Radiological Interpretation: Reviewed by me - Risk of complications The pt has a high risk of morbidity or mortality based on: Drug therapy requiring intensive monitoring for toxicity - Departure Departure Disposition: Observation Clinical Impression: Rib fracture, Compression fracture, Pneumonia, Pleural effusion Condition: Stable Critical Care Time: No Referrals: KAT JARA NP [Primary Care Provider] - Follow up/PCP as directed
[2023-03-12 08:12] LABS: Appearance Clear (Clear); Bacteria None Seen /HPF (None Seen); Bilirubin Negative (Negative); Blood Negative (Negative); Epithelial Cells None Seen /HPF (None Seen); Glucose, Urine Negative (Negative); Hyaline Casts NONE SEEN /LPF (0-2); Ketones 15 (Negative); Leukocyte Esterase Negative (Negative); Nitrite Negative (Negative); Ph 6.5 (4.6-8.0); Protein,Urine Dip 30 (Negative); RBC 0-2 /HPF (0-5); Urobilinogen 0.2 mg/dL (0.2); WBC 0-2 /HPF (0-5)
[2023-03-12] MEDS ORDERED: TORAdol 30 mg Injection IV ONE (08:17)
[2023-03-12] MEDS ORDERED: TORAdol 30 mg Injection ONE (08:19)
[2023-03-12 08:31] LABS: BASOPHIL % 0.1 % (0.0-0.4); Basophil (Absolute #) 0.01 x10^3/uL (0-0.4); Eosinophil % 0.3 % (0.00-5.0); Eosinophil (Absolute #) 0.02 x10^3/uL (0-0.5); Hematocrit 25.8 % (35-47); Hemoglobin 8.4 g/dL (12.0-16.0); IMMATURE GRAN # 0.04 x10^3u/L (0.00-0.03); IMMATURE GRAN % 0.5 % (0.00-0.4); Lymphocyte (Absolute #) 0.64 x10^3/uL (1.0-4.6); Lymphocytes % 8.2 % (24.0-44.0); Mean Cell Volume 86.3 fL (78-100); Mean Corpuscular Hemoglobin 28.1 pg (26-32); Mean Corpuscular Hgb Concent. 32.6 g/dL (32-36); Mean Platelet Volume 9.8 fL (7.5-11.0); Monocyte (Absolute #) 0.89 x10^3/uL (0.0-1.3); Monocytes % 11.4 % (0.0-12.0); Neutrophil % 79.5 % (36.0-66.0); Platelet Count 404 x10^3/uL (150-450); Red Blood Count 2.99 x10^6/uL (4.1-5.4); Red Cell Distribution Width 13.3 % (11.5-14.0); White Blood Count 7.8 x10^3/uL (4.0-10.5)
--- NOTE | 2023-03-12 08:34 | XRAY ---
Indication: Pain. Trauma. Multiple contiguous axial images obtained through the head without contrast. Comparison: None Age-appropriate global atrophy and minimal periventricular degenerative micro-ischemia bilaterally. No acute intracranial hemorrhage, abnormal extra-axial fluid collection, mass effect. Fourth ventricle is midline without hydrocephalus. Bony calvarium intact. Visualized paranasal sinuses and mastoid air cells are clear. Impression: Nonacute senile brain.
--- NOTE | 2023-03-12 08:36 | XRAY ---
Indication: Pain. Trauma. Multiple contiguous axial images obtained through the cervical spine. Sagittal and coronal reformatted images obtained. Comparison: None Osseous structures demineralized. Axial images negative for acute fracture, suspicious bony lesions, or spinal canal stenosis. Minimal/mild C3-C7 degenerative endplate spurring and mild/moderate multilevel bilateral degenerative facet hypertrophy. Sagittal and coronal reformatted images demonstrates normal cervical lordosis. Minimal 2 mm anterolisthesis C4 on C5 and C7 on T1. Minimal/mild C4-C7 degenerative disc space narrowing. No acute compression fracture or jumped facet. Normal appearing craniocervical junction. Visualized noncontrasted soft tissues demonstrates 1 cm right thyroid hypodense nodule/cyst. CT chest reported separately. Impression: 1. Osteopenia, multilevel degenerative spondylosis, and minimal grade 1 spondylolisthesis C4/C7 segments. 2. No acute abnormalities.
--- NOTE | 2023-03-12 08:48 | XRAY ---
Indication: Pain. Trauma. Multiple contiguous axial images obtained through the chest without contrast. Comparison: September 01, 2020 Lungs demonstrates new posterior right lower lobe consolidating/nonconsolidating airspace disease. Also new small right and tiny left effusions. Elsewhere there is again scattered fibrosis/scarring and inferior right upper lobe calcified granuloma. Heart not enlarged. Aorta again minimally arteriosclerotic with 4.2 cm ascending aortic enlargement. Slightly enlarging moderate size hiatal hernia. Bony thorax demonstrates new acute T9/L3 compression fractures with approximately 25-50 % height loss, and new nondisplaced right 11 rib fracture. Also new finding remote T11/L1 compression fractures with spinal canal narrowing. Interval L4 kyphoplasty. Stable osteopenia, old bilateral rib fractures, remote T4 compression fracture, and T8 kyphoplasty. CT abdomen/pelvis reported separately. Impression: 1. New findings acute T9/L3 compression fractures and nondisplaced acute right 11 rib fracture. 2. Also new remote T11/L1 compression fractures with spinal canal narrowing. 2. New posterior right lower lobe consolidating/nonconsolidating airspace disease with effusion. Rule out aspiration. Also new tiny left effusion. 3. Again chronic findings arteriosclerotic disease with aneurysmal enlargement ascending aorta, scattered fibrosis/scarring, chronic bony findings, and hiatal hernia.
[2023-03-12 08:49] LABS: INR 0.97 (0.8-3.0); PROTIME 10.6 SECONDS (9.4-12.5)
[2023-03-12 08:54] LABS: ALBUMIN 3.4 g/dL (3.5-5.0); ALKALINE PHOSPHATASE 101 U/L (38-126); ANION GAP 12.9 MEQ/L (5-15); BLOOD UREA NITROGEN 17 mg/dL (7-17); CHLORIDE 88 mmol/L (98-107); Carbon Dioxide 28 mmol/L (22-30); Creatinine 1 0.51 mg/dL (0.52-1.04); EST GLOMERULAR FILTRATION RATE > 60.0 ML/MIN; Glucose 113 mg/dL (74-106); Potassium 3.5 mmol/L (3.5-5.1); SGOT/AST 28 U/L (14-36); SGPT/ALT 18 U/L (0-35); SODIUM 125 mmol/L (137-145); Total Protein 6.1 g/dL (6.3-8.2)
--- NOTE | 2023-03-12 08:54 | XRAY ---
Indication: Pain. Trauma. Multiple contiguous axial images obtained through the abdomen and pelvis without contrast. Comparison: March 07, 2023 CT chest reported separately. Patient's arms now produces mild beam artifact. Noncontrasted stomach and bowel loops are nonobstructed again with mild/moderate diffuse scattered colonic fecal debris slightly less than before. Again sigmoid diverticulosis. Urinary bladder near empty with new العلي balloon catheter in situ. Again distended gallbladder without gallstones and previous hysterectomy. No free fluid/air. Remaining liver, pancreas, spleen, adrenal glands, kidneys, and ureters are unremarkable for noncontrast exam. Stable mild aortoiliac calcifications without AAA. Osseous structures again demonstrates osteopenia, mild/moderate multilevel degenerative spondylosis, bilateral L5 spondylolysis with grade 1-2 listhesis, acute L3 superior endplate fracture, remote T11/L1/L4 compression fractures, L4 kyphoplasty, and old right proximal femur fracture with 3 orthopedic screws. Impression: 1. New beam artifact from patient's arms. 2. Stable distended gallbladder better evaluated with sonogram if clinically warranted. 3. Again diffuse fecal stasis with sigmoid diverticulosis. 4. Stable acute L3 endplate fracture, remote T11/L1/L4 compression fractures, L4 kyphoplasty, osteopenia, multilevel degenerative spondylosis, and L5 spondylolysis with mild listhesis.
[2023-03-12 09:05] LABS: ADD URINE CULTURE? ORDERED SEPARATELY (NO)
[2023-03-12] MEDS ORDERED: ROCEPHIN 1 Gm-D5w 50 ml Bag** 1 G/50 ML IVPB IV STA (09:56)
[2023-03-12] MEDS ORDERED: ROCEPHIN 1 Gm-D5w 50 ml Bag** 1 G/50 ML IVPB IV ONE (10:01)
[2023-03-12] MEDS ORDERED: Zofran 4 MG/2 ML VIAL IV PRN (10:04)
[2023-03-12] MEDS ORDERED: MORPHINE SULFATE 2 MG INJ IV PRN (10:10)
[2023-03-12] MEDS ORDERED: Sodium Chloride 0.9% 1000 ML 1,000 ML IV SCH (10:15)
[2023-03-12] MEDS ORDERED: MORPHINE SULFATE 2 MG INJ IV ONE (10:17)
[2023-03-12] MEDS ORDERED: Zofran 4 MG/2 ML VIAL ONE (10:18)
[2023-03-12] MEDS ORDERED: Zofran 4 MG/2 ML VIAL IV ONE (10:19)
[2023-03-12] MEDS: Zithromax 500 MG/ 250 ML NaCl Premix 500 MG/250 ML IVPB IV SCH (12:17)
[2023-03-12] MEDS ORDERED: HYDROCODONE-ACETAMIN 10-325 MG PO PRN (16:23)
--- NOTE | 2023-03-12 16:48 | PCM.HP ---
History of Present Illness - Chief Complaint Chief Complaint: Rib fx/Compression fractures/pneumonia History of Present Illness: is a 82 year old female who was released from [facility] in the last 3 weeks and has been to the ER multiple times since then, she has severe back pain and was apparently admitted here in September, had T11 and L1 compression fractures present on CT in September, she now has apparently new T9 and L3 compression fractures and a rt 11th rib fracture, she is on hydrocodone and a duragesic patch and continues to rate her pain 10/10 repeatedly, she is unable to even roll over to reposition herself in the bed at this time, I have no idea how she was functioning at home, she has a large protruberant cystocele, she is in very poor physical condition. I have been totally uninvolved in her care before today. - Review of Systems Constitutional: No Fever, No Chills Respiratory: No Cough, No Short Of Breath Cardiac: No Chest Pain, No Edema, No Syncope Abdominal/Gastrointestinal: Constipation, No Abdominal Pain, No Nausea, No Vomiting, No Diarrhea Genitourinary Symptoms: Urinary Retention Musculoskeletal: Back Pain Medications & Allergies Home Medications: Home Medication List Alendronate Sodium 70 mg [Fosamax 70 MG] 70 mg PO WEEKLY 01/04/19 [History Confirmed 03/12/23] Carvedilol [Coreg ] 6.25 mg PO BID 05/05/22 [History Confirmed 03/12/23] Amlodipine Besylate [Norvasc] 5 mg PO BID 09/29/22 [History Confirmed 03/12/23] Aspirin EC 81 mg [Ecotrin 81 mg] 81 mg PO DAILY #30 tablet 10/12/22 [Rx Confirmed 03/12/23] Polyethylene Glycol 3350 17 gm [Miralax Powder 17GM PACKET] 17 gm PO DAILY #30 pkt 10/12/22 [Rx Confirmed 03/12/23] Atorvastatin Calcium [Lipitor] 10 mg PO DAILY 03/07/23 [History Confirmed 03/12/23] Docusate Sodium 100 mg [Docusate Sodium 100 MG] 100 mg PO DAILY 03/07/23 [History Confirmed 03/12/23] Hydrocodone/Acetaminophen [Hydrocodone-Acetamin 10-325 mg] 1 tablet PO Q6H 03/07/23 [History Confirmed 03/12/23] Lisinopril 20 mg [Zestril 20 MG] 20 mg PO DAILY 03/07/23 [History Confi rmed 03/12/23] Magnesium 200 mg PO BID 03/07/23 [History Confirmed 03/12/23] Mirtazapine 15 mg PO HS 03/07/23 [History Confirmed 03/12/23] Omeprazole 20 mg PO DAILY 03/07/23 [History Confirmed 03/12/23] ondansetron HCL [Ondansetron HCl] 4 mg PO Q8H PRN PRN 03/07/23 [History Confirmed 03/12/23] Fentanyl 50Mcg Patch [Duragesic 50MCG Patch] 50 mcg TOP Q3D 03/12/23 [History Confirmed 03/12/23] Allergies/Adverse Reactions: Allergies Allergy/AdvReac Type Severity Reaction Status Date / Time No Known Drug Allergies Allergy Verified 03/12/23 07:30 - Past Medical History Past Medical History: Yes Neurological History: No Pertinent History ENT History: No Pertinent History Cardiac History: High Cholesterol, Hypertension Respiratory History: No Pertinent History Endocrine Medical History: No Pertinent History Musculoskelatal History: Fractures, Osteoarthritis, Osteoporosis GI Medical History: Hemorrhoids History: No Pertinent History Pyscho-Social History: Anxiety, Depression Reproductive Disorders: No Pertinent History Comment: depression due to finding her daughter - Past Surgical History Past Surgical History: Yes Neuro Surgical History: No Pertinent History Cardiac History: No Pertinent History Respiratory Surgery: No Pertinent History GI Surgical History: Appendectomy Genitourinary Surgical Hx: No Pertinent History Musculskeletal Surgical Hx: No Pertinent History Female Surgical History: Hysterectomy Other Surgical History: BACK SURGERY 2015, Kyphoplasty to L4 and and t8 compression fractures in 2022,T9, T11, L3 and L1 compression fx - Social History Smoking Status: Never smoker Exposure to second hand smoke: No Alcohol: None Drug Use: none - Physical Exam Vital Signs: Vital Signs - 24 hr Temp Pulse Resp BP BP Pulse Ox 03/12/23 11:47 98.2 F 92 H 18 160/83 92 L 03/12/23 10:32 92 L 03/12/23 10:00 131/60 94 L 03/12/23 09:30 143/75 93 L 03/12/23 09:00 83/42 95 03/12/23 08:31 108/55 03/12/23 08:01 145/70 93 L 03/12/23 07:08 98.2 F 92 H 160/83 160/83 92 L General Appearance: mild distress (unable to roll to her side, requires assistance to turn in the bed, photographs reviewed of cystocele with nursing), thin Neurologic Exam: alert Respiratory Exam: normal breath sounds, lungs clear, No respiratory distress Cardiovascular Exam: regular rate/rhythm, normal heart sounds, normal peripheral pulses Gastrointestinal/Abdomen Exam: soft, normal bowel sounds, No tenderness, No mass Skin Exam: normal color, warm, dry Results - Labs Lab/Micro Results: Lab Results-Last 24 Hours 03/12/23 03/12/23 03/12/23 Range/Units 07:15 07:38 08:30 WBC 7.8 (4.0-10.5) x10^3/uL RBC 2.99 L (4.1-5.4) x10^6/uL Hgb 8.4 L (12.0-16.0) g/dL Hct 25.8 L (35-47) % MCV 86.3 (78-100) fL MCH 28.1 (26-32) pg MCHC 32.6 (32-36) g/dL RDW 13.3 (11.5-14.0) % Plt Count 404 (150-450) x10^3/uL MPV 9.8 (7.5-11.0) fL Gran % 79.5 H (36.0-66.0) % Immature Gran % (Auto) 0.5 H (0.00-0.4) % Nucleat RBC Rel Count 0.0 (0.00-0.1) % Eos # (Auto) 0.02 (0-0.5) x10^3/uL Immature Gran # (Auto) 0.04 H (0.00-0.03) x10^3u/L Absolute Lymphs (auto) 0.64 L (1.0-4.6) x10^3/uL Absolute Monos (auto) 0.89 (0.0-1.3) x10^3/uL Absolute Nucleated RBC 0.00 (0.00-0.01) x10^3u/L Lymphocytes % 8.2 L (24.0-44.0) % Monocytes % 11.4 (0.0-12.0) % Eosinophils % 0.3 (0.00-5.0) % Basophils % 0.1 (0.0-0.4) % Absolute Granulocytes 6.20 (1.4-6.9) x10^3/uL Basophils # 0.01 (0-0.4) x10^3/uL PT (9.4-12.5) SECONDS INR (0.8-3.0) APTT (25.1-36.5) SECONDS Sodium (137-145) mmol/L Potassium (3.5-5.1) mmol/L Chloride (98-107) mmol/L Carbon Dioxide (22-30) mmol/L Anion Gap (5-15) MEQ/L BUN (7-17) mg/dL Creatinine (0.52-1.04) mg/dL Estimated GFR ML/MIN Glucose (74-106) mg/dL Lactic Acid (0.4-2.0) Calcium (8.4-10.2) mg/dL Total Bilirubin (0.2-1.3) mg/dL AST (14-36) U/L ALT (0-35) U/L Alkaline Phosphatase (38-126) U/L Troponin I (0.000-0.034) ng/mL NT-Pro-B Natriuret Pep 684 (<300) pg/mL Serum Total Protein (6.3-8.2) g/dL Albumin (3.5-5.0) g/dL Urine Color Yellow (Yellow) Urine Appearance Clear (Clear) Urine pH 6.5 (4.6-8.0) Ur Specific [place] 1.010 (1.005-1.030) Urine Protein 30 (Negative) Urine Glucose (UA) Negative (Negative) mg/dL Urine Ketones 15 A (Negative) Urine Blood Negative (Negative) Urine Nitrite Negative (Negative) Urine Bilirubin Negative (Negative) Urine Urobilinogen 0.2 (0.2) mg/dL Ur Leukocyte Esterase Negative (Negative) U Hyaline Cast (Auto) NONE SEEN (0-2) /LPF Urine Microscopic RBC 0-2 (0-5) /HPF Urine Microscopic WBC 0-2 (0-5) /HPF Ur Epithelial Cells None Seen (None Seen) /HPF Urine Bacteria None Seen (None Seen) /HPF Urine Culture Reflexed ORDERED SEPARATELY (NO) 03/12/23 03/12/23 03/12/23 Range/Units 08:30 08:30 08:30 WBC (4.0-10.5) x10^3/uL RBC (4.1-5.4) x10^6/uL Hgb (12.0-16.0) g/dL Hct (35-47) % MCV (78-100) fL MCH (26-32) pg MCHC (32-36) g/dL RDW (11.5-14.0) % Plt Count (150-450) x10^3/uL MPV (7.5-11.0) fL Gran % (36.0-66.0) % Immature Gran % (Auto) (0.00-0.4) % Nucleat RBC Rel Count (0.00-0.1) % Eos # (Auto) (0-0.5) x10^3/uL Immature Gran # (Auto) (0.00-0.03) x10^3u/L Absolute Lymphs (auto) (1.0-4.6) x10^3/uL Absolute Monos (auto) (0.0-1.3) x10^3/uL Absolute Nucleated RBC (0.00-0.01) x10^3u/L Lymphocytes % (24.0-44.0) % Monocytes % (0.0-12.0) % Eosinophils % (0.00-5.0) % Basophils % (0.0-0.4) % Absolute Granulocytes (1.4-6.9) x10^3/uL Basophils # (0-0.4) x10^3/uL PT 10.6 (9.4-12.5) SECONDS INR 0.97 (0.8-3.0) APTT 28.0 (25.1-36.5) SECONDS Sodium 125 L (137-145) mmol/L Potassium 3.5 (3.5-5.1) mmol/L Chloride 88 L (98-107) mmol/L Carbon Dioxide 28 (22-30) mmol/L Anion Gap 12.9 (5-15) MEQ/L BUN 17 (7-17) mg/dL Creatinine 0.51 L (0.52-1.04) mg/dL Estimated GFR > 60.0 ML/MIN Glucose 113 H (74-106) mg/dL Lactic Acid (0.4-2.0) Calcium 8.0 L (8.4-10.2) mg/dL Total Bilirubin 0.60 (0.2-1.3) mg/dL AST 28 (14-36) U/L ALT 18 (0-35) U/L Alkaline Phosphatase 101 (38-126) U/L Troponin I < 0.012 (0.000-0.034) ng/mL NT-Pro-B Natriuret Pep (<300) pg/mL Serum Total Protein 6.1 L (6.3-8.2) g/dL Albumin 3.4 L (3.5-5.0) g/dL Urine Color (Yellow) Urine Appearance (Clear) Urine pH (4.6-8.0) Ur Specific [place] (1.005-1.030) Urine Protein (Negative) Urine Glucose (UA) (Negative) mg/dL Urine Ketones (Negative) Urine Blood (Negative) Urine Nitrite (Negative) Urine Bilirubin (Negative) Urine Urobilinogen (0.2) mg/dL Ur Leukocyte Esterase (Negative) U Hyaline Cast (Auto) (0-2) /LPF Urine Microscopic RBC (0-5) /HPF Urine Microscopic WBC (0-5) /HPF Ur Epithelial Cells (None Seen) /HPF Urine Bacteria (None Seen) /HPF Urine Culture Reflexed (NO) 03/12/23 03/12/23 03/12/23 Range/Units 09:12 11:48 15:08 WBC (4.0-10.5) x10^3/uL RBC (4.1-5.4) x10^6/uL Hgb (12.0-16.0) g/dL Hct (35-47) % MCV (78-100) fL MCH (26-32) pg MCHC (32-36) g/dL RDW (11.5-14.0) % Plt Count (150-450) x10^3/uL MPV (7.5-11.0) fL Gran % (36.0-66.0) % Immature Gran % (Auto) (0.00-0.4) % Nucleat RBC Rel Count (0.00-0.1) % Eos # (Auto) (0-0.5) x10^3/uL Immature Gran # (Auto) (0.00-0.03) x10^3u/L Absolute Lymphs (auto) (1.0-4.6) x10^3/uL Absolute Monos (auto) (0.0-1.3) x10^3/uL Absolute Nucleated RBC (0.00-0.01) x10^3u/L Lymphocytes % (24.0-44.0) % Monocytes % (0.0-12.0) % Eosinophils % (0.00-5.0) % Basophils % (0.0-0.4) % Absolute Granulocytes (1.4-6.9) x10^3/uL Basophils # (0-0.4) x10^3/uL PT (9.4-12.5) SECONDS INR (0.8-3.0) APTT (25.1-36.5) SECONDS Sodium (137-145) mmol/L Potassium (3.5-5.1) mmol/L Chloride (98-107) mmol/L Carbon Dioxide (22-30) mmol/L Anion Gap (5-15) MEQ/L BUN (7-17) mg/dL Creatinine (0.52-1.04) mg/dL Estimated GFR ML/MIN Glucose (74-106) mg/dL Lactic Acid 1.1 (0.4-2.0) Calcium (8.4-10.2) mg/dL Total Bilirubin (0.2-1.3) mg/dL AST (14-36) U/L ALT (0-35) U/L Alkaline Phosphatase (38-126) U/L Troponin I < 0.012 < 0.012 (0.000-0.034) ng/mL NT-Pro-B Natriuret Pep (<300) pg/mL Serum Total Protein (6.3-8.2) g/dL Albumin (3.5-5.0) g/dL Urine Color (Yellow) Urine Appearance (Clear) Urine pH (4.6-8.0) Ur Specific [place] (1.005-1.030) Urine Protein (Negative) Urine Glucose (UA) (Negative) mg/dL Urine Ketones (Negative) Urine Blood (Negative) Urine Nitrite (Negative) Urine Bilirubin (Negative) Urine Urobilinogen (0.2) mg/dL Ur Leukocyte Esterase (Negative) U Hyaline Cast (Auto) (0-2) /LPF Urine Microscopic RBC (0-5) /HPF Urine Microscopic WBC (0-5) /HPF Ur Epithelial Cells (None Seen) /HPF Urine Bacteria (None Seen) /HPF Urine Culture Reflexed (NO) - Radiology Impressions Radiology Exams & Impressions: Radiology Procedures Category Date Time Status ABDOMEN AND PELVIS W/0 CONTRAS [CT] Stat Exams 03/12/23 07:24 Completed CERVICAL SPINE WO CONTRAST [CT] Stat Exams 03/12/23 07:23 Completed CHEST WITHOUT CONTRAST [CT] Stat Exams 03/12/23 07:23 Completed HEAD WITHOUT CONTRAST [CT] Stat Exams 03/12/23 07:23 Completed Assessment/Plan (1) Compression fracture Current Visit: Yes Status: Acute Assessment & Plan: pain is uncontrolled in spite of large amounts of narcotics, will add calcitonin nasal spray, continue duragesic with prn fentanyl IV for breakthrough pain. consult PT for functional status, patient clearly appears unable to care for herself in her own home based on my initial evaluation today. Code(s): LBA2781 - (2) Rib fracture Current Visit: Yes Status: Acute Assessment & Plan: patient with rt pleural effusion, no cough and normal wbc, likely hemothorax from rib fracture, currently stable, will follow h/h Code(s): S22.39XA - FRACTURE OF ONE RIB, UNSP SIDE, INIT FOR CLOS FX (3) Female bladder prolapse Current Visit: No Status: Acute Assessment & Plan: dc in place Code(s): N81.10 - CYSTOCELE, UNSPECIFIED (4) Weakness Current Visit: No Status: Acute Code(s): R53.1 - WEAKNESS (5) Osteoporosis Current Visit: No Status: Chronic Code(s): M81.0 - AGE-RELATED OSTEOPOROSIS W/O CURRENT PATHOLOGICAL FRACTURE
[2023-03-12] MEDS: SUBLIMAZE 100 MCG/2 ML IV PRN ×2 (17:10→22:13)
[2023-03-12] MEDS ORDERED: NON-FORMULARY ITEM (Magnesium [Magnesium] 200 MG Tablet) PO SCH (22:00)
[2023-03-12] MEDS ORDERED: NON-FORMULARY ITEM (Amlodipine Besylate [Norvasc] 2.5 MG Tablet) PO SCH (22:00)
[2023-03-12] MEDS: Coreg PO SCH (22:08)
[2023-03-12] MEDS: MAG-OX 400 PO SCH (22:08)
[2023-03-12] MEDS: NORVASC 5 MG PO SCH (22:08)
[2023-03-13] MEDS: SUBLIMAZE 100 MCG/2 ML IV PRN ×4 (02:28→10:33)
[2023-03-13 07:49] LABS: ALBUMIN 2.7 g/dL (3.5-5.0); ALKALINE PHOSPHATASE 89 U/L (38-126); ANION GAP 7.7 MEQ/L (5-15); BLOOD UREA NITROGEN 9 mg/dL (7-17); CHLORIDE 94 mmol/L (98-107); Calcium 7.3 mg/dL (8.4-10.2); Carbon Dioxide 30 mmol/L (22-30); EST GLOMERULAR FILTRATION RATE > 60.0 ML/MIN; Glucose 95 mg/dL (74-106); Potassium 3.4 mmol/L (3.5-5.1); SGOT/AST 24 U/L (14-36); SGPT/ALT 14 U/L (0-35); SODIUM 128 mmol/L (137-145); Total Protein 5.1 g/dL (6.3-8.2)
[2023-03-13] MEDS ORDERED: Duragesic 75 MCG Patch TD SCH (08:00)
--- NOTE | 2023-03-13 08:38 | XRAY ---
Indication: Rib fracture. Effusion. Comparison: October 12, 2022. Portable chest demonstrates worsening moderate right base and minimally worsening left base infiltrates/atelectasis/effusions. Heart again borderline enlarged. Bony thorax again demonstrates osteopenia, mild degenerative changes, and T8 kyphoplasty with interval L4 kyphoplasty.
[2023-03-13 09:16] LABS: Absolute Neutrophil Ct (ANC) 3.13 x10^3/uL (1.4-6.9); BASOPHIL % 0.6 % (0.0-0.4); Basophil (Absolute #) 0.03 x10^3/uL (0-0.4); Eosinophil % 2.3 % (0.00-5.0); Eosinophil (Absolute #) 0.12 x10^3/uL (0-0.5); Hematocrit 24.5 % (35-47); Hemoglobin 7.7 g/dL (12.0-16.0); IMMATURE GRAN # 0.03 x10^3u/L (0.00-0.03); IMMATURE GRAN % 0.6 % (0.00-0.4); Lymphocyte (Absolute #) 1.26 x10^3/uL (1.0-4.6); Lymphocytes % 23.8 % (24.0-44.0); Mean Cell Volume 87.5 fL (78-100); Mean Corpuscular Hemoglobin 27.5 pg (26-32); Mean Corpuscular Hgb Concent. 31.4 g/dL (32-36); Mean Platelet Volume 10.2 fL (7.5-11.0); Monocyte (Absolute #) 0.72 x10^3/uL (0.0-1.3); Monocytes % 13.6 % (0.0-12.0); Neutrophil % 59.1 % (36.0-66.0); Platelet Count 450 x10^3/uL (150-450); Red Cell Distribution Width 13.4 % (11.5-14.0); White Blood Count 5.3 x10^3/uL (4.0-10.5)
[2023-03-13] MEDS: Zithromax 500 MG/ 250 ML NaCl Premix 500 MG/250 ML IVPB IV SCH (10:00)
[2023-03-13] MEDS ORDERED: NON-FORMULARY ITEM (Omeprazole [Omeprazole] 20 MG Capsule.Dr) PO SCH (10:00)
[2023-03-13] MEDS ORDERED: MIACALCIN SQ SCH (10:00)
[2023-03-13] MEDS ORDERED: NON-FORMULARY ITEM (Atorvastatin Calcium 10 MG Tablet) PO SCH (10:00)
[2023-03-13] MEDS: Docusate Sodium 100 MG PO SCH (10:36)
[2023-03-13] MEDS: Coreg PO SCH ×2 (10:36→21:13)
[2023-03-13] MEDS: ECOTRIN 81 MG PO SCH (10:37)
[2023-03-13] MEDS: Flonase NASAL NS SCH (10:37)
[2023-03-13] MEDS: MAG-OX 400 PO SCH ×2 (10:37→21:13)
[2023-03-13] MEDS: NORVASC 5 MG PO SCH ×2 (10:38→21:13)
[2023-03-13] MEDS: Zocor 10MG PO SCH (10:38)
[2023-03-13] MEDS: Protonix 40MG Tablet PO SCH (10:39)
[2023-03-13] MEDS: Zestril 20 MG PO SCH (10:40)
[2023-03-13] MEDS ORDERED: HYDROMORPHONE 30 MG/30 ML-NS PCA IV PRN (11:20)
[2023-03-13] MEDS ORDERED: Sodium Chloride 0.9% 1000 ML 1,000 ML IV SCH (15:00)
--- NOTE | 2023-03-13 20:52 | PCM.NOTE ---
Date and Time: 03/13/23844 Subjective Assessment: Continues to be in a lot of pain - Review of Systems Constitutional: Other (UNCOMFORTABLE WITH PAIN) Eyes: No Symptoms Ears, Nose, & Throat: No Symptoms Respiratory: No Cough, No Short Of Breath Cardiac: No Chest Pain, No Edema, No Syncope Abdominal/Gastrointestinal: No Abdominal Pain, No Nausea, No Vomiting, No Diarrhea Genitourinary Symptoms: No Dysuria Musculoskeletal: Back Pain Skin: No Rash Neurological: No Dizziness, No Focal Weakness, No Sensory Changes Psychological: No Symptoms Endocrine: No Symptoms Hematologic/Lymphatic: No Symptoms Immunological/Allergic: No Symptoms Objective Exam General Appearance: no apparent distress, alert Neurologic Exam: alert, oriented x 3, cooperative, normal mood/affect, nml cerebellar function, sensation nml, No motor deficits Skin Exam: normal color, warm, dry Eye Exam: PERRL, EOMI, eyes nml inspection Ears, Nose, Throat Exam: normal ENT inspection, pharynx normal, moist mucous membranes Neck Exam: normal inspection, non-tender, supple, full range of motion Respiratory Exam: normal breath sounds, lungs clear, No respiratory distress Cardiovascular Exam: regular rate/rhythm, normal heart sounds Gastrointestinal/Abdomen Exam: soft, No tenderness, No mass Extremity Exam: normal inspection, normal range of motion Back Exam: normal inspection, normal range of motion, No CVA tenderness, No vertebral tenderness Pelvic Exam: deferred Rectal Exam: deferred OBJECTIVE DATA Vital Signs: Vital Signs - 24 hr Temp Pulse Resp BP Pulse Ox 03/13/23 20:00 97.8 F 74 18 109/55 99 03/13/23 19:25 96 03/13/23 16:13 97.8 F 85 16 129/59 93 L 03/13/23 16:00 20 95 03/13/23 15:53 92 L 03/13/23 11:46 18 03/13/23 11:45 97.6 F 100 H 16 169/87 92 L 03/13/23 09:00 98.6 F 83 16 133/61 95 03/13/23 05:00 98.6 F 83 16 133/61 95 03/13/23 00:01 97.9 F 78 16 120/59 97 Pain Assessment - Last Documented Pain Intensity [Left Lower 10 Back] Pain Intensity 0 Pain Scale Used 0-10 Pain Scale Intake and Output: Intake & Output 03/11/23 03/12/23 03/13/23 03/14/23 11:59 11:59 11:59 11:59 Intake Total 960 1388 Output Total 8890 1800 Balance -3390 -412 Weight 45.359 kg 44.9 kg Lab Results: Lab Results-Last 24 Hours 03/13/23 03/13/23 Range/Units 06:30 06:30 WBC 5.3 (4.0-10.5) x10^3/uL RBC 2.80 L (4.1-5.4) x10^6/uL Hgb 7.7 L (12.0-16.0) g/dL Hct 24.5 L (35-47) % MCV 87.5 (78-100) fL MCH 27.5 (26-32) pg MCHC 31.4 L (32-36) g/dL RDW 13.4 (11.5-14.0) % Plt Count 450 (150-450) x10^3/uL MPV 10.2 (7.5-11.0) fL Gran % 59.1 (36.0-66.0) % Immature Gran % (Auto) 0.6 H (0.00-0.4) % Nucleat RBC Rel Count 0.0 (0.00-0.1) % Eos # (Auto) 0.12 (0-0.5) x10^3/uL Immature Gran # (Auto) 0.03 (0.00-0.03) x10^3u/L Absolute Lymphs (auto) 1.26 (1.0-4.6) x10^3/uL Absolute Monos (auto) 0.72 (0.0-1.3) x10^3/uL Absolute Nucleated RBC 0.00 (0.00-0.01) x10^3u/L Lymphocytes % 23.8 L (24.0-44.0) % Monocytes % 13.6 H (0.0-12.0) % Eosinophils % 2.3 (0.00-5.0) % Basophils % 0.6 (0.0-0.4) % Absolute Granulocytes 3.13 (1.4-6.9) x10^3/uL Basophils # 0.03 (0-0.4) x10^3/uL Sodium 128 L (137-145) mmol/L Potassium 3.4 L (3.5-5.1) mmol/L Chloride 94 L (98-107) mmol/L Carbon Dioxide 30 (22-30) mmol/L Anion Gap 7.7 (5-15) MEQ/L BUN 9 (7-17) mg/dL Creatinine 0.50 L (0.52-1.04) mg/dL Estimated GFR > 60.0 ML/MIN Glucose 95 (74-106) mg/dL Calcium 7.3 L (8.4-10.2) mg/dL Total Bilirubin 0.20 (0.2-1.3) mg/dL AST 24 (14-36) U/L ALT 14 (0-35) U/L Alkaline Phosphatase 89 (38-126) U/L Serum Total Protein 5.1 L (6.3-8.2) g/dL Albumin 2.7 L (3.5-5.0) g/dL Radiology Exams: Radiology Procedures Category Date Time Status ABDOMEN AND PELVIS W/0 CONTRAS [CT] Stat Exams 03/12/23 07:24 Completed CERVICAL SPINE WO CONTRAST [CT] Stat Exams 03/12/23 07:23 Completed CHEST 1 VIEW (PORTABLE) Routine Exams 03/13/23 07:30 Completed CHEST WITHOUT CONTRAST [CT] Stat Exams 03/12/23 07:23 Completed HEAD WITHOUT CONTRAST [CT] Stat Exams 03/12/23 07:23 Completed Multi-Disciplinary Progress Notes: Multi-Disciplinary Progress Notes 03/13/23 13:33 Case Management Note by Skye Henson S/Alphonso HENRY- ORTHO NAVIGATOR- [facility] PLANS TO SEND PATIENT HOME ON PO ANTIBIOTICS Initialized on 03/13/23 13:33 - END OF NOTE 03/13/23 12:31 Case Management Note by Skye Henson REFERRAL FAXED TO [facility] Initialized on 03/13/23 12:31 - END OF NOTE 03/13/23 11:36 Case Management Note by Skye Henson/Alphonso PATIENT -PATIENT A&O- SHE IS AWARE SHE WILL NEED 24 HR CARE AT HOME. SHE WAS NOTIFIED THAT FAMILY HAS DECIDED [facility] IS THE MOST RELIABLE CHOICE COMPARED TO MANAGING CAREGIVERS. SHE IS AGREEABLE TO THIS. AND THIS IT PROGRAM MANAGER EDUCATED PATIENT ON HOSPICE SERVICES. SHE WAS NOTIFIED THAT HOSPICE SERVICES WILL BE ABLE TO PROVIDE THE MAX PAIN RELIEF FOR PATIENT SHE EXPRESSED SHE IS MISERABLE AT THIS TIME. SHE WAS NOTIFIED THAT HOSPICE FOCUSES ON QUALITY OF LIFE. SHE VERIFIED UNDERSTANDING. SHE WAS ALSO NOTIFIED THAT IF PAIN IMPROVES AND SHE IS EVENTUALLY ABLE TO DC HOME THAT HOSPICE CAN FOLLOW HER HOME WELL OR CAN DC COMPLETELY. SHE VERIFIED UNDERSTANDING. S/W ANDREZ- SHE REPORTS FAMILY HAS DECIDED FOR PATIENT TO RETURN TO [facility] UNDER PRIVATE PAY. SHE WAS NOTIFIED WE DISCUSSED HOSPICE SERVICES WITH PATIENT AND SHE WOULD LIKE THIS SERVICES. THESE SERVICES WERE EXPLAINED AGAIN TO ANDREZ. SHE IS ALSO AGREEABLE TO ADDING THESE SERVICES TO HER STAY AT [facility]. WE DISCUSSED SHE CAN CHOOSE ANY PROVIDER- NO PREFERENCE IN COMPANY. S/W RONALDO AT [facility] NOTIFIED OF FAMILY/PATIENT DECISIONS. SHE VERIFIED UNDERSTANDING. SHE REPORTS ANY COMPANY IS FINE AND THAT THEY HAVE A GOOD WORKING RELATIONSHIP WITH [employer]. MAJOR ACCOUNT MANAGER NOTIFIED OF PATIENT WISHES. WILL DISCUSS WITH HIM. THEN WILL SEND ORDER AND REFERRAL TO [facility]. STAN WITH [facility] NOTIFIED TO EXPECT REFERRAL. SHE WILL COME SEE PATIENT THIS AFTERNOON AND CALL FAMILY Initialized on 03/13/23 11:36 - END OF NOTE 03/13/23 11:25 Physical Therapy Note by Manolo(L#[id number])Marycruz HOLDING P.T. PATI AT THIS TIME. PT. IS CONSIDERING HOSPICE SERVICES. Initialized on 03/13/23 11:25 - END OF NOTE Assessment/Plan (1) Compression fx, lumbar spine Current Visit: No Status: Acute Qualifiers: Lumbar vertebra fracture level: L1 Assessment & Plan: ASSESSMENT 1. Back Pain secondary to Multilevel Compression Fractures (T3, T9, T11, L1) 2. Chest Pain secondary to Rib Fracture 3. Pneumonia 4. Small Pleural Effusions 5. Hyponatremia 6. Hypokalemia 7. Hypertension 8. Hyperlipidemia PLAN 1. Continued uncontrolled pain; currently on fentanyl patch + fentanyl pushes - will increase both dose of patch + frequency of pushes 2. Continue Abx for PNA; ceftriaxone + azithromycin started 03/12 3. Sodium improving 4. Replete K 5. Will need placement or potentially even hospice PPI The entirety of this encounter was done via telemedicine Ernesto Rivera MD Pulmonary and Critical Care Medicine
[2023-03-14 04:39] LABS: Hematocrit 24.2 % (35-47); Hemoglobin 7.5 g/dL (12.0-16.0); Mean Cell Volume 89.3 fL (78-100); Mean Corpuscular Hemoglobin 27.7 pg (26-32); Platelet Count 354 x10^3/uL (150-450); Red Blood Count 2.71 x10^6/uL (4.1-5.4); Red Cell Distribution Width 13.3 % (11.5-14.0); White Blood Count 5.6 x10^3/uL (4.0-10.5)
[2023-03-14 04:57] LABS: ALBUMIN 2.7 g/dL (3.5-5.0); ALKALINE PHOSPHATASE 83 U/L (38-126); ANION GAP 7.9 MEQ/L (5-15); BLOOD UREA NITROGEN 7 mg/dL (7-17); CHLORIDE 93 mmol/L (98-107); Carbon Dioxide 30 mmol/L (22-30); Creatinine 1 0.42 mg/dL (0.52-1.04); EST GLOMERULAR FILTRATION RATE > 60.0 ML/MIN; Glucose 99 mg/dL (74-106); Potassium 3.2 mmol/L (3.5-5.1); SGOT/AST 26 U/L (14-36); SGPT/ALT 15 U/L (0-35); SODIUM 128 mmol/L (137-145); Total Protein 5.1 g/dL (6.3-8.2)
[2023-03-14] MEDS ORDERED: Duragesic 50MCG Patch TOP SCH (10:00)
[2023-03-14] MEDS: Zocor 10MG PO SCH (11:59)
[2023-03-14] MEDS: Protonix 40MG Tablet PO SCH (11:59)
[2023-03-14] MEDS: Docusate Sodium 100 MG PO SCH (11:59)
[2023-03-14] MEDS: Zestril 20 MG PO SCH (11:59)
[2023-03-14] MEDS: Coreg PO SCH (11:59)
[2023-03-14] MEDS: NORVASC 5 MG PO SCH (11:59)
[2023-03-14] MEDS: ECOTRIN 81 MG PO SCH (12:00)
[2023-03-14] MEDS: Zithromax 500 MG/ 250 ML NaCl Premix 500 MG/250 ML IVPB IV SCH (12:09)
[2023-03-14] MEDS: MAG-OX 400 PO SCH (12:10)
--- NOTE | 2023-03-14 12:37 | PCM.DS ---
Discharge Summary Date of Admission: 03/12/23 10:30 Date of Discharge: 03/14/23 Admitting Physician: CASIE BOB Primary Care Provider: KAT JARA Allergies Allergies No Known Drug Allergies Allergy (Verified 03/12/23 07:30) Hospital Summary - Hospital Course Hospital Course: Pain improved and controlled with analgesia. Plan is for discharge with hospice. CM aware and arrangements for analgesia being coordinated with hospice. The patient was seen and examined via telemedicine. The entirety of this encounter was performed via telemedicine. The patient consented to this telemedicine encounter. - Vitals & Intake/Output Vital Signs: Vital Signs Temperature 98.3 F 03/14/23 11:00 Pulse Rate 73 03/14/23 11:00 Respiratory Rate 16 03/14/23 11:00 Blood Pressure 135/64 03/14/23 11:00 O2 Sat by Pulse Oximetry 92 L 03/14/23 11:00 Intake & Output: Intake & Output 03/12/23 03/13/23 03/14/23 03/15/23 11:59 11:59 11:59 11:59 Intake Total 960 2102 Output Total 4350 2590 Balance -3390 -488 Weight 45.359 kg 44.9 kg - Lab Result Diagrams: 03/14/23 04:00 03/14/23 04:00 Lab Results-Last 24 Hrs: Lab Results-Last 24 Hours 03/14/23 03/14/23 03/14/23 Range/Units 04:00 04:00 05:00 WBC 5.6 (4.0-10.5) x10^3/uL RBC 2.71 L (4.1-5.4) x10^6/uL Hgb 7.5 L (12.0-16.0) g/dL Hct 24.2 L (35-47) % MCV 89.3 (78-100) fL MCH 27.7 (26-32) pg MCHC 31.0 L (32-36) g/dL RDW 13.3 (11.5-14.0) % Plt Count 354 (150-450) x10^3/uL MPV 10.0 (7.5-11.0) fL Sodium 128 L (137-145) mmol/L Potassium 3.2 L (3.5-5.1) mmol/L Chloride 93 L (98-107) mmol/L Carbon Dioxide 30 (22-30) mmol/L Anion Gap 7.9 (5-15) MEQ/L BUN 7 (7-17) mg/dL Creatinine 0.42 L (0.52-1.04) mg/dL Estimated GFR > 60.0 ML/MIN Glucose 99 (74-106) mg/dL Calcium 7.0 L (8.4-10.2) mg/dL Magnesium 2.1 (1.6-2.3) mg/dL Total Bilirubin 0.20 (0.2-1.3) mg/dL AST 26 (14-36) U/L ALT 15 (0-35) U/L Alkaline Phosphatase 83 (38-126) U/L Serum Total Protein 5.1 L (6.3-8.2) g/dL Albumin 2.7 L (3.5-5.0) g/dL Micro Results-Entire Visit: Microbiology 03/12/23 07:38 Urine Culture - Final Catherized NO GROWTH 03/12/23 10:28 Blood Culture - Preliminary Blood - Radiology Exams Ordered Rad Exams-Entire Visit: Radiology Procedures Category Date Time Status CHEST 1 VIEW (PORTABLE) Routine Exams 03/13/23 07:30 Completed - Procedures and Test Procedures and Tests throughout Hospitalization: Therapy Orders & Screens 03/12/23 13:43 PT Screen per Nursing Assess ONCE Comment: Protocol Order Physician Instructions: Greater than 3 points order PT Admission Screenin Reason For Exam: Triggered on Admission Diagnosis: Rib fx/Compression fractures/pneumonia Open Wound/Cellutlitis/Pressure Ulcers: Yes Acute Fx/ORIF/Change in wt bearing status: No Severe MUSCULOSKELETAL pain: Yes ADL Dysfunction: Yes Acute CVA w/Hemiparesis/Hemiplegia: No Decreased Functional Mobility/Strength: Yes Sprain/Strain: No Acute Post-op Mobility Dysfunction: No Total Points: 14 RT Screen per Nursing Assess ONCE Comment: Protocol Order Physician Instructions: Greater than 3 points order RT Admission Screen Reason For Exam: Triggered on Admission Diagnosis: Rib fx/Compression fractures/pneumonia Diagnosis: Rib fx/Compression fractures/pneumonia Pneumonia: Yes Home O2: No Asthma: No CHF: Yes Home CPAP/BIPAP: No Home Nebs/MDI: No Total Points: 6 03/13/23 15:52 Oxygen Nasal Cannula 3 lpm Comment: Diagnosis: Rib fx/Compression fractures/pneumonia Discharge Exam General Appearance: no apparent distress Neurologic Exam: alert, oriented x 3, cooperative, illusionist II-XII nml as tested, normal mood/affect, nml cerebellar function Eye Exam: PERRL, EOMI, eyes nml inspection Ears, Nose, Throat Exam: normal ENT inspection Neck Exam: normal inspection, non-tender, supple, full range of motion Respiratory Exam: normal breath sounds, lungs clear Cardiovascular Exam: regular rate/rhythm, normal heart sounds Gastrointestinal/Abdomen Exam: soft, normal bowel sounds Back Exam: normal range of motion Extremity Exam: normal inspection, normal range of motion Skin Exam: normal color Final Diagnosis/Problem List - Final Discharge Diagnosis/Problem (1) Compression fx, lumbar spine Current Visit: No Status: Acute Assessment & Plan: Analgesia to be managed by hospice. - Discharge Disposition: HOME HEALTH SERVICE Condition: Stable Prescriptions: No Action Alendronate Sodium 70 mg [Fosamax 70 MG] 70 mg PO WEEKLY Carvedilol [Coreg ] 6.25 mg PO BID Amlodipine Besylate [Norvasc] 5 mg PO BID Aspirin EC 81 mg [Ecotrin 81 mg] 81 mg PO DAILY #30 tablet Polyethylene Glycol 3350 17 gm [Miralax Powder 17GM PACKET] 17 gm PO DAILY #30 pkt ondansetron HCL [Ondansetron HCl] 4 mg PO Q8H PRN PRN PRN Reason: Nausea/Vomiting Mirtazapine 15 mg PO HS Omeprazole 20 mg PO DAILY Magnesium 200 mg PO BID Lisinopril 20 mg [Zestril 20 MG] 20 mg PO DAILY Atorvastatin Calcium [Lipitor] 10 mg PO DAILY Hydrocodone/Acetaminophen [Hydrocodone-Acetamin 10-325 mg] 1 tablet PO Q6H Docusate Sodium 100 mg [Docusate Sodium 100 MG] 100 mg PO DAILY Fentanyl 50Mcg Patch [Duragesic 50MCG Patch] 50 mcg TOP Q3D Additional Instructions: PRISON ORDERS: ADMIT TO ENVIVE REGULAR DIET OXYGEN AT 3L/NC SEE ATTACHED MED LIST [facility] TO FOLLOW AND MANAGE PAIN Follow up with: KAT JARA NP [Primary Care Provider] - Forms: Transfer Record [facility]
[2023-03-14] MEDS: Flonase NASAL NS SCH (13:52)
[2023-03-14] MEDS ORDERED: HYDROMORPHONE 30 MG/30 ML-NS PCA IV PRN (14:00)
[2023-03-14 16:24] VITALS: BP 125/59; PULSE 76; O2SAT 96
== END 2023-03-14 17:15 | disposition home health service (06) ==
LOC: ED 07:05 → MED SURG 10:30
PROVIDERS: ADMIT Family Medicine; ATTEND Family Medicine
DX: S32.000A Wedge compression fracture of unspecified lumbar vertebra, initial encounter for closed fracture (principal); J18.9 Pneumonia, unspecified organism; S22.31XA Fracture of one rib, right side, initial encounter for closed fracture; I10 Essential (primary) hypertension; E78.5 Hyperlipidemia, unspecified; N81.10 Cystocele, unspecified; M81.0 Age-related osteoporosis without current pathological fracture; E87.1 Hypo-osmolality and hyponatremia; E87.6 Hypokalemia; R07.9 Chest pain, unspecified; R53.1 Weakness; Z20.828 Contact with and (suspected) exposure to other viral communicable diseases; Z79.899 Other long term (current) drug therapy
CPT/HCPCS: 36415; 70450; 71045; 71250; 72125; 74176; 80053; 81001; 83605; 83735; 83880; 84134; 84484; 85025; 85027; 85610; 85730; 87040; 87086; 93005; 93268; 94762; 96365; 96374; 96375; 99285; G0378; Q3014; J0456; J0696; J1170; J1885; J2270; J2405; J3010; A9270-GY